=== PATIENT | female | born 1950 | race Caucasian/White ===

== ENCOUNTER 2020-06-05 10:15 | Inpatient (IN) | payer MEDICARE ==
[~2020-06-05] VITALS: Ht 165.1 cm; Wt 156.5 kg
[2020-06-05] VITALS (12 sets, daily range): BP systolic 100–154; BP diastolic 64–80
--- NOTE | 2020-06-05 10:15 | NUR ---
1000 ARRIVAL PT ARRIVED TO ED WITH C/O RIGHT KNEE PAIN. PT WAS AT A REST STOP WHEN THE WIND KNOCKED HER DOWN LANDING ON HER RIGHT KNEE. PT HAS ABRASION TO RIGHT KNEE WITH NO ACTIVE BLEEDING. OUTWARD ROTATION NOTED TO RIGHT LEG, PT DENIES ANY HIP PAIN. 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 BEDSIDE MONITORS APPLIED. VITAL SIGNS STABLE. BED IN LOW LOCKED POSITION. 20G IV TO RIGHT AC PLACED BY EMS PRIOR TO ARRIVAL.
[2020-06-05] MEDS ORDERED: ADACEL VIAL IM ONE ×2 (10:27→10:30)
--- NOTE | 2020-06-05 10:35 | ER.PDOC ---
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 Patient was caught by wind and lost her balance. She did not hit her head. Onset: just prior to arrival Where: street Context: fall Severity: moderate Allergies: Coded Allergies: No Known Allergies (Unverified , 06/05/20) Past Medical History Medical History: arrhythmia, hypertension Surgical History: appendectomy, cholecystectomy, , hysterectomy, knee Family History Significant Family History: no pertinent family hx Social History Smoking: non-smoker Alcohol Use: none Drug Use: none Review of Systems Constitutional: no symptoms reported EENTM: no symptoms reported Respiratory: no symptoms reported Cardiovascular: no symptoms reported Gastrointestinal: no symptoms reported Musculoskeletal: see HPI All Other Systems: Reviewed and Negative Physical Exam General Appearance: Alert, No Apparent Distress Foot: nml inspection, non-tender, nml color/temp, skin intact Ankle: nml inspection, non-tender, nml ROM, no joint swelling, skin intact Knee: tenderness (right knee), swelling Thigh/Hip: nml inspection 1 - tenderness with abrasion Gait: unable to bear weight Neuro/Vasc/Tendon: sensation nml, motor nml, no vascular compromise, tendon function nml Skin: warm/dry Head/ENT: nml inspection, pharynx nml Neck/Back: nml inspection, non-tender Abdomen: non-tender, pelvis stable Results/Orders Results/Orders Orders - MILES TRAVIS MD Xr Knee Rt 2v (06/05/20 10:23) Diph,Pertuss(Acell),Tet Vac/Pf (Adacel V (06/05/20 10:30) Diph,Pertuss(Acell),Tet Vac/Pf (Adacel V (06/05/20 10:27) Cbc With Auto Diff (06/05/20 10:34) Comprehensive Metabolic Panel (06/05/20 10:34) PT (06/05/20 10:34) Partial Thromboplastin Time. (06/05/20 10:34) Xr Chest 1v (06/05/20 10:34) Ekg-Routine (06/05/20 10:34) Hydromorphone Hcl (Dilaudid) (06/05/20 11:47) Phytonadione (Vit K1) (Vitamin K) (06/05/20 11:49) Phytonadione (Vit K1) (Vitamin K) (06/05/20 11:53) Hydromorphone Hcl (Dilaudid) (06/05/20 11:53) Propofol (Diprivan) (06/05/20 11:58) 0.9 % Sodium Chloride (Ns 1000ml) (06/05/20 11:58) Vital Signs Date Time Temp Pulse Resp B/P (MAP) Pulse Ox O2 Delivery O2 Flow Rate FiO2 06/05/20 11:46 20 06/05/20 11:46 98.1 66 20 114/79 (91) 92 Nasal Canula 2.00 06/05/20 11:15 98.1 66 20 113/72 (86) 92 Nasal Canula 2.00 06/05/20 11:15 20 06/05/20 10:49 20 06/05/20 10:49 98.1 64 20 115/79 (91) 92 Nasal Canula 2.00 06/05/20 10:24 20 06/05/20 10:23 98.1 70 20 154/70 (98) 92 Nasal Canula 06/05/20 10:15 98.1 70 20 92 06/05/20 10:15 98.1 70 20 154/70 (98) 92 Nasal Canula 2.00 06/05/20 10:15 98.1 70 20 Administered Medications Medications (Trade) Dose Ordered Sig/Renée Route PRN Reason Start Time Stop Time Status Last Admin Dose Admin Diphtheria/ Tetanus/Acell Pertussis (Adacel Vial) 0.5 ml ONCE ONCE IM 06/05/20 10:30 06/05/20 10:31 DC 06/05/20 10:29 0.5 ML Laboratory Tests Test 06/05/20 10:43 White Blood Count 9.9 10^3/uL (4.5-11.0) Red Blood Count 4.93 10^6/uL (4.00-5.20) Hemoglobin 14.9 g/dL (12.0-15.0) Hematocrit 45.9 % (36.0-46.0) Mean Corpuscular Volume 93.1 fL (78-100) Mean Corpuscular Hemoglobin 30.2 pg (26-34) Mean Corpuscular Hemoglobin Concent 32.5 g/dL (33-36.5) L Red Cell Distribution Width 13.2 % (11.5-14.5) Platelet Count 208 10^3/uL (150-400) Mean Platelet Volume 8.9 fL (7.8-11.0) Neutrophils (%) (Auto) 80.7 % (41.0-85.0) Lymphocytes (%) (Auto) 14.3 % (24.0-44.0) L Monocytes (%) (Auto) 4.4 % (5.0-12.0) L Neutrophils # (Auto) 8.0 10^3/uL (1.8-7.7) H Lymphocytes # (Auto) 1.41 10^3/uL1 (1.0-4.8) Monocytes # (Auto) 0.4 10^3/uL (0.3-0.8) Absolute Immature Granulocyte (auto 0.03 10^3 u/L (0-2) Absolute Eosinophils (auto) 0.0 10^3/uL (0.0-0.2) Immature Granulocytes % 0.30 % (0.00-0.50) Eosinophils % 0.2 % (0.0-5.0) Basophils % 0.1 % (0.0-0.2) Basophils # 0.0 10^3/uL (0.0-0.1) Prothrombin Time 27.0 SEC (9.3-11.3) H Prothrombin Time INR (Non-Therap) 2.7 Activated Partial Thromboplast Time 26.9 SEC (24.67-30.72) Sodium Level 141 mmol/L (132-145) Potassium Level 4.3 mmol/L (3.6-5.2) Chloride Level 105.0 mmol/L (96-109) Carbon Dioxide Level 27.2 mmol/L (20.0-32) Anion Gap 13.1 Blood Urea Nitrogen 14 mg/dL (7-18) Creatinine 1.20 mg/dL (0.59-1.40) Estimated GFR () 53.7 (>/=60) Est GFR (CKD-EPI)(Non-Afr Latvian) 44.4 (>/=60) BUN/Creatinine Ratio 11.0 Glucose Level 134 mg/dL (70-110) H Calcium Level 9.1 mg/dL (8.4-10.5) Total Bilirubin 0.5 mg/dL (0.2-1.0) Aspartate Amino Transferase (AST) 13 U/L (0-35) Alanine Aminotransferase (ALT) 19 U/L (12-78) Alkaline Phosphatase 91 U/L (50-136) Total Protein 7.1 g/dL (6.4-8.2) Albumin 3.7 g/dL (3.4-5.0) Globulin 3.4 Albumin/Globulin Ratio 1.088 Progress Progress X rays right knee: Distal transverse femoral fracture immediately proximal to the knee arthroplasty. ER DEPART Departure Time of Disposition: 12:22 Disposition: 09 ADMITTED INPATIENT Impression: Primary Impression: Fracture, femur Additional Impressions: Abrasion NEC Fall Condition: Stable Comments Admitted to Dr. Brasher Duration or Time Spent with Pa: 60 min Problem Qualifiers Primary Impression: Fracture, femur Encounter type: initial encounter Femur location: shaft Fracture type: closed Fracture morphology: transverse Fracture alignment: displaced Laterality: right Qualified Codes: S72.321A - Displaced transverse fracture of shaft of right femur, initial encounter for closed fracture Additional Impressions: Fall Encounter type: initial encounter Qualified Codes: W19.XXXA - Unspecified fall, initial encounter MILES TRAVIS MD Jun 05, 2020 10:35
[2020-06-05 10:46] LABS: BASOPHIL % 0.1 % (0.0-0.2); EOSINOPHIL % 0.2 % (0.0-5.0); LYMPHOCYTES # 1.41 10^3/uL1 (1.0-4.8); LYMPHOCYTES % 14.3 % (24.0-44.0); MEAN CORP HGB 30.2 pg (26-34); MONOCYTES # 0.4 10^3/uL (0.3-0.8); MONOCYTES % 4.4 % (5.0-12.0); NEUTROPHILS % 80.7 % (41.0-85.0); PLATELET COUNT 208 10^3/uL (150-400); RED CELL DISTRIBUTION WIDTH 13.2 % (11.5-14.5)
--- NOTE | 2020-06-05 10:53 | PCM.EKG ---
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
--- NOTE | 2020-06-05 10:56 | NUR ---
HOME MEDICATIONS PT DOES NOT HAVE HOME MEDICATION LIST WITH HER. DAUGHTER WILL PROVIDE IT AT A LATER TIME.
[2020-06-05 11:08] LABS: CALCIUM 9.1 mg/dL (8.4-10.5); CARBON DIOXIDE 27.2 mmol/L (20.0-32)
--- NOTE | 2020-06-05 11:11 | NUR ---
MARYURI ZAMORA MBA ON THE PHONE WITH DOCTOR WAHL'S OFFICE AT THIS TIME.
--- NOTE | 2020-06-05 11:14 | DIREP ---
PROCEDURE:XRAY KNEE 2 VWS-RT COMPARISON:None. INDICATIONS:pain/injury FINDINGS: BONES:Distal transverse right femoral fracture immediately proximal to the right knee prosthesis, posterior displacement JOINTS:Normal. SOFT TISSUES:Soft tissue swelling OTHER:No additional findings. CONCLUSION:Distal transverse femoral fracture immediately proximal to the knee arthroplasty. Dictated by: Pepe Wilkerson MD on 06/05/2020 at 11:12 AM
--- NOTE | 2020-06-05 11:16 | DIREP ---
PROCEDURE:CHEST 1 VIEW COMPARISON:None. INDICATIONS:Medical clearance for surgery FINDINGS: LUNGS/PLEURA:No significant pulmonary parenchymal abnormalities. No effusions. VASCULATURE:Normal. Unremarkable pulmonary vasculature. CARDIAC:Normal. No cardiac silhouette abnormality or cardiomegaly. MEDIASTINUM:Left prepectoral pacemaker, dual lead. BONES:Normal. No fracture or visible bony lesion. OTHER:Negative. CONCLUSION:Clear AP portable lordotic chest, left prepectoral pacemaker Dictated by: Pepe Wilkerson MD on 06/05/2020 at 11:13 AM
--- NOTE | 2020-06-05 11:30 | NUR ---
DR MARYURI WAHL AT BEDSIDE.
[2020-06-05] MEDS ORDERED: DILAUDID IV STA (11:47)
[2020-06-05] MEDS ORDERED: VITAMIN K IM STA (11:49)
[2020-06-05] MEDS ORDERED: DILAUDID ONE ×2 (11:53→17:49)
[2020-06-05] MEDS ORDERED: VITAMIN K ONE (11:53)
[2020-06-05] MEDS ORDERED: NS 1000ML 1,000 ML ONE (11:58)
[2020-06-05] MEDS ORDERED: DIPRIVAN IV ONE (11:58)
--- NOTE | 2020-06-05 12:00 | NUR ---
CLOSED REDUCTION DR WAHL, Rosie ENGLE CRNA CLAIM AUDITORBia GONSALVES RN AT BEDSIDE. DR WAHL PERFORMED CLOSED REDUCTION AND PLACED KNEE IMMOBLIZER. START 1200, STOP 1215.
--- NOTE | 2020-06-05 12:01 | NUR ---
PAIN MEDICATION ANESTHESIA IS AT BEDSIDE TO PERFORM SEDATION FOR REDUCTIONAND REQUESTED TO HOLD PAIN MEDICATION AT THIS TIME.
--- NOTE | 2020-06-05 12:18 | NUR ---
DR CASTILLO PT ALERT AND ORIENTED, DR CASTILLO AT BEDSIDE TO EVALUATE PT.
--- NOTE | 2020-06-05 12:40 | DIREP ---
PROCEDURE:XRAY KNEE 2 VWS-RT COMPARISON:[facility], , XRAY KNEE 1-2 VWS-RT, 06/05/2020, 10:12 AM. INDICATIONS:REDUCTION FINDINGS: BONES:1.7 cm posterior displacement of the distal fragment is noted following reduction of periprosthetic fracture of the distal femur. JOINTS:The right knee arthroplasty remains in anatomic alignment. SOFT TISSUES:Normal. OTHER:No additional findings. CONCLUSION: 1. Improved alignment of periprosthetic fracture of the distal femur following closed reduction. 2. 1.7 cm posterior displacement of the distal fragment is now noted. Dictated by: Edvin Ibrahim M.D. on 06/05/2020 at 12:36 PM
--- NOTE | 2020-06-05 12:58 | NUR ---
[facility] STATED ROOM IS BEING CLEANED AT THIS TIME.
--- NOTE | 2020-06-05 13:37 | NUR ---
ROOM STATUS ROOM BEING CLEANED AND NOT AVAILABLE AT THIS TIME.
--- NOTE | 2020-06-05 14:00 | NUR ---
REPORT RECEIVED REPORT FROM JOSSELYN SANDOVAL. ASSUMED CARE AT THIS TIME. PATIENT DENIES AT THIS TIME
[2020-06-05] MEDS: LACTATED RINGERS 1,000 ML IV SCH (15:00)
[2020-06-05] MEDS ORDERED: BUSP10TA PO (15:14)
[2020-06-05] MEDS ORDERED: ASPI-667 PO (15:14)
[2020-06-05] MEDS ORDERED: SPIR25TA PO (15:14)
[2020-06-05] MEDS ORDERED: CITA40TA5 PO (15:14)
[2020-06-05] MEDS ORDERED: FLEC50TA PO (15:14)
[2020-06-05] MEDS ORDERED: BUPR150T23 PO (15:14)
[2020-06-05] MEDS ORDERED: [UNRECOGNIZED DRUG - CODE] PO (15:14)
[2020-06-05] MEDS ORDERED: WARF-35 PO ×2 (15:14)
[2020-06-05] MEDS ORDERED: ULTRAM ONE (16:54)
[2020-06-05] MEDS ORDERED: ULTRAM PO PRN ×2 (17:00→20:30)
--- NOTE | 2020-06-05 17:00 | NUR ---
MEDICATION RECEIVED ORDER FROM RAYO WAY FOR TRAMADOL 50 MG PO Q 6HRS.
--- NOTE | 2020-06-05 17:17 | PRM.CONS ---
CONSULTATION CONSULTATION Consult date: June 05, 2020 Attending physician: Dr. Trenton Brasher Reason for consultation: Concurrent medical care Consultation note: Patient is a 70-year-old female who [place] and she tripped and fell over. She had extreme pain to her right knee when this happened and she could not get up. She remembers everything that happened to her when she fell down. She denies any loss of consciousness. Paramedics were called and she was brought to the ER where she was found to have a femur fracture and was subsequently admitted to Ortho service. I was asked to come evaluate her and I did see her in the ER. She is a very poor historian but what I could gather from her was that she underwent a right total knee replacement 2 months ago and had general anesthesia and did fine with that. She did report that it took her a while to wake up from anesthesia but she did not require oxygen and she did fine with therapy afterwards. She denies any recent chest pain or fever or chills. She does report some shortness of breath but this is been going on for a long time. She denies any fatigue or exercise intolerance lately. She denies any hemoptysis/hematochezia/melena/hematemesis. She denies any abdominal pain and no dysuria and no diarrhea or constipation. She denies any night sweats and no syncope and no lethargy. Past medical history: Chronic atrial fibrillation, hypertension, obesity, obstructive sleep apnea Past surgical history: Appendectomy, cholecystectomy, , hysterectomy, right knee replacement, pacemaker placement Allergies: No known drug allergies Social history: No tobacco, no alcohol, no drug use Family history: Noncontributory for this admission Medications: They are currently getting a medication list for her since she does not know the names of her medications at this time Physical exam: Temperature 98.1, pulse 70, respirations 20, blood pressure 154/70, O2 sat 92% HEENT: OP clear, moist mucous membranes Neck: Supple, no JVD noted CV: S1 and S2 audible, PMI is laterally displaced, no tachycardia Lungs: Adequate aeration bilaterally with some decreased breath sounds at the bases Abdomen: Positive bowel sounds, soft abdomen, obese Extremities: Mild ankle edema noted bilaterally, no petechia, no purpura Neuro: Right leg is a mobilize currently but no gross motor or sensory deficits on the other extremities noted EKG: Sinus rhythm noted Labs: CBC is normal, PT 27, INR 2.7, chemistry panel looks okay with a glucose of 134 Chest x-ray: Pacemaker noted but no acute cardiopulmonary issues noted Right knee/leg x-rays: Displaced femur fracture above the right knee replacement Assessment/recommendation: We have this elderly female who has fallen and sustained a femur fracture and is adequately anticoagulated on Coumadin therapy for her history of A. 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 I plan to reverse her Coumadin since surgery is anticipated for tomorrow. The plan is to put her back on Coumadin once she is not a high risk for any bleeding. She does have a history of obstructive sleep apnea and is currently not on CPAP since she lost her machine 3 years ago; her O2 sats are adequate at this point so I will just follow her and will use CPAP in the hospital if she has any respiratory issues after surgery. MARIE CASTILLO MD Jun 05, 2020 17:17
--- NOTE | 2020-06-05 17:31 | NUR ---
ORDERS RECEIVED ORDERS FROM DR CASTILLO FOR 5MG VITAMIN K IV ONE TIME. REDRAW PTINR @[id number] Addendum: 06/05/20 at 1740 by Risa Healy RN - Med/commercial management accountant CANCEL THIS ORDER. WAS UNAWARE PATIENT HAD VITAMIN K IN ER.
--- NOTE | 2020-06-05 17:40 | NUR ---
LAB DRAW PTINR AT [address] CASTILLO WITH RESULTS
--- NOTE | 2020-06-05 17:45 | NUR ---
MEDICATION NOTIFIED DR CASTILLO PATIENT IS PAIN OF 9 ON HER RIGHT KNEE AFTER TAKING SCHEDULED 50 MG TRAMADOL PO. RECEIVED ORDER FOR 1 MG DIAUDID IV ONE TIME.
[2020-06-05] MEDS ORDERED: DILAUDID IV PRN (18:00)
[2020-06-05] MEDS ORDERED: SUBLIMAZE ONE (18:17)
[2020-06-05 19:09] LABS: BILIRUBIN,URINE NEGATIVE (NEGATIVE); UA COLOR YELLOW (YELLOW)
[2020-06-05 19:10] LABS: UROBILINOGEN,URINE NORMAL (NEGATIVE)
[2020-06-05] MEDS ORDERED: SUBLIMAZE IV ONE (19:30)
--- NOTE | 2020-06-05 21:25 | NUR ---
NOTIFIED OF PROTHROMBIN 22.6 AND INR 2.2. ORDER RECEIVED FOR VITAMIN K 5MG IV X1 DOSE .
[2020-06-05] MEDS ORDERED: VITAMIN K IV STA (21:27)
[2020-06-05] MEDS ORDERED: NS 100ML 100 ML IV ONE (21:35)
--- NOTE | 2020-06-05 21:40 | NUR ---
VITAMIN K 5MG ADDED TO 100ML NORMAL SALINE TO INFUSE OVER 30 MINUTES.
--- NOTE | 2020-06-05 22:20 | CNH ---
DATE OF CONSULTATION: 06/05/2020 CHIEF COMPLAINT: Painful right knee. HISTORY OF PRESENT ILLNESS: The patient is a 70-year-old female who fell today at a local gas station and injured the right knee. The patient had a total knee arthroplasty in March 2019. The patient was ambulating independently without a walker or a cane. Her x-rays showed the displaced supracondylar periprosthetic fracture of the right femur and I was consulted for further evaluation and treatment. PHYSICAL EXAMINATION: Today shows that the patient had a small abrasion about the anterior portion of the right knee. She has a healed anterior incision. There is decreased range of motion secondary to pain as well as pain with palpation, but no open wounds. She has no other areas of tenderness or deformity. Her x-rays revealed a displaced distal femur fracture, periprosthetic. The patient has good sensation about the right foot as well as 2+ dorsalis pedis pulse. ASSESSMENT: Closed displaced periprosthetic distal femur fracture, right femur. PLAN: The patient was given some IV Diprivan by the Anesthesia Department. The fracture was reduced. The post-reduction x-rays show satisfactory reduction of the fracture. The patient was placed in a knee immobilizer. She still has a good 2+ dorsalis pedis pulse. The patient is currently on Coumadin for atrial fibrillation and has an elevated INR. She will be given vitamin K and we will try to improve her INR before proceeding with ORIF. We will ask Dr. Mckeon to see the patient in consultation. Trenton Brasher MD DR: MAI/guerita JOB# [id number]
--- NOTE | 2020-06-05 23:50 | NUR ---
PT GIVEN SPONGE BATH WITH SURGICAL SCRUB. COMPLETE LINEN CHANGE AND GOWN CHANGE.
[2020-06-06] VITALS (14 sets, daily range): BP systolic 97–135; BP diastolic 38–98
[2020-06-06] MEDS: VALIUM PO PRN
--- NOTE | 2020-06-06 00:01 | NUR ---
PT NPO AT THIS TIME.
[2020-06-06] MEDS ORDERED: DILAUDID IV ONE (02:30)
[2020-06-06] MEDS: LACTATED RINGERS 1,000 ML IV SCH ×3 (03:45→21:45)
[2020-06-06 05:02] LABS: MEAN CORP HGB 30.1 pg (26-34); RED CELL DISTRIBUTION WIDTH 13.2 % (11.5-14.5)
[2020-06-06 05:17] LABS: CALCIUM 8.4 mg/dL (8.4-10.5); CARBON DIOXIDE 29.6 mmol/L (20.0-32)
[2020-06-06] MEDS ORDERED: DILAUDID ONE (06:07)
--- NOTE | 2020-06-06 06:27 | NUR ---
DR. CASTILLO NOTIFIED OF PT PT 15.1 AND INR 1.5 ORDER RECEIVED FOR VIT K 5MG TO BE GIVEN IV AND HAVE 1 UNIT FFP READY INCASE NEEDED IN SURGERY.
[2020-06-06] MEDS ORDERED: VITAMIN K IV STA (06:29)
[2020-06-06] MEDS ORDERED: NS 100ML 100 ML IV ONE ×2 (06:36→09:42)
--- NOTE | 2020-06-06 06:41 | NUR ---
VIT K 5MG GIVEN IV IN 100 ML OF NS TO INFUSE OVER 30 MINUTES.
--- NOTE | 2020-06-06 09:26 | PCM.HP ---
History of Present Illness Reason for Visit: (1) Femur fracture, right ICD Code: S72.91XA - Unspecified fracture of right femur, initial encounter for closed fracture SNOMED: 14108514, [id number] Was this Problem Present on Ad: Yes-DX present @time ofIP Hx of Present Illness patient states she fell yesterday while at the bus stop. Patient cant remember how she landed. Patient doesn't use any assistive devices. Patient had a right total knee arthroplasty done in March 2020. Right TKA was done in [place], [place]. Patient has a history of HTN, depression and anxiety. Doesn't know her medications currently. Sister is sending her medication list. X-rays show displaced right distal femur fracture. Hardware of knee intact. Patient is morbidly obese. Dr Brasher reduced the femur in the ER. Patient states her pain is currently controlled. Review of Systems Constitutional: No: Fever, Chills, Sweats, Weakness, Malaise, Other Eyes: No: Pain, Vision change, Conjunctivae inflammation, Eyelid inflammation, Other, Redness ENT: No: Ear pain, Ear discharge, Nose pain, Nose discharge, Nose congestion, Mouth pain, Mouth swelling, Throat pain, Throat swelling, Other Respiratory: No: Cough, Dry, Shortness of breath, SOB with excertion, Wheezing, Hemoptysis, Pleuritic Pain, Sputum, Wheezing, Other Cardiovascular: No: Chest Pain, Palpitations, Orthopnea, Paroxysmal Noc. Dyspnea, Edema, Lt Headedness, Other Gastrointestinal: No: Nausea, Vomiting, Abdominal Pain, Diarrhea, Constipation, Melena, Hematochezia, Other Genitourinary: No Dysuria, No Frequency, No Incontinence, No Hematuria, No Retention, No Other Musculoskeletal: other (right leg pain) Skin: No: Rash, Lesions, Jaundice, Bruising, Other Neurological: No: Weakness, Numbness, Incoordination, Change in speech, Confusion, Seizures, Other Allergies: Coded Allergies: No Known Allergies (Unverified , 06/05/20) Scheduled Aspirin (Aspirin), 1 TAB PO DAILY, (Reported) Bupropion Hcl (Bupropion Xl), 3 TAB PO DAILY, (Reported) Buspirone Hcl (Buspirone Hcl), 1 TAB PO TID, (Reported) Citalopram Hydrobromide (Citalopram Hbr), 1 TAB PO DAILY, (Reported) Flecainide Acetate (Flecainide Acetate), 50 MG PO BID, (Reported) Oxybutynin Chloride (Oxybutynin Chloride Er), 1 TAB PO DAILY, (Reported) Spironolactone 25MG (Aldactone 25MG), 1 TAB PO DAILY, (Reported) Warfarin Sodium (Warfarin Sodium), 1.5 TAB PO -W-, (Reported) Warfarin Sodium (Warfarin Sodium), 1 TAB PO [id number], (Reported) VTE VTE Risk Total Score: 2 VTE Risk Score VTE Risk: Score 0-1 = Low Risk (Aggressive mobilization; early ambulation; no VTE prophylaxis required) Score 2: Moderate Risk (Intermittent/Pneumatic Compression Device OR Lovenox/Heparin/Coumadin) Score 3-4: High Risk (Intermittent/Pneumatic Compression Device AND Lovenox/Heparin/Coumadin) Score > or =5: Highest Risk (Intermittent/Pneumatic Compression Device AND Lovenox/Heparin/Coumadin) VTE VTE Present on Admission: No Currently receiving anticoagul: Yes VTE Risk Total Score: 2 Exam Vital Signs Vital Signs Date Time Temp Pulse Resp B/P (MAP) Pulse Ox O2 Delivery O2 Flow Rate FiO2 06/06/20 08:03 98.4 63 16 100/59 (73) 93 Nasal Canula 2.00 General Appearance: Alert, Oriented X3, Cooperative, No acute distress HEENT: Atraumatic, PERRLA, EOMI, Mucous membr. moist/pink, Other (glasses) Respiratory: Clear to auscultation, Normal air movement Cardiovascular: Regular rate, Normal S1, Normal S2 Abdominal: Normal bowel sounds, Soft, No tenderness Extremities: No clubbing, No edema, Normal pulses, Other (right leg was reduced by Dr Brasher in the ER. Currently in knee immobilizer. Neuros intact.) Skin: No rash, No breakdown, No lesions Neuro: Normal gait, Normal speech, Strength at 5/5 X4 ext, Normal tone Psych/Mental Status: Mental status NL, Mood NL Assessment/Plan Assessment/Plan Problems: (1) Femur fracture, right ICD Code: S72.91XA - Unspecified fracture of right femur, initial encounter for closed fracture SNOMED: [id number], [id number] Plan Right femur fracture s/p fall- ORIF of right femur planned for today 06/06/20 currently patient is NWB RLE continue medications; PRN pain meds keep knee brace intact fall and safety precautions NPO for surgery Problem Qualifiers (1) Femur fracture, right: Encounter type: initial encounter Fracture alignment: displaced TYRONE BERNAL NP Jun 06, 2020 09:26
[2020-06-06] MEDS ORDERED: ANCEF ONE (09:42)
--- NOTE | 2020-06-06 09:59 | NUR ---
STATUS Pt off of unit at this time for surgical procedure.
[2020-06-06] MEDS ORDERED: BENADRYL PO ONE (10:00)
[2020-06-06] MEDS ORDERED: DIPRIVAN IV ONE (10:55)
[2020-06-06] MEDS ORDERED: SUBLIMAZE ONE (10:56)
[2020-06-06] MEDS ORDERED: ZOFRAN ONE (10:57)
[2020-06-06] MEDS ORDERED: BRIDION IV ONE (10:57)
[2020-06-06] MEDS ORDERED: LIDOCAINE 2% VIAL ONE (10:58)
[2020-06-06] MEDS ORDERED: DECADRON ONE (10:59)
[2020-06-06] MEDS ORDERED: TORADOL ONE (10:59)
[2020-06-06] MEDS ORDERED: ROCURONIUM BROMIDE IV ONE (11:00)
[2020-06-06] MEDS ORDERED: ANCEF 3 GM in NS 100ML 100 ML IV ONE (11:00)
[2020-06-06] MEDS ORDERED: NS 250ML 250 ML IV ONE (11:24)
[2020-06-06] MEDS ORDERED: SODIUM CHLORIDE IRR BOTTLE IR ONE (11:24)
[2020-06-06] MEDS ORDERED: HESPAN 6%-NS INFUSION BAG 500 ML IV ONE (12:17)
--- NOTE | 2020-06-06 14:48 | OPH ---
DATE OF SURGERY: 06/06/2020 PREOPERATIVE DIAGNOSIS: Closed displaced right distal femur periprosthetic fracture. POSTOPERATIVE DIAGNOSIS: Closed displaced right distal femur, periprosthetic fracture of. OPERATIVE PROCEDURE: Open reduction and internal fixation, right distal femur fracture using a Synthes lateral condylar plate, 6-hole. SURGEON: Trenton Brasher MD ANESTHESIA: General endotracheal. BLOOD LOSS: 500 mL. DRAINS: None. DESCRIPTION OF INDICATIONS: The patient is a 70-year-old female. She lives in [place] and was passing through [place] yesterday. She got out of her car and fell injuring the right knee. Approximately 2 months ago, she had right total knee arthroplasty done in [place], [place]. The patient's x-rays showed a displaced supracondylar periprosthetic fracture of the right femur. The patient's prosthesis appeared stable. She had a short oblique fracture that was markedly displaced. The neurovascular exam was normal. The patient was seen by myself in the Emergency Room and the fracture was reduced and she was placed in a long leg splint. The patient's INR was corrected because she is on Coumadin for AFib and she was taken to the operating room today for the above procedure. DESCRIPTION OF PROCEDURE: The patient was placed on the operating table in the supine position. General endotracheal anesthetic was induced without difficulty. The patient was given a general endotracheal anesthetic. Right lower extremity was sterilely prepped and draped. The patient's BMI is 53. The patient had a lateral incision made about the knee. Incision was taken through the skin and the subcutaneous tissues. The bleeding was controlled with cautery. The IT band was opened in line with the skin incision. The vastus lateralis was reflected anteriorly. The fracture was identified and reduced with some bone clamps. We placed a 6-hole Synthes lateral condylar plate against the bone. Distally, the plate was held initially into position with a 7.0 conical screw through the central drill hole. Proximally, a 4.5 cortical screw was used to stabilize the plate proximally. AP and lateral x-rays showed satisfactory reduction of the fracture and satisfactory positioning of the hardware as well as the knee. The patient then had multiple locking screws placed distally as well as two unicortical screws. It could not be passed because of the pegs on the prosthesis. Proximally, she had 3 locking screws and one 4.5 cortical screw placed. The patient's reduction was felt to be satisfactory. Because of the large amount of metal in the patient's leg, it was difficult with the C-arm to fully assess the reduction on the lateral view, but clinically it appeared to be satisfactory. The AP showed satisfactory alignment. The patient had the wounds copiously irrigated. We used some Synthes allograft DBX bone graft anteriorly and medially about the fracture site to help enhance healing. The IT band was then closed with a #2 PDS in an interrupted cubsmd-qu-ocima manner. The deep subcutaneous was closed with a 2-0 Monocryl barbed in a running manner. The superficial subcutaneous was closed with a barbed 2-0 Monocryl in a running manner. The skin was closed with solomon. A large Prevena suction type dressing was applied, reinforced with 4 x 4s, ABD pads, cast padding and Priyank wrap. Knee immobilizer was placed and the patient was extubated in the operating room and sent to recovery in stable condition. Trenton Brasher MD DR: MAI/guerita JOB# [id number]
[2020-06-06] MEDS ORDERED: OFIRMEV IV ONE (15:00)
[2020-06-06] MEDS ORDERED: CEPACOL SORE THROAT LOZENGE MM PRN (15:00)
[2020-06-06] MEDS ORDERED: OFIRMEV 100 ML IV ONE (15:03)
[2020-06-06] MEDS ORDERED: LACTATED RINGERS 1,000 ML ONE (15:40)
[2020-06-06] MEDS ORDERED: ULTRAM ONE ×2 (15:42)
[2020-06-06] MEDS: ULTRAM PO PRN ×2 (15:45→22:42)
--- NOTE | 2020-06-06 15:47 | DIREP ---
PROCEDURE:XRAY FEMUR 2 VWS-RT COMPARISON:[facility], CR, XRAY KNEE 1-2 VWS-RT, 06/05/2020, 11:51 AM. INDICATIONS:POST OP FEMUR FX FINDINGS: BONES:Interval metallic plate and screw fixation of displaced distal femoral fracture. Hardware is well seated and intact. Alignment is improved and near anatomic. Right knee arthroplasty is in place. JOINTS:Anatomic alignment about the knee arthroplasty. SOFT TISSUES:Small joint effusion with air-fluid level . Soft tissue edema about the knee. Surgical solomon overlie the knee. A drain is in place. OTHER:No additional findings. CONCLUSION: Postsurgical change consistent with recent metallic plate and screw fixation of a displaced distal femoral fracture. Hardware is well seated and intact. Alignment is improved and now near anatomic. Dictated by: Jonny Hartley MD on 06/06/2020 at 03:44 PM
--- NOTE | 2020-06-06 16:10 | NUR ---
STATUS Received pt back up to unit from OR at this time. Received report from JAIME Christianson. Pt is stable and resting comfortably at this time. This nurse to continue with the plan of care.
[2020-06-06 17:56] LABS: MEAN CORP HGB 30.9 pg (26-34); RED CELL DISTRIBUTION WIDTH 13.1 % (11.5-14.5)
[2020-06-06] MEDS: TYLENOL PO SCH (18:09)
[2020-06-06] MEDS: ANCEF 2 GM/D5W 50ML 50 ML IV SCH (18:11)
--- NOTE | 2020-06-06 19:32 | PRM.PN ---
Subjective Subjective Date: Jun 06, 2020 Time: 19:15 Subjective Pt back from OR; had some low BPs but improved now; reports pain is ok at this time; no active bleeding reported so far VTE VTE Risk Total Score: 2 VTE Risk Score VTE Risk: Score 0-1 = Low Risk (Aggressive mobilization; early ambulation; no VTE prophylaxis required) Score 2: Moderate Risk (Intermittent/Pneumatic Compression Device OR Lovenox/Heparin/Coumadin) Score 3-4: High Risk (Intermittent/Pneumatic Compression Device AND Lovenox/Heparin/Coumadin) Score > or =5: Highest Risk (Intermittent/Pneumatic Compression Device AND Lovenox/Heparin/Coumadin) Antico:Hep/LMWH/Coum/Xarelto: No Mechanical device ordered: Yes Reasons not ordering prophylax: Blood coag disorder Review of Systems Constitutional: No: Fever, Chills, Sweats, Weakness, Malaise, Other Eyes: No: Pain, Vision change, Conjunctivae inflammation, Eyelid inflammation, Other, Redness ENT: No: Ear pain, Ear discharge, Nose pain, Nose discharge, Nose congestion, Mouth pain, Mouth swelling, Throat pain, Throat swelling, Other Respiratory: No: Cough, Dry, Shortness of breath, SOB with excertion, Wheezing, Hemoptysis, Pleuritic Pain, Sputum, Wheezing, Other Cardiovascular: No: Chest Pain, Palpitations, Orthopnea, Paroxysmal Noc. Dyspnea, Edema, Lt Headedness, Other Gastrointestinal: No: Nausea, Vomiting, Abdominal Pain, Diarrhea, Constipation, Melena, Hematochezia, Other Genitourinary: No Dysuria, No Frequency, No Incontinence, No Hematuria, No Retention, No Other Musculoskeletal: other (right leg pain) Skin: No: Rash, Lesions, Jaundice, Bruising, Other Neurological: No: Weakness, Numbness, Incoordination, Change in speech, Confusion, Seizures, Other Allergies: Coded Allergies: No Known Allergies (Unverified , 06/05/20) Scheduled Aspirin (Aspirin), 1 TAB PO DAILY, (Reported) Bupropion Hcl (Bupropion Xl), 3 TAB PO DAILY, (Reported) Buspirone Hcl (Buspirone Hcl), 1 TAB PO TID, (Reported) Citalopram Hydrobromide (Citalopram Hbr), 1 TAB PO DAILY, (Reported) Flecainide Acetate (Flecainide Acetate), 50 MG PO BID, (Reported) Oxybutynin Chloride (Oxybutynin Chloride Er), 1 TAB PO DAILY, (Reported) Spironolactone 25MG (Aldactone 25MG), 1 TAB PO DAILY, (Reported) Warfarin Sodium (Warfarin Sodium), 1.5 TAB PO -W-, (Reported) Warfarin Sodium (Warfarin Sodium), 1 TAB PO [id number], (Reported) Objective Vitals and I/O Vital Sign - Last 24 Hours 06/05/20 06/05/20 06/05/20 06/06/20 19:57 23:21 23:24 00:05 Temp 98.6 99.4 Pulse 64 64 65 Resp 18 18 18 B/P (MAP) 102/65 (77) 120/74 (89) Pulse Ox 95 96 95 O2 Delivery Nasal Canula Nasal Cannula Nasal Cannula Nasal Canula O2 Flow Rate 2.00 2.00 2.00 06/06/20 06/06/20 06/06/20 06/06/20 04:53 08:03 10:00 14:24 Temp 99.4 98.4 Pulse 67 63 63 Resp 18 16 16 B/P (MAP) 97/64 (75) 100/59 (73) Pulse Ox 97 93 93 O2 Delivery Nasal Canula Nasal Canula Nasal Cannula O2 Flow Rate 2.00 2.00 10 06/06/20 06/06/20 06/06/20 06/06/20 14:24 14:35 14:45 14:55 Temp 100.8 100.8 100.4 Pulse 73 73 75 69 Resp 16 16 18 16 B/P (MAP) 127/79 (95) 128/90 (103) 107/38 (61) 115/67 (83) Pulse Ox 98 98 99 O2 Delivery Non-Rebreather Non-Rebreather Non-Rebreather Non-Rebreather O2 Flow Rate 10 10 10 10 06/06/20 06/06/20 06/06/20 06/06/20 15:05 15:15 15:25 15:35 Pulse 68 71 67 66 Resp 16 14 16 16 B/P (MAP) 123/79 (94) 120/75 (90) 135/98 (110) 126/79 (95) Pulse Ox 99 100 94 95 O2 Delivery Nasal Canula Nasal Canula Nasal Canula Nasal Canula Non-Rebreather Non-Rebreather O2 Flow Rate 3 3 3 3 06/06/20 06/06/20 06/06/20 15:45 15:55 16:45 Temp 99.9 Pulse 66 66 Resp 16 16 B/P (MAP) 122/76 (91) 120/80 (93) Pulse Ox 97 95 O2 Delivery Nasal Canula Nasal Canula Nasal Cannula Non-Rebreather O2 Flow Rate 3 3 2.00 Intake and Output 06/06/20 07:00 Intake Total 1966 ml Output Total 450 ml Balance 1516 ml General: Alert, Oriented X3, Cooperative, No acute distress HEENT: Atraumatic, PERRLA, EOMI, Mucous membr. moist/pink, Other (glasses) Neck: Supple Lungs: Clear to auscultation, Normal air movement Heart: Regular rate, Normal S1, Normal S2 Abdomen: Normal bowel sounds, Soft, No tenderness Extremities: No clubbing, No edema, Normal pulses, Other (right leg was reduced by Dr Brasher in the ER. Currently in knee immobilizer. Neuros intact.) Skin: No significant lesion Neuro: Normal speech, Strength at 5/5 X4 ext, Normal tone Psych/Mental Status: Mental status NL, Mood NL All Results(Lab/Rad) Laboratory Tests Test 06/05/20 20:25 06/06/20 04:45 Prothrombin Time 22.6 SEC 15.1 SEC Prothrombin Time INR (Non-Therap) 2.2 1.5 White Blood Count 8.2 10^3/uL Red Blood Count 3.92 10^6/uL Hemoglobin 11.8 g/dL Hematocrit 37.1 % Mean Corpuscular Volume 94.6 fL Mean Corpuscular Hemoglobin 30.1 pg Mean Corpuscular Hemoglobin Concent 31.8 g/dL Red Cell Distribution Width 13.2 % Platelet Count 171 10^3/uL Mean Platelet Volume 8.9 fL Sodium Level 141 mmol/L Potassium Level 4.0 mmol/L Chloride Level 106.0 mmol/L Carbon Dioxide Level 29.6 mmol/L Anion Gap 9.4 Blood Urea Nitrogen 12 mg/dL Creatinine 1.12 mg/dL Estimated GFR () 58.2 Est GFR (CKD-EPI)(Non-Afr Irish) 48.1 BUN/Creatinine Ratio 10.0 Glucose Level 145 mg/dL Calcium Level 8.4 mg/dL Total Bilirubin 0.7 mg/dL Aspartate Amino Transf (AST/SGOT) 36 U/L Alanine Aminotransferase (ALT/SGPT) 40 U/L Alkaline Phosphatase 91 U/L Total Protein 5.9 g/dL Albumin 3.0 g/dL Globulin 2.9 Albumin/Globulin Ratio 1.034 Current Medications Medications (Trade) Dose Ordered Sig/Renée Route PRN Reason Start Time Stop Time Status Last Admin Dose Admin Diphtheria/ Tetanus/Acell Pertussis (Adacel Vial) 0.5 ml ONCE ONCE IM 06/05/20 10:30 06/05/20 10:31 DC 06/05/20 10:29 Diphtheria/ Tetanus/Acell Pertussis (Adacel Vial) 0.5 ml STK-MED ONCE IM 06/05/20 10:27 06/05/20 10:27 DC Hydromorphone HCl (Dilaudid) 1 mg STAT STAT IV 06/05/20 11:47 06/05/20 11:50 DC 06/05/20 12:26 Hydromorphone HCl (Dilaudid) 2 mg STK-MED ONCE .ROUTE 06/05/20 11:53 06/05/20 11:54 DC Propofol (Diprivan) 200 mg STK-MED ONCE IV 06/05/20 11:58 06/05/20 11:58 DC Sodium Chloride 1,000 ml @ ud STK-MED ONCE .ROUTE 06/05/20 11:58 06/05/20 11:58 DC Cefazolin Sodium 3 gm/Sodium Chloride 100 ml @ 100 mls/hr OT ONCE IV 06/06/20 11:00 06/06/20 11:59 DC Tramadol HCl (Ultram) 50 mg STK-MED ONCE .ROUTE 06/05/20 16:54 06/05/20 16:54 DC Tramadol HCl (Ultram) 50 mg Q6HR PRN PO PAIN 4 - 6 06/05/20 17:00 06/06/20 15:57 DC 06/05/20 17:10 Hydromorphone HCl (Dilaudid) 2 mg STK-MED ONCE .ROUTE 06/05/20 17:49 06/05/20 17:49 DC Hydromorphone HCl (Dilaudid) 1 mg OT PRN IV PAIN 7 - 10 06/05/20 18:00 06/06/20 02:25 DC 06/05/20 18:04 Fentanyl Citrate (Sublimaze) 50 mcg STK-MED ONCE .ROUTE 06/05/20 18:17 06/05/20 18:17 DC Fentanyl Citrate (Sublimaze) 25 mcg OT ONCE IV 06/05/20 19:30 06/06/20 02:25 DC 06/05/20 18:45 Tramadol HCl (Ultram) 100 mg Q4HR PRN PO PAIN 4 - 6 06/05/20 20:30 06/06/20 15:58 DC 06/05/20 22:21 Diazepam (Valium) 5 mg Q6HR PRN PO MUSCLE SPASM 06/05/20 20:30 07/05/20 20:29 06/06/20 00:00 Sodium Chloride 100 ml @ ud STK-MED ONCE IV 06/05/20 21:35 06/05/20 21:35 DC Hydromorphone HCl (Dilaudid) 1 mg OT ONCE IV 06/06/20 02:30 06/06/20 02:31 DC 06/06/20 06:08 Hydromorphone HCl (Dilaudid) 2 mg STK-MED ONCE .ROUTE 06/06/20 06:07 06/06/20 06:07 DC Sodium Chloride 100 ml @ ud STK-MED ONCE IV 06/06/20 06:36 06/06/20 06:36 DC Diphenhydramine HCl (Benadryl) 25 mg OT ONCE PO 06/06/20 10:00 06/06/20 10:01 DC 06/06/20 09:49 Cefazolin Sodium (Ancef) 1 gm STK-MED ONCE .ROUTE 06/06/20 09:42 06/06/20 09:43 DC Sodium Chloride 100 ml @ ud STK-MED ONCE IV 06/06/20 09:42 06/06/20 09:43 DC Propofol (Diprivan) 200 mg STK-MED ONCE IV 06/06/20 10:55 06/06/20 10:55 DC Fentanyl Citrate (Sublimaze) 50 mcg STK-MED ONCE .ROUTE 06/06/20 10:56 06/06/20 10:57 DC Ondansetron HCl (Zofran) 4 mg STK-MED ONCE .ROUTE 06/06/20 10:57 06/06/20 10:57 DC Lidocaine HCl (Lidocaine 2% Vial) 500 mg STK-MED ONCE .ROUTE 06/06/20 10:58 06/06/20 10:58 DC Ketorolac Tromethamine (Toradol) 30 mg STK-MED ONCE .ROUTE 06/06/20 10:59 06/06/20 10:59 DC Rocuronium [place] (Rocuronium [place]) 50 mg STK-MED ONCE IV 06/06/20 11:00 06/06/20 11:00 DC Sodium Chloride (Sodium Chloride Irr Bottle) 1,000 ml STK-MED ONCE IR 06/06/20 11:24 06/06/20 11:24 DC Sodium Chloride 250 ml @ ud STK-MED ONCE IV 06/06/20 11:24 06/06/20 11:24 DC Hetastarch/Sodium Chloride 500 ml @ ud STK-MED ONCE IV 06/06/20 12:17 06/06/20 12:17 DC Tramadol HCl (Ultram) 50 mg Q6H PRN PO PAIN 1 - 3 06/06/20 15:00 07/06/20 14:59 Tramadol HCl (Ultram) 100 mg Q6H PRN PO PAIN 4 - 6 06/06/20 15:00 07/06/20 14:59 06/06/20 15:45 Rivaroxaban (Xarelto) 10 mg Q24HRS PO 06/07/20 15:00 07/07/20 14:59 Docusate Sodium (Colace) 100 mg DAILY PO 06/07/20 09:00 07/07/20 08:59 Throat Lozenges (Cepacol Sore Throat Lozenge) 1 each PRN PRN MM SORE THROAT 06/06/20 15:00 07/06/20 14:59 Famotidine (Pepcid) 20 mg DAILY PO 06/07/20 09:00 07/07/20 08:59 Cefazolin Sodium/ Dextrose (Ancef 2 Gm/D5W 50ml) 2 gm Q8 IV 06/06/20 22:00 06/06/20 16:05 DC Acetaminophen (Tylenol) 1,000 mg Q6HR PO 06/06/20 18:00 07/06/20 17:59 06/06/20 18:09 Acetaminophen 100 ml @ ud STK-MED ONCE IV 06/06/20 15:03 06/06/20 15:03 DC Acetaminophen (Ofirmev) 1,000 mg OT ONCE IV 06/06/20 15:00 06/06/20 15:37 DC 06/06/20 15:08 Tramadol HCl (Ultram) 50 mg STK-MED ONCE .ROUTE 06/06/20 15:42 06/06/20 15:42 DC Tramadol HCl (Ultram) 50 mg STK-MED ONCE .ROUTE 06/06/20 15:42 06/06/20 15:43 DC Cefazolin Sodium/ Dextrose 50 ml @ 50 mls/hr Q8H IV 06/06/20 19:00 06/07/20 11:59 06/06/20 18:11 Course Sepsis Screening Results: Posi: POSITIVE Sepsis Qualifier/Stage: SEPSIS RISK Duration or Total Time Spent w: 60 min Vitals & review Data Vital Sign - Last 24 Hours 06/05/20 06/05/20 06/05/20 06/06/20 19:57 23:21 23:24 00:05 Temp 98.6 99.4 Pulse 64 64 65 Resp 18 18 18 B/P (MAP) 102/65 (77) 120/74 (89) Pulse Ox 95 96 95 O2 Delivery Nasal Canula Nasal Cannula Nasal Cannula Nasal Canula O2 Flow Rate 2.00 2.00 2.00 06/06/20 06/06/20 06/06/20 06/06/20 04:53 08:03 10:00 14:24 Temp 99.4 98.4 Pulse 67 63 63 Resp 18 16 16 B/P (MAP) 97/64 (75) 100/59 (73) Pulse Ox 97 93 93 O2 Delivery Nasal Canula Nasal Canula Nasal Cannula O2 Flow Rate 2.00 2.00 10 06/06/20 06/06/20 06/06/20 06/06/20 14:24 14:35 14:45 14:55 Temp 100.8 100.8 100.4 Pulse 73 73 75 69 Resp 16 16 18 16 B/P (MAP) 127/79 (95) 128/90 (103) 107/38 (61) 115/67 (83) Pulse Ox 98 98 99 O2 Delivery Non-Rebreather Non-Rebreather Non-Rebreather Non-Rebreather O2 Flow Rate 10 10 10 10 06/06/20 06/06/20 06/06/20 06/06/20 15:05 15:15 15:25 15:35 Pulse 68 71 67 66 Resp 16 14 16 16 B/P (MAP) 123/79 (94) 120/75 (90) 135/98 (110) 126/79 (95) Pulse Ox 99 100 94 95 O2 Delivery Nasal Canula Nasal Canula Nasal Canula Nasal Canula Non-Rebreather Non-Rebreather O2 Flow Rate 3 3 3 3 06/06/20 06/06/20 06/06/20 15:45 15:55 16:45 Temp 99.9 Pulse 66 66 Resp 16 16 B/P (MAP) 122/76 (91) 120/80 (93) Pulse Ox 97 95 O2 Delivery Nasal Canula Nasal Canula Nasal Cannula Non-Rebreather O2 Flow Rate 3 3 2.00 Intake and Output 06/06/20 07:00 Intake Total 1966 ml Output Total 450 ml Balance 1516 ml Laboratory Tests Test 06/05/20 10:43 06/05/20 18:00 06/05/20 20:25 06/06/20 04:45 White Blood Count 9.9 10^3/uL 8.2 10^3/uL Red Blood Count 4.93 10^6/uL 3.92 10^6/uL Hemoglobin 14.9 g/dL 11.8 g/dL Hematocrit 45.9 % 37.1 % Mean Corpuscular Volume 93.1 fL 94.6 fL Mean Corpuscular Hemoglobin 30.2 pg 30.1 pg Mean Corpuscular Hemoglobin Concent 32.5 g/dL 31.8 g/dL Red Cell Distribution Width 13.2 % 13.2 % Platelet Count 208 10^3/uL 171 10^3/uL Mean Platelet Volume 8.9 fL 8.9 fL Neutrophils (%) (Auto) 80.7 % Lymphocytes (%) (Auto) 14.3 % Monocytes (%) (Auto) 4.4 % Neutrophils # (Auto) 8.0 10^3/uL Lymphocytes # (Auto) 1.41 10^3/uL1 Monocytes # (Auto) 0.4 10^3/uL Absolute Immature Granulocyte (auto 0.03 10^3 u/L Absolute Eosinophils (auto) 0.0 10^3/uL Immature Granulocytes % 0.30 % Eosinophils % 0.2 % Basophils % 0.1 % Basophils # 0.0 10^3/uL Prothrombin Time 27.0 SEC 22.6 SEC 15.1 SEC Prothrombin Time INR (Non-Therap) 2.7 2.2 1.5 Activated Partial Thromboplast Time 26.9 SEC Sodium Level 141 mmol/L 141 mmol/L Potassium Level 4.3 mmol/L 4.0 mmol/L Chloride Level 105.0 mmol/L 106.0 mmol/L Carbon Dioxide Level 27.2 mmol/L 29.6 mmol/L Anion Gap 13.1 9.4 Blood Urea Nitrogen 14 mg/dL 12 mg/dL Creatinine 1.20 mg/dL 1.12 mg/dL Estimated GFR () 53.7 58.2 Est GFR (CKD-EPI)(Non-Afr Irish) 44.4 48.1 BUN/Creatinine Ratio 11.0 10.0 Glucose Level 134 mg/dL 145 mg/dL Calcium Level 9.1 mg/dL 8.4 mg/dL Total Bilirubin 0.5 mg/dL 0.7 mg/dL Aspartate Amino Transf (AST/SGOT) 13 U/L 36 U/L Alanine Aminotransferase (ALT/SGPT) 19 U/L 40 U/L Alkaline Phosphatase 91 U/L 91 U/L Total Protein 7.1 g/dL 5.9 g/dL Albumin 3.7 g/dL 3.0 g/dL Globulin 3.4 2.9 Albumin/Globulin Ratio 1.088 1.034 Urine Collection Type UNKNOWN Urine Color YELLOW Urine Appearance CLEAR Urine Bilirubin NEGATIVE Urine Ketones NEGATIVE Urine Specific Emerson >1.030 Urine pH 5.0 Urine Protein NEGATIVE Urine Urobilinogen NORMAL Urine Nitrate NEGATIVE Urine Leukocyte Esterase NEGATIVE Urine Glucose (Auto)(UA) NEGATIVE Urine Blood MODERATE Urine RBC 2-5 RBC/HPF Urine WBC 0-2 WBC/HPF Urine Squamous Epithelial Cells FEW #/HPF Urine Bacteria NONE SEEN Current Medications Medications (Trade) Dose Ordered Sig/Renée PRN Reason Start Time Stop Time Status Last Admin Acetaminophen (Tylenol) 1,000 mg Q6HR 06/06/20 18:00 07/06/20 17:59 06/06/20 18:09 Cefazolin Sodium/ Dextrose 50 ml @ 50 mls/hr Q8H 06/06/20 19:00 06/07/20 11:59 06/06/20 18:11 Diazepam (Valium) 5 mg Q6HR PRN MUSCLE SPASM 06/05/20 20:30 07/05/20 20:29 06/06/20 00:00 Docusate Sodium (Colace) 100 mg DAILY 06/07/20 09:00 07/07/20 08:59 Famotidine (Pepcid) 20 mg DAILY 06/07/20 09:00 07/07/20 08:59 Rivaroxaban (Xarelto) 10 mg Q24HRS 06/07/20 15:00 07/07/20 14:59 Throat Lozenges (Cepacol Sore Throat Lozenge) 1 each PRN PRN SORE THROAT 06/06/20 15:00 07/06/20 14:59 Tramadol HCl (Ultram) 50 mg Q6H PRN PAIN 1 - 3 06/06/20 15:00 07/06/20 14:59 Tramadol HCl (Ultram) 100 mg Q6H PRN PAIN 4 - 6 06/06/20 15:00 07/06/20 14:59 06/06/20 15:45 LEVEL 1 SEPSIS INFECTION CRITE: ABX Therapy, Recent Invasive Procedure LEVEL 2-SIRS (LIST ALL THAT AP: None/Not assessed Cardiovascular Evidence: Not Assessed or None Hematologic Evidence: None/Not assessed Hepatic Evidence: None/Not assessed Metabolic Evidence: None/Not assessed Neurological Evidence: None/Not assessed Respiratory Evidence: Need for O2 to keep>90% Renal Evidence: None/Not assessed O2 Sat by Pulse Oximetry: 95 Oxygen Flow Rate: 2.00 Assessment/Plan Assessment/Plan Assessment/Plan 70 yo female with fall and R femur fx s/p ORIF with plate, chronic afib, KEVON - follow blood counts and plan to restart coumadin when no active bleeding is noted - pain control and therapy - follow clinically MARIE CASTILLO MD Jun 06, 2020 19:31
[2020-06-06] MEDS ORDERED: ANCEF 2 GM/D5W 50ML IV SCH (22:00)
[2020-06-07] VITALS (9 sets, daily range): BP systolic 100–114; BP diastolic 52–59
[2020-06-07] MEDS: TYLENOL PO SCH ×5 (00:12→23:41)
[2020-06-07] MEDS: VALIUM PO PRN ×2 (00:34→11:04)
--- NOTE | 2020-06-07 00:34 | NUR ---
Valium 5mg given for spasms in right leg.
[2020-06-07] MEDS: ANCEF 2 GM/D5W 50ML 50 ML IV SCH ×2 (03:45→13:40)
[2020-06-07] MEDS: ULTRAM PO PRN ×3 (04:22→18:16)
[2020-06-07 05:05] LABS: MEAN CORP HGB 30.5 pg (26-34); RED CELL DISTRIBUTION WIDTH 13.1 % (11.5-14.5)
[2020-06-07] MEDS: LACTATED RINGERS 1,000 ML IV SCH ×2 (05:50→16:57)
--- NOTE | 2020-06-07 09:19 | PRM.PN ---
Subjective Subjective Date: Jun 07, 2020 Time: 09:09 Subjective patient laying in bed, pain controlled complains of burning under the brace and muscle spasms VSS right leg immobilizer intact, prevenia intact VTE VTE Risk Total Score: 2 VTE Risk Score VTE Risk: Score 0-1 = Low Risk (Aggressive mobilization; early ambulation; no VTE prophylaxis required) Score 2: Moderate Risk (Intermittent/Pneumatic Compression Device OR Lovenox/Heparin/Coumadin) Score 3-4: High Risk (Intermittent/Pneumatic Compression Device AND Lovenox/Heparin/Coumadin) Score > or =5: Highest Risk (Intermittent/Pneumatic Compression Device AND Lovenox/Heparin/Coumadin) Antico:Hep/LMWH/Coum/Xarelto: No Mechanical device ordered: Yes Reasons not ordering prophylax: Blood coag disorder Review of Systems Constitutional: No: Fever, Chills, Sweats, Weakness, Malaise, Other Eyes: No: Pain, Vision change, Conjunctivae inflammation, Eyelid inflammation, Other, Redness ENT: No: Ear pain, Ear discharge, Nose pain, Nose discharge, Nose congestion, Mouth pain, Mouth swelling, Throat pain, Throat swelling, Other Respiratory: No: Cough, Dry, Shortness of breath, SOB with excertion, Wheezing, Hemoptysis, Pleuritic Pain, Sputum, Wheezing, Other Cardiovascular: No: Chest Pain, Palpitations, Orthopnea, Paroxysmal Noc. Dyspnea, Edema, Lt Headedness, Other Gastrointestinal: No: Nausea, Vomiting, Abdominal Pain, Diarrhea, Constipation, Melena, Hematochezia, Other Genitourinary: No Dysuria, No Frequency, No Incontinence, No Hematuria, No Retention, No Other Musculoskeletal: other (right leg pain) Skin: No: Rash, Lesions, Jaundice, Bruising, Other Neurological: No: Weakness, Numbness, Incoordination, Change in speech, Confusion, Seizures, Other Allergies: Coded Allergies: No Known Allergies (Unverified , 06/05/20) Scheduled Aspirin (Aspirin), 1 TAB PO DAILY, (Reported) Bupropion Hcl (Bupropion Xl), 3 TAB PO DAILY, (Reported) Buspirone Hcl (Buspirone Hcl), 1 TAB PO TID, (Reported) Citalopram Hydrobromide (Citalopram Hbr), 1 TAB PO DAILY, (Reported) Flecainide Acetate (Flecainide Acetate), 50 MG PO BID, (Reported) Oxybutynin Chloride (Oxybutynin Chloride Er), 1 TAB PO DAILY, (Reported) Spironolactone 25MG (Aldactone 25MG), 1 TAB PO DAILY, (Reported) Warfarin Sodium (Warfarin Sodium), 1.5 TAB PO -W-, (Reported) Warfarin Sodium (Warfarin Sodium), 1 TAB PO [id number], (Reported) Objective Vitals and I/O Vital Sign - Last 24 Hours 06/06/20 06/06/20 06/06/20 06/06/20 10:00 14:24 14:24 14:35 Temp 100.8 100.8 Pulse 63 73 73 Resp 16 16 16 B/P (MAP) 127/79 (95) 128/90 (103) Pulse Ox 93 98 O2 Delivery Nasal Cannula Non-Rebreather Non-Rebreather O2 Flow Rate 10 10 10 06/06/20 06/06/20 06/06/20 06/06/20 14:45 14:55 15:05 15:15 Temp 100.4 Pulse 75 69 68 71 Resp 18 16 16 14 B/P (MAP) 107/38 (61) 115/67 (83) 123/79 (94) 120/75 (90) Pulse Ox 98 99 99 100 O2 Delivery Non-Rebreather Non-Rebreather Nasal Canula Nasal Canula Non-Rebreather O2 Flow Rate 10 10 3 3 06/06/20 06/06/20 06/06/20 06/06/20 15:25 15:35 15:45 15:55 Temp 99.9 Pulse 67 66 66 66 Resp 16 16 16 16 B/P (MAP) 135/98 (110) 126/79 (95) 122/76 (91) 120/80 (93) Pulse Ox 94 95 97 95 O2 Delivery Nasal Canula Nasal Canula Nasal Canula Nasal Canula Non-Rebreather Non-Rebreather O2 Flow Rate 3 3 3 3 06/06/20 06/06/20 06/06/20 06/06/20 16:45 21:00 21:15 23:44 Temp 99.2 Pulse 66 64 Resp 14 16 B/P (MAP) 104/60 (75) Pulse Ox 96 96 O2 Delivery Nasal Cannula Nasal Cannula Nasal Canula Nasal Cannula Non-Rebreather O2 Flow Rate 2.00 2.00 3 2.00 FiO2 28 06/07/20 06/07/20 06/07/20 06/07/20 00:15 04:23 07:27 08:49 Temp 99.2 98.8 98.7 Pulse 66 61 61 97 Resp 16 16 20 18 B/P (MAP) 105/56 (72) 102/52 (69) 100/55 (70) Pulse Ox 96 96 95 95 O2 Delivery Nasal Canula Nasal Canula Nasal Canula Nasal Cannula Non-Rebreather Non-Rebreather O2 Flow Rate 3 3 2.00 2.00 Intake and Output 06/07/20 07:00 Intake Total 6564 ml Output Total 2160 ml Balance 4404 ml General: Alert, Oriented X3, Cooperative, No acute distress HEENT: Atraumatic, PERRLA, EOMI, Mucous membr. moist/pink, Other (glasses) Neck: Supple Lungs: Clear to auscultation, Normal air movement Heart: Regular rate, Normal S1, Normal S2 Abdomen: Normal bowel sounds, Soft, No tenderness Extremities: No clubbing, No edema, Normal pulses, Other (right leg immobilizer intact, prevenia intact. Neuros intact) Skin: No significant lesion Neuro: Normal speech, Strength at 5/5 X4 ext, Normal tone Psych/Mental Status: Mental status NL, Mood NL All Results(Lab/Rad) Laboratory Tests Test 06/05/20 20:25 06/06/20 04:45 Prothrombin Time 22.6 SEC 15.1 SEC Prothrombin Time INR (Non-Therap) 2.2 1.5 White Blood Count 8.2 10^3/uL Red Blood Count 3.92 10^6/uL Hemoglobin 11.8 g/dL Hematocrit 37.1 % Mean Corpuscular Volume 94.6 fL Mean Corpuscular Hemoglobin 30.1 pg Mean Corpuscular Hemoglobin Concent 31.8 g/dL Red Cell Distribution Width 13.2 % Platelet Count 171 10^3/uL Mean Platelet Volume 8.9 fL Sodium Level 141 mmol/L Potassium Level 4.0 mmol/L Chloride Level 106.0 mmol/L Carbon Dioxide Level 29.6 mmol/L Anion Gap 9.4 Blood Urea Nitrogen 12 mg/dL Creatinine 1.12 mg/dL Estimated GFR () 58.2 Est GFR (CKD-EPI)(Non-Afr Mosotho) 48.1 BUN/Creatinine Ratio 10.0 Glucose Level 145 mg/dL Calcium Level 8.4 mg/dL Total Bilirubin 0.7 mg/dL Aspartate Amino Transf (AST/SGOT) 36 U/L Alanine Aminotransferase (ALT/SGPT) 40 U/L Alkaline Phosphatase 91 U/L Total Protein 5.9 g/dL Albumin 3.0 g/dL Globulin 2.9 Albumin/Globulin Ratio 1.034 Current Medications Medications (Trade) Dose Ordered Sig/Renée Route PRN Reason Start Time Stop Time Status Last Admin Dose Admin Diphtheria/ Tetanus/Acell Pertussis (Adacel Vial) 0.5 ml ONCE ONCE IM 06/05/20 10:30 06/05/20 10:31 DC 06/05/20 10:29 Diphtheria/ Tetanus/Acell Pertussis (Adacel Vial) 0.5 ml STK-MED ONCE IM 06/05/20 10:27 06/05/20 10:27 DC Hydromorphone HCl (Dilaudid) 1 mg STAT STAT IV 06/05/20 11:47 06/05/20 11:50 DC 06/05/20 12:26 Hydromorphone HCl (Dilaudid) 2 mg STK-MED ONCE .ROUTE 06/05/20 11:53 06/05/20 11:54 DC Propofol (Diprivan) 200 mg STK-MED ONCE IV 06/05/20 11:58 06/05/20 11:58 DC Sodium Chloride 1,000 ml @ ud STK-MED ONCE .ROUTE 06/05/20 11:58 06/05/20 11:58 DC Cefazolin Sodium 3 gm/Sodium Chloride 100 ml @ 100 mls/hr OT ONCE IV 06/06/20 11:00 06/06/20 11:59 DC Tramadol HCl (Ultram) 50 mg STK-MED ONCE .ROUTE 06/05/20 16:54 06/05/20 16:54 DC Tramadol HCl (Ultram) 50 mg Q6HR PRN PO PAIN 4 - 6 06/05/20 17:00 06/06/20 15:57 DC 06/05/20 17:10 Hydromorphone HCl (Dilaudid) 2 mg STK-MED ONCE .ROUTE 06/05/20 17:49 06/05/20 17:49 DC Hydromorphone HCl (Dilaudid) 1 mg OT PRN IV PAIN 7 - 10 06/05/20 18:00 06/06/20 02:25 DC 06/05/20 18:04 Fentanyl Citrate (Sublimaze) 50 mcg STK-MED ONCE .ROUTE 06/05/20 18:17 06/05/20 18:17 DC Fentanyl Citrate (Sublimaze) 25 mcg OT ONCE IV 06/05/20 19:30 06/06/20 02:25 DC 06/05/20 18:45 Tramadol HCl (Ultram) 100 mg Q4HR PRN PO PAIN 4 - 6 06/05/20 20:30 06/06/20 15:58 DC 06/05/20 22:21 Diazepam (Valium) 5 mg Q6HR PRN PO MUSCLE SPASM 06/05/20 20:30 07/05/20 20:29 06/06/20 00:00 Sodium Chloride 100 ml @ ud STK-MED ONCE IV 06/05/20 21:35 06/05/20 21:35 DC Hydromorphone HCl (Dilaudid) 1 mg OT ONCE IV 06/06/20 02:30 06/06/20 02:31 DC 06/06/20 06:08 Hydromorphone HCl (Dilaudid) 2 mg STK-MED ONCE .ROUTE 06/06/20 06:07 06/06/20 06:07 DC Sodium Chloride 100 ml @ ud STK-MED ONCE IV 06/06/20 06:36 06/06/20 06:36 DC Diphenhydramine HCl (Benadryl) 25 mg OT ONCE PO 06/06/20 10:00 06/06/20 10:01 DC 06/06/20 09:49 Cefazolin Sodium (Ancef) 1 gm STK-MED ONCE .ROUTE 06/06/20 09:42 06/06/20 09:43 DC Sodium Chloride 100 ml @ ud STK-MED ONCE IV 06/06/20 09:42 06/06/20 09:43 DC Propofol (Diprivan) 200 mg STK-MED ONCE IV 06/06/20 10:55 06/06/20 10:55 DC Fentanyl Citrate (Sublimaze) 50 mcg STK-MED ONCE .ROUTE 06/06/20 10:56 06/06/20 10:57 DC Ondansetron HCl (Zofran) 4 mg STK-MED ONCE .ROUTE 06/06/20 10:57 06/06/20 10:57 DC Lidocaine HCl (Lidocaine 2% Vial) 500 mg STK-MED ONCE .ROUTE 06/06/20 10:58 06/06/20 10:58 DC Ketorolac Tromethamine (Toradol) 30 mg STK-MED ONCE .ROUTE 06/06/20 10:59 06/06/20 10:59 DC Rocuronium [place] (Rocuronium Cordova) 50 mg STK-MED ONCE IV 06/06/20 11:00 06/06/20 11:00 DC Sodium Chloride (Sodium Chloride Irr Bottle) 1,000 ml STK-MED ONCE IR 06/06/20 11:24 06/06/20 11:24 DC Sodium Chloride 250 ml @ ud STK-MED ONCE IV 06/06/20 11:24 06/06/20 11:24 DC Hetastarch/Sodium Chloride 500 ml @ ud STK-MED ONCE IV 06/06/20 12:17 06/06/20 12:17 DC Tramadol HCl (Ultram) 50 mg Q6H PRN PO PAIN 1 - 3 06/06/20 15:00 07/06/20 14:59 Tramadol HCl (Ultram) 100 mg Q6H PRN PO PAIN 4 - 6 06/06/20 15:00 07/06/20 14:59 06/06/20 15:45 Rivaroxaban (Xarelto) 10 mg Q24HRS PO 06/07/20 15:00 07/07/20 14:59 Docusate Sodium (Colace) 100 mg DAILY PO 06/07/20 09:00 07/07/20 08:59 Throat Lozenges (Cepacol Sore Throat Lozenge) 1 each PRN PRN MM SORE THROAT 06/06/20 15:00 07/06/20 14:59 Famotidine (Pepcid) 20 mg DAILY PO 06/07/20 09:00 07/07/20 08:59 Cefazolin Sodium/ Dextrose (Ancef 2 Gm/D5W 50ml) 2 gm Q8 IV 06/06/20 22:00 06/06/20 16:05 DC Acetaminophen (Tylenol) 1,000 mg Q6HR PO 06/06/20 18:00 07/06/20 17:59 06/06/20 18:09 Acetaminophen 100 ml @ ud STK-MED ONCE IV 06/06/20 15:03 06/06/20 15:03 DC Acetaminophen (Ofirmev) 1,000 mg OT ONCE IV 06/06/20 15:00 06/06/20 15:37 DC 06/06/20 15:08 Tramadol HCl (Ultram) 50 mg STK-MED ONCE .ROUTE 06/06/20 15:42 06/06/20 15:42 DC Tramadol HCl (Ultram) 50 mg STK-MED ONCE .ROUTE 06/06/20 15:42 06/06/20 15:43 DC Cefazolin Sodium/ Dextrose 50 ml @ 50 mls/hr Q8H IV 06/06/20 19:00 06/07/20 11:59 06/06/20 18:11 Course Sepsis Screening Results: Posi: POSITIVE Sepsis Qualifier/Stage: SEPSIS RISK Duration or Total Time Spent w: 60 min Vitals & review Data Vital Sign - Last 24 Hours 06/05/20 06/05/20 06/05/20 06/06/20 19:57 23:21 23:24 00:05 Temp 98.6 99.4 Pulse 64 64 65 Resp 18 18 18 B/P (MAP) 102/65 (77) 120/74 (89) Pulse Ox 95 96 95 O2 Delivery Nasal Canula Nasal Cannula Nasal Cannula Nasal Canula O2 Flow Rate 2.00 2.00 2.00 06/06/20 06/06/20 06/06/20 06/06/20 04:53 08:03 10:00 14:24 Temp 99.4 98.4 Pulse 67 63 63 Resp 18 16 16 B/P (MAP) 97/64 (75) 100/59 (73) Pulse Ox 97 93 93 O2 Delivery Nasal Canula Nasal Canula Nasal Cannula O2 Flow Rate 2.00 2.00 10 06/06/20 06/06/20 06/06/20 06/06/20 14:24 14:35 14:45 14:55 Temp 100.8 100.8 100.4 Pulse 73 73 75 69 Resp 16 16 18 16 B/P (MAP) 127/79 (95) 128/90 (103) 107/38 (61) 115/67 (83) Pulse Ox 98 98 99 O2 Delivery Non-Rebreather Non-Rebreather Non-Rebreather Non-Rebreather O2 Flow Rate 10 10 10 10 06/06/20 06/06/20 06/06/20 06/06/20 15:05 15:15 15:25 15:35 Pulse 68 71 67 66 Resp 16 14 16 16 B/P (MAP) 123/79 (94) 120/75 (90) 135/98 (110) 126/79 (95) Pulse Ox 99 100 94 95 O2 Delivery Nasal Canula Nasal Canula Nasal Canula Nasal Canula Non-Rebreather Non-Rebreather O2 Flow Rate 3 3 3 3 06/06/20 06/06/20 06/06/20 15:45 15:55 16:45 Temp 99.9 Pulse 66 66 Resp 16 16 B/P (MAP) 122/76 (91) 120/80 (93) Pulse Ox 97 95 O2 Delivery Nasal Canula Nasal Canula Nasal Cannula Non-Rebreather O2 Flow Rate 3 3 2.00 Intake and Output 06/06/20 07:00 Intake Total 1966 ml Output Total 450 ml Balance 1516 ml Laboratory Tests Test 06/05/20 10:43 06/05/20 18:00 06/05/20 20:25 06/06/20 04:45 White Blood Count 9.9 10^3/uL 8.2 10^3/uL Red Blood Count 4.93 10^6/uL 3.92 10^6/uL Hemoglobin 14.9 g/dL 11.8 g/dL Hematocrit 45.9 % 37.1 % Mean Corpuscular Volume 93.1 fL 94.6 fL Mean Corpuscular Hemoglobin 30.2 pg 30.1 pg Mean Corpuscular Hemoglobin Concent 32.5 g/dL 31.8 g/dL Red Cell Distribution Width 13.2 % 13.2 % Platelet Count 208 10^3/uL 171 10^3/uL Mean Platelet Volume 8.9 fL 8.9 fL Neutrophils (%) (Auto) 80.7 % Lymphocytes (%) (Auto) 14.3 % Monocytes (%) (Auto) 4.4 % Neutrophils # (Auto) 8.0 10^3/uL Lymphocytes # (Auto) 1.41 10^3/uL1 Monocytes # (Auto) 0.4 10^3/uL Absolute Immature Granulocyte (auto 0.03 10^3 u/L Absolute Eosinophils (auto) 0.0 10^3/uL Immature Granulocytes % 0.30 % Eosinophils % 0.2 % Basophils % 0.1 % Basophils # 0.0 10^3/uL Prothrombin Time 27.0 SEC 22.6 SEC 15.1 SEC Prothrombin Time INR (Non-Therap) 2.7 2.2 1.5 Activated Partial Thromboplast Time 26.9 SEC Sodium Level 141 mmol/L 141 mmol/L Potassium Level 4.3 mmol/L 4.0 mmol/L Chloride Level 105.0 mmol/L 106.0 mmol/L Carbon Dioxide Level 27.2 mmol/L 29.6 mmol/L Anion Gap 13.1 9.4 Blood Urea Nitrogen 14 mg/dL 12 mg/dL Creatinine 1.20 mg/dL 1.12 mg/dL Estimated GFR () 53.7 58.2 Est GFR (CKD-EPI)(Non-Afr [place]oth[place]) 44.4 48.1 BUN/Creatinine Ratio 11.0 10.0 Glucose Level 134 mg/dL 145 mg/dL Calcium Level 9.1 mg/dL 8.4 mg/dL Total Bilirubin 0.5 mg/dL 0.7 mg/dL Aspartate Amino Transf (AST/SGOT) 13 U/L 36 U/L Alanine Aminotransferase (ALT/SGPT) 19 U/L 40 U/L Alkaline Phosphatase 91 U/L 91 U/L Total Protein 7.1 g/dL 5.9 g/dL Albumin 3.7 g/dL 3.0 g/dL Globulin 3.4 2.9 Albumin/Globulin Ratio 1.088 1.034 Urine Collection Type UNKNOWN Urine Color YELLOW Urine Appearance CLEAR Urine Bilirubin NEGATIVE Urine Ketones NEGATIVE Urine Specific [place] >1.030 Urine pH 5.0 Urine Protein NEGATIVE Urine Urobilinogen NORMAL Urine Nitrate NEGATIVE Urine Leukocyte Esterase NEGATIVE Urine Glucose (Auto)(UA) NEGATIVE Urine Blood MODERATE Urine RBC 2-5 RBC/HPF Urine WBC 0-2 WBC/HPF Urine Squamous Epithelial Cells FEW #/HPF Urine Bacteria NONE SEEN Current Medications Medications (Trade) Dose Ordered Sig/Renée PRN Reason Start Time Stop Time Status Last Admin Acetaminophen (Tylenol) 1,000 mg Q6HR 06/06/20 18:00 07/06/20 17:59 06/06/20 18:09 Cefazolin Sodium/ Dextrose 50 ml @ 50 mls/hr Q8H 06/06/20 19:00 06/07/20 11:59 06/06/20 18:11 Diazepam (Valium) 5 mg Q6HR PRN MUSCLE SPASM 06/05/20 20:30 07/05/20 20:29 06/06/20 00:00 Docusate Sodium (Colace) 100 mg DAILY 06/07/20 09:00 07/07/20 08:59 Famotidine (Pepcid) 20 mg DAILY 06/07/20 09:00 07/07/20 08:59 Rivaroxaban (Xarelto) 10 mg Q24HRS 06/07/20 15:00 07/07/20 14:59 Throat Lozenges (Cepacol Sore Throat Lozenge) 1 each PRN PRN SORE THROAT 06/06/20 15:00 07/06/20 14:59 Tramadol HCl (Ultram) 50 mg Q6H PRN PAIN 1 - 3 06/06/20 15:00 07/06/20 14:59 Tramadol HCl (Ultram) 100 mg Q6H PRN PAIN 4 - 6 06/06/20 15:00 07/06/20 14:59 06/06/20 15:45 LEVEL 1 SEPSIS INFECTION CRITE: ABX Therapy, Recent Invasive Procedure LEVEL 2-SIRS (LIST ALL THAT AP: None/Not assessed Cardiovascular Evidence: Not Assessed or None Hematologic Evidence: None/Not assessed Hepatic Evidence: None/Not assessed Metabolic Evidence: None/Not assessed Neurological Evidence: None/Not assessed Respiratory Evidence: Need for O2 to keep>90% Renal Evidence: None/Not assessed O2 Sat by Pulse Oximetry: 95 Oxygen Flow Rate: 2.00 Assessment/Plan Assessment/Plan Assessment/Plan 70 yo female with fall and R femur fx s/p ORIF with plate, chronic afib, KEVON - follow blood counts and plan to restart coumadin when no active bleeding is noted - pain control and therapy - follow clinically Plan 70 yo female with fall and R femur fx s/p ORIF with plate, chronic afib, KEVON - follow blood counts and plan to restart coumadin when no active bleeding is noted - pain control and therapy - follow clinically TYRONE BERNAL NP Jun 07, 2020 09:19
[2020-06-07] MEDS: PEPCID PO SCH (09:28)
[2020-06-07] MEDS: COLACE PO SCH (09:28)
--- NOTE | 2020-06-07 09:33 | PRM.PN ---
Subjective Subjective Date: Jun 07, 2020 Time: 09:00 Subjective Patient is postoperatively day 1. No complaints. Denies shortness of breath chest pain nausea or vomiting. Hemoglobin dropped to 8.4. As per operative record blood loss was 500 mL. Patient is off warfarin. Patient was started on Xarelto postoperatively by Ortho. VTE VTE Risk Total Score: 2 VTE Risk Score VTE Risk: Score 0-1 = Low Risk (Aggressive mobilization; early ambulation; no VTE prophylaxis required) Score 2: Moderate Risk (Intermittent/Pneumatic Compression Device OR Lovenox/Heparin/Coumadin) Score 3-4: High Risk (Intermittent/Pneumatic Compression Device AND Lovenox/Heparin/Coumadin) Score > or =5: Highest Risk (Intermittent/Pneumatic Compression Device AND Lovenox/Heparin/Coumadin) Antico:Hep/LMWH/Coum/Xarelto: Yes Mechanical device ordered: Yes Reasons not ordering prophylax: Blood coag disorder Review of Systems Constitutional: No: Fever, Chills, Sweats, Weakness, Malaise, Other Eyes: Pain (Right lower extremity pain); No: Vision change, Conjunctivae inflammation, Eyelid inflammation, Other, Redness ENT: No: Ear pain, Ear discharge, Nose pain, Nose discharge, Nose congestion, Mouth pain, Mouth swelling, Throat pain, Throat swelling, Other Respiratory: No: Cough, Dry, Shortness of breath, SOB with excertion, Wheezing, Hemoptysis, Pleuritic Pain, Sputum, Wheezing, Other Cardiovascular: No: Chest Pain, Palpitations, Orthopnea, Paroxysmal Noc. Dyspnea, Edema, Lt Headedness, Other Gastrointestinal: No: Nausea, Vomiting, Abdominal Pain, Diarrhea, Constipation, Melena, Hematochezia, Other Genitourinary: No Dysuria, No Frequency, No Incontinence, No Hematuria, No Retention, No Other Musculoskeletal: other (right leg pain) Skin: No: Rash, Lesions, Jaundice, Bruising, Other Neurological: No: Weakness, Numbness, Incoordination, Change in speech, Confusion, Seizures, Other Allergies: Coded Allergies: No Known Allergies (Unverified , 06/05/20) Scheduled Aspirin (Aspirin), 1 TAB PO DAILY, (Reported) Bupropion Hcl (Bupropion Xl), 3 TAB PO DAILY, (Reported) Buspirone Hcl (Buspirone Hcl), 1 TAB PO TID, (Reported) Citalopram Hydrobromide (Citalopram Hbr), 1 TAB PO DAILY, (Reported) Flecainide Acetate (Flecainide Acetate), 50 MG PO BID, (Reported) Oxybutynin Chloride (Oxybutynin Chloride Er), 1 TAB PO DAILY, (Reported) Spironolactone 25MG (Aldactone 25MG), 1 TAB PO DAILY, (Reported) Warfarin Sodium (Warfarin Sodium), 1.5 TAB PO -W-, (Reported) Warfarin Sodium (Warfarin Sodium), 1 TAB PO [id number], (Reported) Objective Vitals and I/O Vital Sign - Last 24 Hours 06/06/20 06/06/20 06/06/20 06/06/20 10:00 14:24 14:24 14:35 Temp 100.8 100.8 Pulse 63 73 73 Resp 16 16 16 B/P (MAP) 127/79 (95) 128/90 (103) Pulse Ox 93 98 O2 Delivery Nasal Cannula Non-Rebreather Non-Rebreather O2 Flow Rate 10 10 10 06/06/20 06/06/20 06/06/20 06/06/20 14:45 14:55 15:05 15:15 Temp 100.4 Pulse 75 69 68 71 Resp 18 16 16 14 B/P (MAP) 107/38 (61) 115/67 (83) 123/79 (94) 120/75 (90) Pulse Ox 98 99 99 100 O2 Delivery Non-Rebreather Non-Rebreather Nasal Canula Nasal Canula Non-Rebreather O2 Flow Rate 10 10 3 3 06/06/20 06/06/20 06/06/20 06/06/20 15:25 15:35 15:45 15:55 Temp 99.9 Pulse 67 66 66 66 Resp 16 16 16 16 B/P (MAP) 135/98 (110) 126/79 (95) 122/76 (91) 120/80 (93) Pulse Ox 94 95 97 95 O2 Delivery Nasal Canula Nasal Canula Nasal Canula Nasal Canula Non-Rebreather Non-Rebreather O2 Flow Rate 3 3 3 3 06/06/20 06/06/20 06/06/20 06/06/20 16:45 21:00 21:15 23:44 Temp 99.2 Pulse 66 64 Resp 14 16 B/P (MAP) 104/60 (75) Pulse Ox 96 96 O2 Delivery Nasal Cannula Nasal Cannula Nasal Canula Nasal Cannula Non-Rebreather O2 Flow Rate 2.00 2.00 3 2.00 FiO2 28 06/07/20 06/07/20 06/07/20 06/07/20 00:15 04:23 07:27 08:49 Temp 99.2 98.8 98.7 Pulse 66 61 61 97 Resp 16 16 20 18 B/P (MAP) 105/56 (72) 102/52 (69) 100/55 (70) Pulse Ox 96 96 95 95 O2 Delivery Nasal Canula Nasal Canula Nasal Canula Nasal Cannula Non-Rebreather Non-Rebreather O2 Flow Rate 3 3 2.00 2.00 Intake and Output 06/07/20 07:00 Intake Total 6564 ml Output Total 2160 ml Balance 4404 ml General: Alert, Oriented X3, Cooperative, No acute distress HEENT: Atraumatic, PERRLA, EOMI, Mucous membr. moist/pink, Other (glasses) Neck: Supple Lungs: Clear to auscultation, Normal air movement Heart: Regular rate, Normal S1, Normal S2, Other (Irregular) Abdomen: Normal bowel sounds, Soft, No tenderness Extremities: No clubbing, No edema, Normal pulses, Other (right leg immobilizer intact, prevenia intact. Neuros intact) Skin: No significant lesion Neuro: Normal speech, Strength at 5/5 X4 ext, Normal tone Psych/Mental Status: Mental status NL, Mood NL All Results(Lab/Rad) Laboratory Tests Test 06/05/20 20:25 06/06/20 04:45 Prothrombin Time 22.6 SEC 15.1 SEC Prothrombin Time INR (Non-Therap) 2.2 1.5 White Blood Count 8.2 10^3/uL Red Blood Count 3.92 10^6/uL Hemoglobin 11.8 g/dL Hematocrit 37.1 % Mean Corpuscular Volume 94.6 fL Mean Corpuscular Hemoglobin 30.1 pg Mean Corpuscular Hemoglobin Concent 31.8 g/dL Red Cell Distribution Width 13.2 % Platelet Count 171 10^3/uL Mean Platelet Volume 8.9 fL Sodium Level 141 mmol/L Potassium Level 4.0 mmol/L Chloride Level 106.0 mmol/L Carbon Dioxide Level 29.6 mmol/L Anion Gap 9.4 Blood Urea Nitrogen 12 mg/dL Creatinine 1.12 mg/dL Estimated GFR () 58.2 Est GFR (CKD-EPI)(Non-Afr [place]) 48.1 BUN/Creatinine Ratio 10.0 Glucose Level 145 mg/dL Calcium Level 8.4 mg/dL Total Bilirubin 0.7 mg/dL Aspartate Amino Transf (AST/SGOT) 36 U/L Alanine Aminotransferase (ALT/SGPT) 40 U/L Alkaline Phosphatase 91 U/L Total Protein 5.9 g/dL Albumin 3.0 g/dL Globulin 2.9 Albumin/Globulin Ratio 1.034 Current Medications Medications (Trade) Dose Ordered Sig/Renée Route PRN Reason Start Time Stop Time Status Last Admin Dose Admin Diphtheria/ Tetanus/Acell Pertussis (Adacel Vial) 0.5 ml ONCE ONCE IM 06/05/20 10:30 06/05/20 10:31 DC 06/05/20 10:29 Diphtheria/ Tetanus/Acell Pertussis (Adacel Vial) 0.5 ml STK-MED ONCE IM 06/05/20 10:27 06/05/20 10:27 DC Hydromorphone HCl (Dilaudid) 1 mg STAT STAT IV 06/05/20 11:47 06/05/20 11:50 DC 06/05/20 12:26 Hydromorphone HCl (Dilaudid) 2 mg STK-MED ONCE .ROUTE 06/05/20 11:53 06/05/20 11:54 DC Propofol (Diprivan) 200 mg STK-MED ONCE IV 06/05/20 11:58 06/05/20 11:58 DC Sodium Chloride 1,000 ml @ ud STK-MED ONCE .ROUTE 06/05/20 11:58 06/05/20 11:58 DC Cefazolin Sodium 3 gm/Sodium Chloride 100 ml @ 100 mls/hr OT ONCE IV 06/06/20 11:00 06/06/20 11:59 DC Tramadol HCl (Ultram) 50 mg STK-MED ONCE .ROUTE 06/05/20 16:54 06/05/20 16:54 DC Tramadol HCl (Ultram) 50 mg Q6HR PRN PO PAIN 4 - 6 06/05/20 17:00 06/06/20 15:57 DC 06/05/20 17:10 Hydromorphone HCl (Dilaudid) 2 mg STK-MED ONCE .ROUTE 06/05/20 17:49 06/05/20 17:49 DC Hydromorphone HCl (Dilaudid) 1 mg OT PRN IV PAIN 7 - 10 06/05/20 18:00 06/06/20 02:25 DC 06/05/20 18:04 Fentanyl Citrate (Sublimaze) 50 mcg STK-MED ONCE .ROUTE 06/05/20 18:17 06/05/20 18:17 DC Fentanyl Citrate (Sublimaze) 25 mcg OT ONCE IV 06/05/20 19:30 06/06/20 02:25 DC 06/05/20 18:45 Tramadol HCl (Ultram) 100 mg Q4HR PRN PO PAIN 4 - 6 06/05/20 20:30 06/06/20 15:58 DC 06/05/20 22:21 Diazepam (Valium) 5 mg Q6HR PRN PO MUSCLE SPASM 06/05/20 20:30 07/05/20 20:29 06/06/20 00:00 Sodium Chloride 100 ml @ ud STK-MED ONCE IV 06/05/20 21:35 06/05/20 21:35 DC Hydromorphone HCl (Dilaudid) 1 mg OT ONCE IV 06/06/20 02:30 06/06/20 02:31 DC 06/06/20 06:08 Hydromorphone HCl (Dilaudid) 2 mg STK-MED ONCE .ROUTE 06/06/20 06:07 06/06/20 06:07 DC Sodium Chloride 100 ml @ ud STK-MED ONCE IV 06/06/20 06:36 06/06/20 06:36 DC Diphenhydramine HCl (Benadryl) 25 mg OT ONCE PO 06/06/20 10:00 06/06/20 10:01 DC 06/06/20 09:49 Cefazolin Sodium (Ancef) 1 gm STK-MED ONCE .ROUTE 06/06/20 09:42 06/06/20 09:43 DC Sodium Chloride 100 ml @ ud STK-MED ONCE IV 06/06/20 09:42 06/06/20 09:43 DC Propofol (Diprivan) 200 mg STK-MED ONCE IV 06/06/20 10:55 06/06/20 10:55 DC Fentanyl Citrate (Sublimaze) 50 mcg STK-MED ONCE .ROUTE 06/06/20 10:56 06/06/20 10:57 DC Ondansetron HCl (Zofran) 4 mg STK-MED ONCE .ROUTE 06/06/20 10:57 06/06/20 10:57 DC Lidocaine HCl (Lidocaine 2% Vial) 500 mg STK-MED ONCE .ROUTE 06/06/20 10:58 06/06/20 10:58 DC Ketorolac Tromethamine (Toradol) 30 mg STK-MED ONCE .ROUTE 06/06/20 10:59 06/06/20 10:59 DC Rocuronium Deloit (Rocuronium Deloit) 50 mg STK-MED ONCE IV 06/06/20 11:00 06/06/20 11:00 DC Sodium Chloride (Sodium Chloride Irr Bottle) 1,000 ml STK-MED ONCE IR 06/06/20 11:24 06/06/20 11:24 DC Sodium Chloride 250 ml @ ud STK-MED ONCE IV 06/06/20 11:24 06/06/20 11:24 DC Hetastarch/Sodium Chloride 500 ml @ ud STK-MED ONCE IV 06/06/20 12:17 06/06/20 12:17 DC Tramadol HCl (Ultram) 50 mg Q6H PRN PO PAIN 1 - 3 06/06/20 15:00 07/06/20 14:59 Tramadol HCl (Ultram) 100 mg Q6H PRN PO PAIN 4 - 6 06/06/20 15:00 07/06/20 14:59 06/06/20 15:45 Rivaroxaban (Xarelto) 10 mg Q24HRS PO 06/07/20 15:00 07/07/20 14:59 Docusate Sodium (Colace) 100 mg DAILY PO 06/07/20 09:00 07/07/20 08:59 Throat Lozenges (Cepacol Sore Throat Lozenge) 1 each PRN PRN MM SORE THROAT 06/06/20 15:00 07/06/20 14:59 Famotidine (Pepcid) 20 mg DAILY PO 06/07/20 09:00 07/07/20 08:59 Cefazolin Sodium/ Dextrose (Ancef 2 Gm/D5W 50ml) 2 gm Q8 IV 06/06/20 22:00 06/06/20 16:05 DC Acetaminophen (Tylenol) 1,000 mg Q6HR PO 06/06/20 18:00 07/06/20 17:59 06/06/20 18:09 Acetaminophen 100 ml @ ud STK-MED ONCE IV 06/06/20 15:03 06/06/20 15:03 DC Acetaminophen (Ofirmev) 1,000 mg OT ONCE IV 06/06/20 15:00 06/06/20 15:37 DC 06/06/20 15:08 Tramadol HCl (Ultram) 50 mg STK-MED ONCE .ROUTE 06/06/20 15:42 06/06/20 15:42 DC Tramadol HCl (Ultram) 50 mg STK-MED ONCE .ROUTE 06/06/20 15:42 06/06/20 15:43 DC Cefazolin Sodium/ Dextrose 50 ml @ 50 mls/hr Q8H IV 06/06/20 19:00 06/07/20 11:59 06/06/20 18:11 Assessment/Plan Assessment/Plan Assessment/Plan 70 yo female with fall and R femur fx s/p ORIF with plate, chronic afib, KEVON - follow blood counts and plan to restart coumadin when no active bleeding is noted - pain control and therapy - follow clinically Problems: (1) Femur fracture, right Status: Acute Assessment & Plan: Postoperatively. PT/OT eval and treat Pain management DVT prophylaxis patient was started on Xarelto Plan to restart the patient on warfarin When okay by Ortho. ICD Code: S72.91XA - Unspecified fracture of right femur, initial encounter for closed fracture SNOMED: 67719793, [id number] (2) Morbid obesity with BMI of 50.0-59.9, adult Status: Chronic Assessment & Plan: Patient will benefit from diet, exercise for long-term health benefits ICD Code: E66.01 - Morbid (severe) obesity due to excess calories; Z68.43 - Body mass index [BMI] 50.0-59.9, adult SNOMED: 598934256, [id number], [id number] (3) Atrial fibrillation Status: Chronic Assessment & Plan: Plan is to restart the patient on warfarin once patient stable, and okay by Ortho. ICD Code: I48.91 - Unspecified atrial fibrillation SNOMED: 12429296 (4) Apnea, sleep Status: Chronic Assessment & Plan: CPAP at night while sleeping ICD Code: G47.30 - Sleep apnea, unspecified SNOMED: 44589649 Problem Qualifiers (1) Femur fracture, right: Encounter type: initial encounter Fracture alignment: displaced NADEGE BUTLER MD Jun 07, 2020 09:33
[2020-06-07] MEDS ORDERED: NS 250ML 250 ML IV ONE (10:21)
[2020-06-07] MEDS ORDERED: ANCEF 2 GM/D5W 50ML 50 ML IV ONE (13:32)
[2020-06-07] MEDS: DILAUDID IV PRN ×2 (13:59→20:30)
[2020-06-07] MEDS: NEURONTIN PO SCH ×2 (15:57→20:30)
[2020-06-07] MEDS: XARELTO PO SCH (15:57)
[2020-06-08] VITALS (7 sets, daily range): BP systolic 94–116; BP diastolic 17–65
[2020-06-08] MEDS: ULTRAM PO PRN ×4 (02:27→23:43)
[2020-06-08] MEDS: LACTATED RINGERS 1,000 ML IV SCH ×3 (03:00→23:00)
[2020-06-08] MEDS: DILAUDID IV PRN ×2 (05:11→14:39)
[2020-06-08 05:36] LABS: MEAN CORP HGB 30.9 pg (26-34); RED CELL DISTRIBUTION WIDTH 13.9 % (11.5-14.5)
[2020-06-08 06:02] LABS: CALCIUM 8.1 mg/dL (8.4-10.5); CARBON DIOXIDE 31.1 mmol/L (20.0-32)
[2020-06-08] MEDS: TYLENOL PO SCH ×4 (06:16→23:42)
[2020-06-08] MEDS: COLACE PO SCH (09:02)
[2020-06-08] MEDS: PEPCID PO SCH (09:02)
[2020-06-08] MEDS: NEURONTIN PO SCH ×3 (09:02→21:22)
--- NOTE | 2020-06-08 09:45 | PRM.PN ---
Subjective Subjective Date: Jun 08, 2020 Time: 09:43 Subjective Pain better with Gabapentin VSS HGB 8.4 Not able to remove morfin because of immobility Cont with PT VTE VTE Risk Total Score: 2 VTE Risk Score VTE Risk: Score 0-1 = Low Risk (Aggressive mobilization; early ambulation; no VTE prophylaxis required) Score 2: Moderate Risk (Intermittent/Pneumatic Compression Device OR Lovenox/Heparin/Coumadin) Score 3-4: High Risk (Intermittent/Pneumatic Compression Device AND Lovenox/Heparin/Coumadin) Score > or =5: Highest Risk (Intermittent/Pneumatic Compression Device AND Lovenox/Heparin/Coumadin) Antico:Hep/LMWH/Coum/Xarelto: Yes Mechanical device ordered: Yes Reasons not ordering prophylax: Blood coag disorder Review of Systems Constitutional: No: Fever, Chills, Sweats, Weakness, Malaise, Other Eyes: Pain (Right lower extremity pain); No: Vision change, Conjunctivae inflammation, Eyelid inflammation, Other, Redness ENT: No: Ear pain, Ear discharge, Nose pain, Nose discharge, Nose congestion, Mouth pain, Mouth swelling, Throat pain, Throat swelling, Other Respiratory: No: Cough, Dry, Shortness of breath, SOB with excertion, Wheezing, Hemoptysis, Pleuritic Pain, Sputum, Wheezing, Other Cardiovascular: No: Chest Pain, Palpitations, Orthopnea, Paroxysmal Noc. Dyspnea, Edema, Lt Headedness, Other Gastrointestinal: No: Nausea, Vomiting, Abdominal Pain, Diarrhea, Constipation, Melena, Hematochezia, Other Genitourinary: No Dysuria, No Frequency, No Incontinence, No Hematuria, No Retention, No Other Musculoskeletal: other (right leg pain) Skin: No: Rash, Lesions, Jaundice, Bruising, Other Neurological: No: Weakness, Numbness, Incoordination, Change in speech, Confusion, Seizures, Other Allergies: Coded Allergies: No Known Allergies (Unverified , 06/05/20) Scheduled Aspirin (Aspirin), 1 TAB PO DAILY, (Reported) Bupropion Hcl (Bupropion Xl), 3 TAB PO DAILY, (Reported) Buspirone Hcl (Buspirone Hcl), 1 TAB PO TID, (Reported) Citalopram Hydrobromide (Citalopram Hbr), 1 TAB PO DAILY, (Reported) Flecainide Acetate (Flecainide Acetate), 50 MG PO BID, (Reported) Oxybutynin Chloride (Oxybutynin Chloride Er), 1 TAB PO DAILY, (Reported) Spironolactone 25MG (Aldactone 25MG), 1 TAB PO DAILY, (Reported) Warfarin Sodium (Warfarin Sodium), 1.5 TAB PO -W-, (Reported) Warfarin Sodium (Warfarin Sodium), 1 TAB PO [id number], (Reported) Objective Vitals and I/O Vital Sign - Last 24 Hours 06/07/20 06/07/20 06/07/20 06/07/20 10:35 10:39 10:45 10:50 Temp 99.8 99.9 99.6 99.9 Pulse 65 63 71 61 Resp 18 18 18 18 B/P (MAP) 104/55 106/59 114/58 113/57 06/07/20 06/07/20 06/07/20 06/07/20 14:22 14:34 20:20 20:47 Temp 99.9 98.6 Pulse 61 68 68 Resp 18 18 16 B/P (MAP) 113/57 (75) 114/59 (77) Pulse Ox 61 94 95 O2 Delivery Room Air Nasal Canula Nasal Cannula O2 Flow Rate 2.00 2.00 06/07/20 06/08/20 06/08/20 06/08/20 21:25 00:02 01:35 04:09 Temp 98.7 98.9 Pulse 65 66 Resp 18 16 B/P (MAP) 113/58 (76) 109/61 (77) Pulse Ox 94 93 O2 Delivery Nasal Cannula Nasal Canula Nasal Cannula Nasal Canula O2 Flow Rate 1.00 2.00 1.00 2.00 06/08/20 06/08/20 07:37 08:57 Temp 99.0 Pulse 63 68 Resp 18 20 B/P (MAP) 101/55 (70) Pulse Ox 96 95 O2 Delivery Nasal Canula Nasal Cannula O2 Flow Rate 2.00 2.00 FiO2 28 Intake and Output 06/08/20 07:00 Intake Total 1324 ml Output Total 1250 ml Balance 74 ml General: Alert, Oriented X3, Cooperative, No acute distress HEENT: Atraumatic, PERRLA, EOMI, Mucous membr. moist/pink, Other (glasses) Neck: Supple Lungs: Clear to auscultation, Normal air movement Heart: Regular rate, Normal S1, Normal S2, Other (Irregular) Abdomen: Normal bowel sounds, Soft, No tenderness Extremities: No clubbing, No edema, Normal pulses, Other (right leg immobilizer intact, prevenia intact. Neuros intact) Skin: No significant lesion Neuro: Normal speech, Strength at 5/5 X4 ext, Normal tone Psych/Mental Status: Mental status NL, Mood NL All Results(Lab/Rad) Laboratory Tests Test 06/05/20 20:25 06/06/20 04:45 Prothrombin Time 22.6 SEC 15.1 SEC Prothrombin Time INR (Non-Therap) 2.2 1.5 White Blood Count 8.2 10^3/uL Red Blood Count 3.92 10^6/uL Hemoglobin 11.8 g/dL Hematocrit 37.1 % Mean Corpuscular Volume 94.6 fL Mean Corpuscular Hemoglobin 30.1 pg Mean Corpuscular Hemoglobin Concent 31.8 g/dL Red Cell Distribution Width 13.2 % Platelet Count 171 10^3/uL Mean Platelet Volume 8.9 fL Sodium Level 141 mmol/L Potassium Level 4.0 mmol/L Chloride Level 106.0 mmol/L Carbon Dioxide Level 29.6 mmol/L Anion Gap 9.4 Blood Urea Nitrogen 12 mg/dL Creatinine 1.12 mg/dL Estimated GFR () 58.2 Est GFR (CKD-EPI)(Non-Afr [place]) 48.1 BUN/Creatinine Ratio 10.0 Glucose Level 145 mg/dL Calcium Level 8.4 mg/dL Total Bilirubin 0.7 mg/dL Aspartate Amino Transf (AST/SGOT) 36 U/L Alanine Aminotransferase (ALT/SGPT) 40 U/L Alkaline Phosphatase 91 U/L Total Protein 5.9 g/dL Albumin 3.0 g/dL Globulin 2.9 Albumin/Globulin Ratio 1.034 Current Medications Medications (Trade) Dose Ordered Sig/Renée Route PRN Reason Start Time Stop Time Status Last Admin Dose Admin Diphtheria/ Tetanus/Acell Pertussis (Adacel Vial) 0.5 ml ONCE ONCE IM 06/05/20 10:30 06/05/20 10:31 DC 06/05/20 10:29 Diphtheria/ Tetanus/Acell Pertussis (Adacel Vial) 0.5 ml STK-MED ONCE IM 06/05/20 10:27 06/05/20 10:27 DC Hydromorphone HCl (Dilaudid) 1 mg STAT STAT IV 06/05/20 11:47 06/05/20 11:50 DC 06/05/20 12:26 Hydromorphone HCl (Dilaudid) 2 mg STK-MED ONCE .ROUTE 06/05/20 11:53 06/05/20 11:54 DC Propofol (Diprivan) 200 mg STK-MED ONCE IV 06/05/20 11:58 06/05/20 11:58 DC Sodium Chloride 1,000 ml @ ud STK-MED ONCE .ROUTE 06/05/20 11:58 06/05/20 11:58 DC Cefazolin Sodium 3 gm/Sodium Chloride 100 ml @ 100 mls/hr OT ONCE IV 06/06/20 11:00 06/06/20 11:59 DC Tramadol HCl (Ultram) 50 mg STK-MED ONCE .ROUTE 06/05/20 16:54 06/05/20 16:54 DC Tramadol HCl (Ultram) 50 mg Q6HR PRN PO PAIN 4 - 6 06/05/20 17:00 06/06/20 15:57 DC 06/05/20 17:10 Hydromorphone HCl (Dilaudid) 2 mg STK-MED ONCE .ROUTE 06/05/20 17:49 06/05/20 17:49 DC Hydromorphone HCl (Dilaudid) 1 mg OT PRN IV PAIN 7 - 10 06/05/20 18:00 06/06/20 02:25 DC 06/05/20 18:04 Fentanyl Citrate (Sublimaze) 50 mcg STK-MED ONCE .ROUTE 06/05/20 18:17 06/05/20 18:17 DC Fentanyl Citrate (Sublimaze) 25 mcg OT ONCE IV 06/05/20 19:30 06/06/20 02:25 DC 06/05/20 18:45 Tramadol HCl (Ultram) 100 mg Q4HR PRN PO PAIN 4 - 6 06/05/20 20:30 06/06/20 15:58 DC 06/05/20 22:21 Diazepam (Valium) 5 mg Q6HR PRN PO MUSCLE SPASM 06/05/20 20:30 07/05/20 20:29 06/06/20 00:00 Sodium Chloride 100 ml @ ud STK-MED ONCE IV 06/05/20 21:35 06/05/20 21:35 DC Hydromorphone HCl (Dilaudid) 1 mg OT ONCE IV 06/06/20 02:30 06/06/20 02:31 DC 06/06/20 06:08 Hydromorphone HCl (Dilaudid) 2 mg STK-MED ONCE .ROUTE 06/06/20 06:07 06/06/20 06:07 DC Sodium Chloride 100 ml @ ud STK-MED ONCE IV 06/06/20 06:36 06/06/20 06:36 DC Diphenhydramine HCl (Benadryl) 25 mg OT ONCE PO 06/06/20 10:00 06/06/20 10:01 DC 06/06/20 09:49 Cefazolin Sodium (Ancef) 1 gm STK-MED ONCE .ROUTE 06/06/20 09:42 06/06/20 09:43 DC Sodium Chloride 100 ml @ ud STK-MED ONCE IV 06/06/20 09:42 06/06/20 09:43 DC Propofol (Diprivan) 200 mg STK-MED ONCE IV 06/06/20 10:55 06/06/20 10:55 DC Fentanyl Citrate (Sublimaze) 50 mcg STK-MED ONCE .ROUTE 06/06/20 10:56 06/06/20 10:57 DC Ondansetron HCl (Zofran) 4 mg STK-MED ONCE .ROUTE 06/06/20 10:57 06/06/20 10:57 DC Lidocaine HCl (Lidocaine 2% Vial) 500 mg STK-MED ONCE .ROUTE 06/06/20 10:58 06/06/20 10:58 DC Ketorolac Tromethamine (Toradol) 30 mg STK-MED ONCE .ROUTE 06/06/20 10:59 06/06/20 10:59 DC Rocuronium Gris[place]old (Rocuronium Griswold) 50 mg STK-MED ONCE IV 06/06/20 11:00 06/06/20 11:00 DC Sodium Chloride (Sodium Chloride Irr Bottle) 1,000 ml STK-MED ONCE IR 06/06/20 11:24 06/06/20 11:24 DC Sodium Chloride 250 ml @ ud STK-MED ONCE IV 06/06/20 11:24 06/06/20 11:24 DC Hetastarch/Sodium Chloride 500 ml @ ud STK-MED ONCE IV 06/06/20 12:17 06/06/20 12:17 DC Tramadol HCl (Ultram) 50 mg Q6H PRN PO PAIN 1 - 3 06/06/20 15:00 07/06/20 14:59 Tramadol HCl (Ultram) 100 mg Q6H PRN PO PAIN 4 - 6 06/06/20 15:00 07/06/20 14:59 06/06/20 15:45 Rivaroxaban (Xarelto) 10 mg Q24HRS PO 06/07/20 15:00 07/07/20 14:59 Docusate Sodium (Colace) 100 mg DAILY PO 06/07/20 09:00 07/07/20 08:59 Throat Lozenges (Cepacol Sore Throat Lozenge) 1 each PRN PRN MM SORE THROAT 06/06/20 15:00 07/06/20 14:59 Famotidine (Pepcid) 20 mg DAILY PO 06/07/20 09:00 07/07/20 08:59 Cefazolin Sodium/ Dextrose (Ancef 2 Gm/D5W 50ml) 2 gm Q8 IV 06/06/20 22:00 06/06/20 16:05 DC Acetaminophen (Tylenol) 1,000 mg Q6HR PO 06/06/20 18:00 07/06/20 17:59 06/06/20 18:09 Acetaminophen 100 ml @ ud STK-MED ONCE IV 06/06/20 15:03 06/06/20 15:03 DC Acetaminophen (Ofirmev) 1,000 mg OT ONCE IV 06/06/20 15:00 06/06/20 15:37 DC 06/06/20 15:08 Tramadol HCl (Ultram) 50 mg STK-MED ONCE .ROUTE 06/06/20 15:42 06/06/20 15:42 DC Tramadol HCl (Ultram) 50 mg STK-MED ONCE .ROUTE 06/06/20 15:42 06/06/20 15:43 DC Cefazolin Sodium/ Dextrose 50 ml @ 50 mls/hr Q8H IV 06/06/20 19:00 06/07/20 11:59 06/06/20 18:11 Course Sepsis Screening Results: Posi: POSITIVE Sepsis Qualifier/Stage: SEPSIS RISK Duration or Total Time Spent w: 60 min Vitals & review Data Vital Sign - Last 24 Hours 06/05/20 06/05/20 06/05/20 06/06/20 19:57 23:21 23:24 00:05 Temp 98.6 99.4 Pulse 64 64 65 Resp 18 18 18 B/P (MAP) 102/65 (77) 120/74 (89) Pulse Ox 95 96 95 O2 Delivery Nasal Canula Nasal Cannula Nasal Cannula Nasal Canula O2 Flow Rate 2.00 2.00 2.00 06/06/20 06/06/20 06/06/20 06/06/20 04:53 08:03 10:00 14:24 Temp 99.4 98.4 Pulse 67 63 63 Resp 18 16 16 B/P (MAP) 97/64 (75) 100/59 (73) Pulse Ox 97 93 93 O2 Delivery Nasal Canula Nasal Canula Nasal Cannula O2 Flow Rate 2.00 2.00 10 06/06/20 06/06/20 06/06/20 06/06/20 14:24 14:35 14:45 14:55 Temp 100.8 100.8 100.4 Pulse 73 73 75 69 Resp 16 16 18 16 B/P (MAP) 127/79 (95) 128/90 (103) 107/38 (61) 115/67 (83) Pulse Ox 98 98 99 O2 Delivery Non-Rebreather Non-Rebreather Non-Rebreather Non-Rebreather O2 Flow Rate 10 10 10 10 06/06/20 06/06/20 06/06/20 06/06/20 15:05 15:15 15:25 15:35 Pulse 68 71 67 66 Resp 16 14 16 16 B/P (MAP) 123/79 (94) 120/75 (90) 135/98 (110) 126/79 (95) Pulse Ox 99 100 94 95 O2 Delivery Nasal Canula Nasal Canula Nasal Canula Nasal Canula Non-Rebreather Non-Rebreather O2 Flow Rate 3 3 3 3 06/06/20 06/06/20 06/06/20 15:45 15:55 16:45 Temp 99.9 Pulse 66 66 Resp 16 16 B/P (MAP) 122/76 (91) 120/80 (93) Pulse Ox 97 95 O2 Delivery Nasal Canula Nasal Canula Nasal Cannula Non-Rebreather O2 Flow Rate 3 3 2.00 Intake and Output 06/06/20 07:00 Intake Total 1966 ml Output Total 450 ml Balance 1516 ml Laboratory Tests Test 06/05/20 10:43 06/05/20 18:00 06/05/20 20:25 06/06/20 04:45 White Blood Count 9.9 10^3/uL 8.2 10^3/uL Red Blood Count 4.93 10^6/uL 3.92 10^6/uL Hemoglobin 14.9 g/dL 11.8 g/dL Hematocrit 45.9 % 37.1 % Mean Corpuscular Volume 93.1 fL 94.6 fL Mean Corpuscular Hemoglobin 30.2 pg 30.1 pg Mean Corpuscular Hemoglobin Concent 32.5 g/dL 31.8 g/dL Red Cell Distribution Width 13.2 % 13.2 % Platelet Count 208 10^3/uL 171 10^3/uL Mean Platelet Volume 8.9 fL 8.9 fL Neutrophils (%) (Auto) 80.7 % Lymphocytes (%) (Auto) 14.3 % Monocytes (%) (Auto) 4.4 % Neutrophils # (Auto) 8.0 10^3/uL Lymphocytes # (Auto) 1.41 10^3/uL1 Monocytes # (Auto) 0.4 10^3/uL Absolute Immature Granulocyte (auto 0.03 10^3 u/L Absolute Eosinophils (auto) 0.0 10^3/uL Immature Granulocytes % 0.30 % Eosinophils % 0.2 % Basophils % 0.1 % Basophils # 0.0 10^3/uL Prothrombin Time 27.0 SEC 22.6 SEC 15.1 SEC Prothrombin Time INR (Non-Therap) 2.7 2.2 1.5 Activated Partial Thromboplast Time 26.9 SEC Sodium Level 141 mmol/L 141 mmol/L Potassium Level 4.3 mmol/L 4.0 mmol/L Chloride Level 105.0 mmol/L 106.0 mmol/L Carbon Dioxide Level 27.2 mmol/L 29.6 mmol/L Anion Gap 13.1 9.4 Blood Urea Nitrogen 14 mg/dL 12 mg/dL Creatinine 1.20 mg/dL 1.12 mg/dL Estimated GFR () 53.7 58.2 Est GFR (CKD-EPI)(Non-Afr [place]) 44.4 48.1 BUN/Creatinine Ratio 11.0 10.0 Glucose Level 134 mg/dL 145 mg/dL Calcium Level 9.1 mg/dL 8.4 mg/dL Total Bilirubin 0.5 mg/dL 0.7 mg/dL Aspartate Amino Transf (AST/SGOT) 13 U/L 36 U/L Alanine Aminotransferase (ALT/SGPT) 19 U/L 40 U/L Alkaline Phosphatase 91 U/L 91 U/L Total Protein 7.1 g/dL 5.9 g/dL Albumin 3.7 g/dL 3.0 g/dL Globulin 3.4 2.9 Albumin/Globulin Ratio 1.088 1.034 Urine Collection Type UNKNOWN Urine Color YELLOW Urine Appearance CLEAR Urine Bilirubin NEGATIVE Urine Ketones NEGATIVE Urine Specific [place] >1.030 Urine pH 5.0 Urine Protein NEGATIVE Urine Urobilinogen NORMAL Urine Nitrate NEGATIVE Urine Leukocyte Esterase NEGATIVE Urine Glucose (Auto)(UA) NEGATIVE Urine Blood MODERATE Urine RBC 2-5 RBC/HPF Urine WBC 0-2 WBC/HPF Urine Squamous Epithelial Cells FEW #/HPF Urine Bacteria NONE SEEN Current Medications Medications (Trade) Dose Ordered Sig/Renée PRN Reason Start Time Stop Time Status Last Admin Acetaminophen (Tylenol) 1,000 mg Q6HR 06/06/20 18:00 07/06/20 17:59 06/06/20 18:09 Cefazolin Sodium/ Dextrose 50 ml @ 50 mls/hr Q8H 06/06/20 19:00 06/07/20 11:59 06/06/20 18:11 Diazepam (Valium) 5 mg Q6HR PRN MUSCLE SPASM 06/05/20 20:30 07/05/20 20:29 06/06/20 00:00 Docusate Sodium (Colace) 100 mg DAILY 06/07/20 09:00 07/07/20 08:59 Famotidine (Pepcid) 20 mg DAILY 06/07/20 09:00 07/07/20 08:59 Rivaroxaban (Xarelto) 10 mg Q24HRS 06/07/20 15:00 07/07/20 14:59 Throat Lozenges (Cepacol Sore Throat Lozenge) 1 each PRN PRN SORE THROAT 06/06/20 15:00 07/06/20 14:59 Tramadol HCl (Ultram) 50 mg Q6H PRN PAIN 1 - 3 06/06/20 15:00 07/06/20 14:59 Tramadol HCl (Ultram) 100 mg Q6H PRN PAIN 4 - 6 06/06/20 15:00 07/06/20 14:59 06/06/20 15:45 LEVEL 1 SEPSIS INFECTION CRITE: ABX Therapy, Recent Invasive Procedure LEVEL 2-SIRS (LIST ALL THAT AP: None/Not assessed Cardiovascular Evidence: Not Assessed or None Hematologic Evidence: None/Not assessed Hepatic Evidence: None/Not assessed Metabolic Evidence: None/Not assessed Neurological Evidence: None/Not assessed Respiratory Evidence: Need for O2 to keep>90% Renal Evidence: None/Not assessed O2 Sat by Pulse Oximetry: 95 Oxygen Flow Rate: 2.00 DOMINICK WAHL MD Jun 08, 2020 09:45
--- NOTE | 2020-06-08 10:50 | PRM.PN ---
Subjective Subjective Date: Jun 08, 2020 Time: 08:00 Subjective 70-year-old female with history of fibrillation, sleep apnea will be admitted with distal femur fracture, currently patient is postoperative .warfarin has been on hold .hemoglobin dropped postoperatively and Is being monitored. Cur rently warfarin is still on hold. Post Operatively patient is on Xarelto. Patient doing okay. She said that she is somewhat disoriented from being in the hospital. She uses CPAP at home. Hemoglobin today is 8.8. VTE VTE Risk Total Score: 2 VTE Risk Score VTE Risk: Score 0-1 = Low Risk (Aggressive mobilization; early ambulation; no VTE prophylaxis required) Score 2: Moderate Risk (Intermittent/Pneumatic Compression Device OR Lovenox/Heparin/Coumadin) Score 3-4: High Risk (Intermittent/Pneumatic Compression Device AND Lovenox/Heparin/Coumadin) Score > or =5: Highest Risk (Intermittent/Pneumatic Compression Device AND Lovenox/Heparin/Coumadin) Antico:Hep/LMWH/Coum/Xarelto: Yes Mechanical device ordered: Yes Reasons not ordering prophylax: Blood coag disorder Review of Systems Constitutional: Weakness, Malaise, Other (Feels somewhat disoriented.); No: Fever, Chills, Sweats Eyes: Pain (Right lower extremity pain); No: Vision change, Conjunctivae inflammation, Eyelid inflammation, Other, Redness ENT: No: Ear pain, Ear discharge, Nose pain, Nose discharge, Nose congestion, Mouth pain, Mouth swelling, Throat pain, Throat swelling, Other Respiratory: No: Cough, Dry, Shortness of breath, SOB with excertion, Wheezing, Hemoptysis, Pleuritic Pain, Sputum, Wheezing, Other Cardiovascular: No: Chest Pain, Palpitations, Orthopnea, Paroxysmal Noc. Dyspnea, Edema, Lt Headedness, Other Gastrointestinal: No: Nausea, Vomiting, Abdominal Pain, Diarrhea, Constipation, Melena, Hematochezia, Other Genitourinary: No Dysuria, No Frequency, No Incontinence, No Hematuria, No Retention, No Other Musculoskeletal: other (right leg pain) Skin: No: Rash, Lesions, Jaundice, Bruising, Other Neurological: Confusion, Seizures, Other (Feels somewhat disoriented); No: Weakness, Numbness, Incoordination, Change in speech Allergies: Coded Allergies: No Known Allergies (Unverified , 06/05/20) Scheduled Aspirin (Aspirin), 1 TAB PO DAILY, (Reported) Bupropion Hcl (Bupropion Xl), 3 TAB PO DAILY, (Reported) Buspirone Hcl (Buspirone Hcl), 1 TAB PO TID, (Reported) Citalopram Hydrobromide (Citalopram Hbr), 1 TAB PO DAILY, (Reported) Flecainide Acetate (Flecainide Acetate), 50 MG PO BID, (Reported) Oxybutynin Chloride (Oxybutynin Chloride Er), 1 TAB PO DAILY, (Reported) Spironolactone 25MG (Aldactone 25MG), 1 TAB PO DAILY, (Reported) Warfarin Sodium (Warfarin Sodium), 1.5 TAB PO --, (Reported) Warfarin Sodium (Warfarin Sodium), 1 TAB PO [id number], (Reported) Objective Vitals and I/O Vital Sign - Last 24 Hours 06/07/20 06/07/20 06/07/20 06/07/20 10:45 10:50 14:22 14:34 Temp 99.6 99.9 99.9 Pulse 71 61 61 Resp 18 18 18 B/P (MAP) 114/58 113/57 113/57 (75) Pulse Ox 61 O2 Delivery Room Air 06/07/20 06/07/20 06/07/20 06/08/20 20:20 20:47 21:25 00:02 Temp 98.6 98.7 Pulse 68 68 65 Resp 18 16 18 B/P (MAP) 114/59 (77) 113/58 (76) Pulse Ox 94 95 94 O2 Delivery Nasal Canula Nasal Cannula Nasal Cannula Nasal Canula O2 Flow Rate 2.00 2.00 1.00 2.00 06/08/20 06/08/20 06/08/20 06/08/20 01:35 04:09 07:37 08:57 Temp 98.9 99.0 Pulse 66 63 68 Resp 16 18 20 B/P (MAP) 109/61 (77) 101/55 (70) Pulse Ox 93 96 95 O2 Delivery Nasal Cannula Nasal Canula Nasal Canula Nasal Cannula O2 Flow Rate 1.00 2.00 2.00 2.00 FiO2 28 Intake and Output 06/08/20 06:59 Intake Total 1324 ml Output Total 1250 ml Balance 74 ml General: Alert, Oriented X3, Cooperative, No acute distress HEENT: Atraumatic, PERRLA, EOMI, Mucous membr. moist/pink, Other (glasses) Neck: Supple Lungs: Clear to auscultation, Normal air movement Heart: Regular rate, Normal S1, Normal S2, Other (Irregular) Abdomen: Normal bowel sounds, Soft, No tenderness Extremities: No clubbing, No edema, Normal pulses, Other (right leg immobilizer intact, prevenia intact. Neuros intact) Skin: No significant lesion Neuro: Normal speech, Strength at 5/5 X4 ext, Normal tone Psych/Mental Status: Mental status NL, Mood NL All Results(Lab/Rad) Laboratory Tests Test 06/05/20 20:25 06/06/20 04:45 Prothrombin Time 22.6 SEC 15.1 SEC Prothrombin Time INR (Non-Therap) 2.2 1.5 White Blood Count 8.2 10^3/uL Red Blood Count 3.92 10^6/uL Hemoglobin 11.8 g/dL Hematocrit 37.1 % Mean Corpuscular Volume 94.6 fL Mean Corpuscular Hemoglobin 30.1 pg Mean Corpuscular Hemoglobin Concent 31.8 g/dL Red Cell Distribution Width 13.2 % Platelet Count 171 10^3/uL Mean Platelet Volume 8.9 fL Sodium Level 141 mmol/L Potassium Level 4.0 mmol/L Chloride Level 106.0 mmol/L Carbon Dioxide Level 29.6 mmol/L Anion Gap 9.4 Blood Urea Nitrogen 12 mg/dL Creatinine 1.12 mg/dL Estimated GFR () 58.2 Est GFR (CKD-EPI)(Non-Afr Liberian) 48.1 BUN/Creatinine Ratio 10.0 Glucose Level 145 mg/dL Calcium Level 8.4 mg/dL Total Bilirubin 0.7 mg/dL Aspartate Amino Transf (AST/SGOT) 36 U/L Alanine Aminotransferase (ALT/SGPT) 40 U/L Alkaline Phosphatase 91 U/L Total Protein 5.9 g/dL Albumin 3.0 g/dL Globulin 2.9 Albumin/Globulin Ratio 1.034 Current Medications Medications (Trade) Dose Ordered Sig/Renée Route PRN Reason Start Time Stop Time Status Last Admin Dose Admin Diphtheria/ Tetanus/Acell Pertussis (Adacel Vial) 0.5 ml ONCE ONCE IM 06/05/20 10:30 06/05/20 10:31 DC 06/05/20 10:29 Diphtheria/ Tetanus/Acell Pertussis (Adacel Vial) 0.5 ml STK-MED ONCE IM 06/05/20 10:27 06/05/20 10:27 DC Hydromorphone HCl (Dilaudid) 1 mg STAT STAT IV 06/05/20 11:47 06/05/20 11:50 DC 06/05/20 12:26 Hydromorphone HCl (Dilaudid) 2 mg STK-MED ONCE .ROUTE 06/05/20 11:53 06/05/20 11:54 DC Propofol (Diprivan) 200 mg STK-MED ONCE IV 06/05/20 11:58 06/05/20 11:58 DC Sodium Chloride 1,000 ml @ ud STK-MED ONCE .ROUTE 06/05/20 11:58 06/05/20 11:58 DC Cefazolin Sodium 3 gm/Sodium Chloride 100 ml @ 100 mls/hr OT ONCE IV 06/06/20 11:00 06/06/20 11:59 DC Tramadol HCl (Ultram) 50 mg STK-MED ONCE .ROUTE 06/05/20 16:54 06/05/20 16:54 DC Tramadol HCl (Ultram) 50 mg Q6HR PRN PO PAIN 4 - 6 06/05/20 17:00 06/06/20 15:57 DC 06/05/20 17:10 Hydromorphone HCl (Dilaudid) 2 mg STK-MED ONCE .ROUTE 06/05/20 17:49 06/05/20 17:49 DC Hydromorphone HCl (Dilaudid) 1 mg OT PRN IV PAIN 7 - 10 06/05/20 18:00 06/06/20 02:25 DC 06/05/20 18:04 Fentanyl Citrate (Sublimaze) 50 mcg STK-MED ONCE .ROUTE 06/05/20 18:17 06/05/20 18:17 DC Fentanyl Citrate (Sublimaze) 25 mcg OT ONCE IV 06/05/20 19:30 06/06/20 02:25 DC 06/05/20 18:45 Tramadol HCl (Ultram) 100 mg Q4HR PRN PO PAIN 4 - 6 06/05/20 20:30 06/06/20 15:58 DC 06/05/20 22:21 Diazepam (Valium) 5 mg Q6HR PRN PO MUSCLE SPASM 06/05/20 20:30 07/05/20 20:29 06/06/20 00:00 Sodium Chloride 100 ml @ ud STK-MED ONCE IV 06/05/20 21:35 06/05/20 21:35 DC Hydromorphone HCl (Dilaudid) 1 mg OT ONCE IV 06/06/20 02:30 06/06/20 02:31 DC 06/06/20 06:08 Hydromorphone HCl (Dilaudid) 2 mg STK-MED ONCE .ROUTE 06/06/20 06:07 06/06/20 06:07 DC Sodium Chloride 100 ml @ ud STK-MED ONCE IV 06/06/20 06:36 06/06/20 06:36 DC Diphenhydramine HCl (Benadryl) 25 mg OT ONCE PO 06/06/20 10:00 06/06/20 10:01 DC 06/06/20 09:49 Cefazolin Sodium (Ancef) 1 gm STK-MED ONCE .ROUTE 06/06/20 09:42 06/06/20 09:43 DC Sodium Chloride 100 ml @ ud STK-MED ONCE IV 06/06/20 09:42 06/06/20 09:43 DC Propofol (Diprivan) 200 mg STK-MED ONCE IV 06/06/20 10:55 06/06/20 10:55 DC Fentanyl Citrate (Sublimaze) 50 mcg STK-MED ONCE .ROUTE 06/06/20 10:56 06/06/20 10:57 DC Ondansetron HCl (Zofran) 4 mg STK-MED ONCE .ROUTE 06/06/20 10:57 06/06/20 10:57 DC Lidocaine HCl (Lidocaine 2% Vial) 500 mg STK-MED ONCE .ROUTE 06/06/20 10:58 06/06/20 10:58 DC Ketorolac Tromethamine (Toradol) 30 mg STK-MED ONCE .ROUTE 06/06/20 10:59 06/06/20 10:59 DC Rocuronium [place] (Rocuronium [place]) 50 mg STK-MED ONCE IV 06/06/20 11:00 06/06/20 11:00 DC Sodium Chloride (Sodium Chloride Irr Bottle) 1,000 ml STK-MED ONCE IR 06/06/20 11:24 06/06/20 11:24 DC Sodium Chloride 250 ml @ ud STK-MED ONCE IV 06/06/20 11:24 06/06/20 11:24 DC Hetastarch/Sodium Chloride 500 ml @ ud STK-MED ONCE IV 06/06/20 12:17 06/06/20 12:17 DC Tramadol HCl (Ultram) 50 mg Q6H PRN PO PAIN 1 - 3 06/06/20 15:00 07/06/20 14:59 Tramadol HCl (Ultram) 100 mg Q6H PRN PO PAIN 4 - 6 06/06/20 15:00 07/06/20 14:59 06/06/20 15:45 Rivaroxaban (Xarelto) 10 mg Q24HRS PO 06/07/20 15:00 07/07/20 14:59 Docusate Sodium (Colace) 100 mg DAILY PO 06/07/20 09:00 07/07/20 08:59 Throat Lozenges (Cepacol Sore Throat Lozenge) 1 each PRN PRN MM SORE THROAT 06/06/20 15:00 07/06/20 14:59 Famotidine (Pepcid) 20 mg DAILY PO 06/07/20 09:00 07/07/20 08:59 Cefazolin Sodium/ Dextrose (Ancef 2 Gm/D5W 50ml) 2 gm Q8 IV 06/06/20 22:00 06/06/20 16:05 DC Acetaminophen (Tylenol) 1,000 mg Q6HR PO 06/06/20 18:00 07/06/20 17:59 06/06/20 18:09 Acetaminophen 100 ml @ ud STK-MED ONCE IV 06/06/20 15:03 06/06/20 15:03 DC Acetaminophen (Ofirmev) 1,000 mg OT ONCE IV 06/06/20 15:00 06/06/20 15:37 DC 06/06/20 15:08 Tramadol HCl (Ultram) 50 mg STK-MED ONCE .ROUTE 06/06/20 15:42 06/06/20 15:42 DC Tramadol HCl (Ultram) 50 mg STK-MED ONCE .ROUTE 06/06/20 15:42 06/06/20 15:43 DC Cefazolin Sodium/ Dextrose 50 ml @ 50 mls/hr Q8H IV 06/06/20 19:00 06/07/20 11:59 06/06/20 18:11 Course Sepsis Screening Results: Posi: POSITIVE Sepsis Qualifier/Stage: SEPSIS RISK Duration or Total Time Spent w: 60 min Vitals & review Data Vital Sign - Last 24 Hours 06/05/20 06/05/20 06/05/20 06/06/20 19:57 23:21 23:24 00:05 Temp 98.6 99.4 Pulse 64 64 65 Resp 18 18 18 B/P (MAP) 102/65 (77) 120/74 (89) Pulse Ox 95 96 95 O2 Delivery Nasal Canula Nasal Cannula Nasal Cannula Nasal Canula O2 Flow Rate 2.00 2.00 2.00 06/06/20 06/06/20 06/06/20 06/06/20 04:53 08:03 10:00 14:24 Temp 99.4 98.4 Pulse 67 63 63 Resp 18 16 16 B/P (MAP) 97/64 (75) 100/59 (73) Pulse Ox 97 93 93 O2 Delivery Nasal Canula Nasal Canula Nasal Cannula O2 Flow Rate 2.00 2.00 10 06/06/20 06/06/20 06/06/20 06/06/20 14:24 14:35 14:45 14:55 Temp 100.8 100.8 100.4 Pulse 73 73 75 69 Resp 16 16 18 16 B/P (MAP) 127/79 (95) 128/90 (103) 107/38 (61) 115/67 (83) Pulse Ox 98 98 99 O2 Delivery Non-Rebreather Non-Rebreather Non-Rebreather Non-Rebreather O2 Flow Rate 10 10 10 10 06/06/20 06/06/20 06/06/20 06/06/20 15:05 15:15 15:25 15:35 Pulse 68 71 67 66 Resp 16 14 16 16 B/P (MAP) 123/79 (94) 120/75 (90) 135/98 (110) 126/79 (95) Pulse Ox 99 100 94 95 O2 Delivery Nasal Canula Nasal Canula Nasal Canula Nasal Canula Non-Rebreather Non-Rebreather O2 Flow Rate 3 3 3 3 306/06/20 06/06/20 15:45 15:55 16:45 Temp 99.9 Pulse 66 66 Resp 16 16 B/P (MAP) 122/76 (91) 120/80 (93) Pulse Ox 97 95 O2 Delivery Nasal Canula Nasal Canula Nasal Cannula Non-Rebreather O2 Flow Rate 3 3 2.00 Intake and Output 06/06/20 07:00 Intake Total 1966 ml Output Total 450 ml Balance 1516 ml Laboratory Tests Test 06/05/20 10:43 06/05/20 18:00 06/05/20 20:25 06/06/20 04:45 White Blood Count 9.9 10^3/uL 8.2 10^3/uL Red Blood Count 4.93 10^6/uL 3.92 10^6/uL Hemoglobin 14.9 g/dL 11.8 g/dL Hematocrit 45.9 % 37.1 % Mean Corpuscular Volume 93.1 fL 94.6 fL Mean Corpuscular Hemoglobin 30.2 pg 30.1 pg Mean Corpuscular Hemoglobin Concent 32.5 g/dL 31.8 g/dL Red Cell Distribution Width 13.2 % 13.2 % Platelet Count 208 10^3/uL 171 10^3/uL Mean Platelet Volume 8.9 fL 8.9 fL Neutrophils (%) (Auto) 80.7 % Lymphocytes (%) (Auto) 14.3 % Monocytes (%) (Auto) 4.4 % Neutrophils # (Auto) 8.0 10^3/uL Lymphocytes # (Auto) 1.41 10^3/uL1 Monocytes # (Auto) 0.4 10^3/uL Absolute Immature Granulocyte (auto 0.03 10^3 u/L Absolute Eosinophils (auto) 0.0 10^3/uL Immature Granulocytes % 0.30 % Eosinophils % 0.2 % Basophils % 0.1 % Basophils # 0.0 10^3/uL Prothrombin Time 27.0 SEC 22.6 SEC 15.1 SEC Prothrombin Time INR (Non-Therap) 2.7 2.2 1.5 Activated Partial Thromboplast Time 26.9 SEC Sodium Level 141 mmol/L 141 mmol/L Potassium Level 4.3 mmol/L 4.0 mmol/L Chloride Level 105.0 mmol/L 106.0 mmol/L Carbon Dioxide Level 27.2 mmol/L 29.6 mmol/L Anion Gap 13.1 9.4 Blood Urea Nitrogen 14 mg/dL 12 mg/dL Creatinine 1.20 mg/dL 1.12 mg/dL Estimated GFR () 53.7 58.2 Est GFR (CKD-EPI)(Non-Afr [place]ian) 44.4 48.1 BUN/Creatinine Ratio 11.0 10.0 Glucose Level 134 mg/dL 145 mg/dL Calcium Level 9.1 mg/dL 8.4 mg/dL Total Bilirubin 0.5 mg/dL 0.7 mg/dL Aspartate Amino Transf (AST/SGOT) 13 U/L 36 U/L Alanine Aminotransferase (ALT/SGPT) 19 U/L 40 U/L Alkaline Phosphatase 91 U/L 91 U/L Total Protein 7.1 g/dL 5.9 g/dL Albumin 3.7 g/dL 3.0 g/dL Globulin 3.4 2.9 Albumin/Globulin Ratio 1.088 1.034 Urine Collection Type UNKNOWN Urine Color YELLOW Urine Appearance CLEAR Urine Bilirubin NEGATIVE Urine Ketones NEGATIVE Urine Specific [place] >1.030 Urine pH 5.0 Urine Protein NEGATIVE Urine Urobilinogen NORMAL Urine Nitrate NEGATIVE Urine Leukocyte Esterase NEGATIVE Urine Glucose (Auto)(UA) NEGATIVE Urine Blood MODERATE Urine RBC 2-5 RBC/HPF Urine WBC 0-2 WBC/HPF Urine Squamous Epithelial Cells FEW #/HPF Urine Bacteria NONE SEEN Current Medications Medications (Trade) Dose Ordered Sig/Renée PRN Reason Start Time Stop Time Status Last Admin Acetaminophen (Tylenol) 1,000 mg Q6HR 06/06/20 18:00 07/06/20 17:59 06/06/20 18:09 Cefazolin Sodium/ Dextrose 50 ml @ 50 mls/hr Q8H 06/06/20 19:00 06/07/20 11:59 06/06/20 18:11 Diazepam (Valium) 5 mg Q6HR PRN MUSCLE SPASM 06/05/20 20:30 07/05/20 20:29 06/06/20 00:00 Docusate Sodium (Colace) 100 mg DAILY 06/07/20 09:00 07/07/20 08:59 Famotidine (Pepcid) 20 mg DAILY 06/07/20 09:00 07/07/20 08:59 Rivaroxaban (Xarelto) 10 mg Q24HRS 06/07/20 15:00 07/07/20 14:59 Throat Lozenges (Cepacol Sore Throat Lozenge) 1 each PRN PRN SORE THROAT 06/06/20 15:00 07/06/20 14:59 Tramadol HCl (Ultram) 50 mg Q6H PRN PAIN 1 - 3 06/06/20 15:00 07/06/20 14:59 Tramadol HCl (Ultram) 100 mg Q6H PRN PAIN 4 - 6 06/06/20 15:00 07/06/20 14:59 06/06/20 15:45 LEVEL 1 SEPSIS INFECTION CRITE: ABX Therapy, Recent Invasive Procedure LEVEL 2-SIRS (LIST ALL THAT AP: None/Not assessed Cardiovascular Evidence: Not Assessed or None Hematologic Evidence: None/Not assessed Hepatic Evidence: None/Not assessed Metabolic Evidence: None/Not assessed Neurological Evidence: None/Not assessed Respiratory Evidence: Need for O2 to keep>90% Renal Evidence: None/Not assessed O2 Sat by Pulse Oximetry: 95 Oxygen Flow Rate: 2.00 Assessment/Plan Assessment/Plan Assessment/Plan 70-year-old female with history of fibrillation, sleep apnea will be admitted with distal femur fracture, currently patient is postoperative .warfarin has been on hold .hemoglobin dropped postoperatively and Is being monitored. Currently warfarin is still on hold. Post Operatively patient is on Xarelto. Patient doing okay. She said that she is somewhat disoriented from being in the hospital. She uses CPAP at home. Hemoglobin today is 8.8. Problems: (1) Fracture, femur Status: Acute Assessment & Plan: Currently patient is postoperatively. Pain management as per Ortho. PT/OT eval and treat. Management as per orthopedics. ICD Code: S72.90XA - Unspecified fracture of unspecified femur, initial encounter for closed fracture SNOMED: 17720741 (2) Atrial fibrillation Status: Chronic Assessment & Plan: Rate is controlled. Plan is to restart warfarin once no signs of active bleed. ICD Code: I48.91 - Unspecified atrial fibrillation SNOMED: 97799650 (3) Apnea, sleep Status: Chronic Assessment & Plan: Place the patient on CPAP 12 centimeters of water. ICD Code: G47.30 - Sleep apnea, unspecified SNOMED: 50202362 (4) Morbid obesity with BMI of 50.0-59.9, adult Status: Chronic Assessment & Plan: Patient would benefit from weight loss , Low-calorie diet and exercise long-term health enefits ICD Code: E66.01 - Morbid (severe) obesity due to excess calories; Z68.43 - Body mass index [BMI] 50.0-59.9, adult SNOMED: 457632596, [id number], [id number] Plan Continue to monitor hemoglobin hematocrit. Start the patient on CPAP 12 cm of water at night during sleep. To restart warfarin once no signs of active bleed. PT/OT eval and treat GI and DVT prophylaxis Problem Qualifiers (1) Fracture, femur: Encounter type: initial encounter Femur location: shaft Fracture type: closed Fracture morphology: transverse Fracture alignment: displaced Laterality: right Qualified Codes: S72.321A - Displaced transverse fracture of shaft of right femur, initial encounter for closed fracture NADEGE BUTLER MD Jun 08, 2020 10:50
[2020-06-08] MEDS: XARELTO PO SCH (14:59)
--- NOTE | 2020-06-08 20:05 | NUR ---
INSTRUCTED PT ON INCENTIVE SPIROMETER. ABLE TO PULL TO 1000 X 10 WITH GOOD TECHNIQUE. VOICED UNDERSTANDING OF NEED TO CONTINUE TO PERFORM THIS EVERY HOUR WHILE AWAKE X 10. VOICED UNDERSTANDING OF SAME.
[2020-06-09] VITALS (8 sets, daily range): BP systolic 88–142; BP diastolic 56–89
[2020-06-09] MEDS: VALIUM PO PRN (01:38)
--- NOTE | 2020-06-09 01:45 | NUR ---
PT REPORTED PAIN PT REPORTED PAIN OF 6 IN KNEE COULD NOT HAVE TRAMADOL FOR ANOTHER HOUR, PT BP 97/61 DID NOT WANT TO GIVE DILAUDID FOR FEAR OF DROPPING BP. HAVE PT 2.5 VALIUM AND AN ICE PACK
[2020-06-09] MEDS ORDERED: NS 250ML 250 ML IV ONE (03:00)
[2020-06-09] MEDS ORDERED: NS 500ML 500 ML IV ONE (03:02)
[2020-06-09 05:52] LABS: MEAN CORP HGB 30.5 pg (26-34); RED CELL DISTRIBUTION WIDTH 13.5 % (11.5-14.5)
[2020-06-09 05:59] LABS: CALCIUM 7.9 mg/dL (8.4-10.5); CARBON DIOXIDE 31.8 mmol/L (20.0-32)
[2020-06-09] MEDS: TYLENOL PO SCH ×3 (06:07→17:01)
[2020-06-09] MEDS: ULTRAM PO PRN ×3 (06:08→20:58)
[2020-06-09] MEDS: LACTATED RINGERS 1,000 ML IV SCH ×3 (06:23→17:49)
[2020-06-09] MEDS: PEPCID PO SCH (08:47)
[2020-06-09] MEDS: COLACE PO SCH (08:47)
[2020-06-09] MEDS: NEURONTIN PO SCH ×3 (08:47→20:58)
--- NOTE | 2020-06-09 09:11 | PRM.PN ---
Subjective Subjective Date: Jun 09, 2020 Time: 08:00 Subjective Ms. Wilson is resting comfortably this morning, Reports mild pain focal to her operative leg VTE VTE Risk Total Score: 2 VTE Risk Score VTE Risk: Score 0-1 = Low Risk (Aggressive mobilization; early ambulation; no VTE prophylaxis required) Score 2: Moderate Risk (Intermittent/Pneumatic Compression Device OR Lovenox/Heparin/Coumadin) Score 3-4: High Risk (Intermittent/Pneumatic Compression Device AND Lovenox/Heparin/Coumadin) Score > or =5: Highest Risk (Intermittent/Pneumatic Compression Device AND Lovenox/Heparin/Coumadin) Antico:Hep/LMWH/Coum/Xarelto: Yes Mechanical device ordered: Yes Reasons not ordering prophylax: Blood coag disorder Review of Systems Constitutional: No: Fever, Chills, Sweats Eyes: No: Vision change, Conjunctivae inflammation, Eyelid inflammation, Other, Redness ENT: No: Ear pain, Ear discharge, Nose pain, Nose discharge, Nose congestion, Mouth pain, Mouth swelling, Throat pain, Throat swelling Respiratory: No: Cough, Dry, Shortness of breath, SOB with excertion, Wheezing, Hemoptysis, Pleuritic Pain, Sputum, Wheezing Cardiovascular: No: Chest Pain, Palpitations, Orthopnea, Paroxysmal Noc. Dyspne a, Edema, Lt Headedness Gastrointestinal: No: Nausea, Vomiting, Abdominal Pain, Diarrhea, Constipation, Melena, Hematochezia Genitourinary: No Dysuria, No Frequency, No Incontinence, No Hematuria, No Retention Musculoskeletal: leg pain Skin: No: Rash, Lesions, Jaundice, Bruising, Other Neurological: No: Weakness, Numbness, Incoordination, Change in speech Allergies: Coded Allergies: No Known Allergies (Unverified , 06/05/20) Scheduled Aspirin (Aspirin), 1 TAB PO DAILY, (Reported) Bupropion Hcl (Bupropion Xl), 3 TAB PO DAILY, (Reported) Buspirone Hcl (Buspirone Hcl), 1 TAB PO TID, (Reported) Citalopram Hydrobromide (Citalopram Hbr), 1 TAB PO DAILY, (Reported) Flecainide Acetate (Flecainide Acetate), 50 MG PO BID, (Reported) Oxybutynin Chloride (Oxybutynin Chloride Er), 1 TAB PO DAILY, (Reported) Spironolactone 25MG (Aldactone 25MG), 1 TAB PO DAILY, (Reported) Warfarin Sodium (Warfarin Sodium), 1.5 TAB PO M-W-, (Reported) Warfarin Sodium (Warfarin Sodium), 1 TAB PO [id number], (Reported) Objective Vitals and I/O Vital Sign - Last 24 Hours 06/09/20 06/09/20 08:12 08:14 Pulse 90 Resp 18 B/P (MAP) 118/89 (99) Pulse Ox 95 O2 Delivery Nasal Canula Nasal Cannula O2 Flow Rate 2.00 2.00 General: Alert, Oriented X3, Cooperative, No acute distress HEENT: Atraumatic, PERRLA, EOMI, Mucous membr. moist/pink, Other (glasses) Neck: Supple Lungs: Clear to auscultation, Normal air movement Heart: Regular rate, Normal S1, Normal S2, Other (Irregular) Abdomen: Normal bowel sounds, Soft, No tenderness Extremities: No clubbing, No edema, Normal pulses, Other (right leg immobilizer intact, prevenia intact. Neuros intact) Skin: No significant lesion Neuro: Normal speech, Strength at 5/5 X4 ext, Normal tone Psych/Mental Status: Mental status NL, Mood NL All Results(Lab/Rad) Laboratory Tests Test 06/05/20 20:25 06/06/20 04:45 Prothrombin Time 22.6 SEC 15.1 SEC Prothrombin Time INR (Non-Therap) 2.2 1.5 White Blood Count 8.2 10^3/uL Red Blood Count 3.92 10^6/uL Hemoglobin 11.8 g/dL Hematocrit 37.1 % Mean Corpuscular Volume 94.6 fL Mean Corpuscular Hemoglobin 30.1 pg Mean Corpuscular Hemoglobin Concent 31.8 g/dL Red Cell Distribution Width 13.2 % Platelet Count 171 10^3/uL Mean Platelet Volume 8.9 fL Sodium Level 141 mmol/L Potassium Level 4.0 mmol/L Chloride Level 106.0 mmol/L Carbon Dioxide Level 29.6 mmol/L Anion Gap 9.4 Blood Urea Nitrogen 12 mg/dL Creatinine 1.12 mg/dL Estimated GFR () 58.2 Est GFR (CKD-EPI)(Non-Afr [place]) 48.1 BUN/Creatinine Ratio 10.0 Glucose Level 145 mg/dL Calcium Level 8.4 mg/dL Total Bilirubin 0.7 mg/dL Aspartate Amino Transf (AST/SGOT) 36 U/L Alanine Aminotransferase (ALT/SGPT) 40 U/L Alkaline Phosphatase 91 U/L Total Protein 5.9 g/dL Albumin 3.0 g/dL Globulin 2.9 Albumin/Globulin Ratio 1.034 Current Medications Medications (Trade) Dose Ordered Sig/Renée Route PRN Reason Start Time Stop Time Status Last Admin Dose Admin Diphtheria/ Tetanus/Acell Pertussis (Adacel Vial) 0.5 ml ONCE ONCE IM 06/05/20 10:30 06/05/20 10:31 DC 06/05/20 10:29 Diphtheria/ Tetanus/Acell Pertussis (Adacel Vial) 0.5 ml STK-MED ONCE IM 06/05/20 10:27 06/05/20 10:27 DC Hydromorphone HCl (Dilaudid) 1 mg STAT STAT IV 06/05/20 11:47 06/05/20 11:50 DC 06/05/20 12:26 Hydromorphone HCl (Dilaudid) 2 mg STK-MED ONCE .ROUTE 06/05/20 11:53 06/05/20 11:54 DC Propofol (Diprivan) 200 mg STK-MED ONCE IV 06/05/20 11:58 06/05/20 11:58 DC Sodium Chloride 1,000 ml @ ud STK-MED ONCE .ROUTE 06/05/20 11:58 06/05/20 11:58 DC Cefazolin Sodium 3 gm/Sodium Chloride 100 ml @ 100 mls/hr OT ONCE IV 06/06/20 11:00 06/06/20 11:59 DC Tramadol HCl (Ultram) 50 mg STK-MED ONCE .ROUTE 06/05/20 16:54 06/05/20 16:54 DC Tramadol HCl (Ultram) 50 mg Q6HR PRN PO PAIN 4 - 6 06/05/20 17:00 06/06/20 15:57 DC 06/05/20 17:10 Hydromorphone HCl (Dilaudid) 2 mg STK-MED ONCE .ROUTE 06/05/20 17:49 06/05/20 17:49 DC Hydromorphone HCl (Dilaudid) 1 mg OT PRN IV PAIN 7 - 10 06/05/20 18:00 06/06/20 02:25 DC 06/05/20 18:04 Fentanyl Citrate (Sublimaze) 50 mcg STK-MED ONCE .ROUTE 06/05/20 18:17 06/05/20 18:17 DC Fentanyl Citrate (Sublimaze) 25 mcg OT ONCE IV 06/05/20 19:30 06/06/20 02:25 DC 06/05/20 18:45 Tramadol HCl (Ultram) 100 mg Q4HR PRN PO PAIN 4 - 6 06/05/20 20:30 06/06/20 15:58 DC 06/05/20 22:21 Diazepam (Valium) 5 mg Q6HR PRN PO MUSCLE SPASM 06/05/20 20:30 07/05/20 20:29 06/06/20 00:00 Sodium Chloride 100 ml @ ud STK-MED ONCE IV 06/05/20 21:35 06/05/20 21:35 DC Hydromorphone HCl (Dilaudid) 1 mg OT ONCE IV 06/06/20 02:30 06/06/20 02:31 DC 06/06/20 06:08 Hydromorphone HCl (Dilaudid) 2 mg STK-MED ONCE .ROUTE 06/06/20 06:07 06/06/20 06:07 DC Sodium Chloride 100 ml @ ud STK-MED ONCE IV 06/06/20 06:36 06/06/20 06:36 DC Diphenhydramine HCl (Benadryl) 25 mg OT ONCE PO 06/06/20 10:00 06/06/20 10:01 DC 06/06/20 09:49 Cefazolin Sodium (Ancef) 1 gm STK-MED ONCE .ROUTE 06/06/20 09:42 06/06/20 09:43 DC Sodium Chloride 100 ml @ ud STK-MED ONCE IV 06/06/20 09:42 06/06/20 09:43 DC Propofol (Diprivan) 200 mg STK-MED ONCE IV 06/06/20 10:55 06/06/20 10:55 DC Fentanyl Citrate (Sublimaze) 50 mcg STK-MED ONCE .ROUTE 06/06/20 10:56 06/06/20 10:57 DC Ondansetron HCl (Zofran) 4 mg STK-MED ONCE .ROUTE 06/06/20 10:57 06/06/20 10:57 DC Lidocaine HCl (Lidocaine 2% Vial) 500 mg STK-MED ONCE .ROUTE 06/06/20 10:58 06/06/20 10:58 DC Ketorolac Tromethamine (Toradol) 30 mg STK-MED ONCE .ROUTE 06/06/20 10:59 06/06/20 10:59 DC Rocuronium [place] (Rocuronium [place]) 50 mg STK-MED ONCE IV 06/06/20 11:00 06/06/20 11:00 DC Sodium Chloride (Sodium Chloride Irr Bottle) 1,000 ml STK-MED ONCE IR 06/06/20 11:24 06/06/20 11:24 DC Sodium Chloride 250 ml @ ud STK-MED ONCE IV 06/06/20 11:24 06/06/20 11:24 DC Hetastarch/Sodium Chloride 500 ml @ ud STK-MED ONCE IV 06/06/20 12:17 06/06/20 12:17 DC Tramadol HCl (Ultram) 50 mg Q6H PRN PO PAIN 1 - 3 06/06/20 15:00 07/06/20 14:59 Tramadol HCl (Ultram) 100 mg Q6H PRN PO PAIN 4 - 6 06/06/20 15:00 07/06/20 14:59 06/06/20 15:45 Rivaroxaban (Xarelto) 10 mg Q24HRS PO 06/07/20 15:00 07/07/20 14:59 Docusate Sodium (Colace) 100 mg DAILY PO 06/07/20 09:00 07/07/20 08:59 Throat Lozenges (Cepacol Sore Throat Lozenge) 1 each PRN PRN MM SORE THROAT 06/06/20 15:00 07/06/20 14:59 Famotidine (Pepcid) 20 mg DAILY PO 06/07/20 09:00 07/07/20 08:59 Cefazolin Sodium/ Dextrose (Ancef 2 Gm/D5W 50ml) 2 gm Q8 IV 06/06/20 22:00 06/06/20 16:05 DC Acetaminophen (Tylenol) 1,000 mg Q6HR PO 06/06/20 18:00 07/06/20 17:59 06/06/20 18:09 Acetaminophen 100 ml @ ud STK-MED ONCE IV 06/06/20 15:03 06/06/20 15:03 DC Acetaminophen (Ofirmev) 1,000 mg OT ONCE IV 06/06/20 15:00 06/06/20 15:37 DC 06/06/20 15:08 Tramadol HCl (Ultram) 50 mg STK-MED ONCE .ROUTE 06/06/20 15:42 06/06/20 15:42 DC Tramadol HCl (Ultram) 50 mg STK-MED ONCE .ROUTE 06/06/20 15:42 06/06/20 15:43 DC Cefazolin Sodium/ Dextrose 50 ml @ 50 mls/hr Q8H IV 06/06/20 19:00 06/07/20 11:59 06/06/20 18:11 Course Sepsis Screening Results: Posi: POSITIVE Sepsis Qualifier/Stage: SEPSIS RISK Duration or Total Time Spent w: 60 min Vitals & review Data Vital Sign - Last 24 Hours 06/05/20 06/05/20 06/05/20 06/06/20 19:57 23:21 23:24 00:05 Temp 98.6 99.4 Pulse 64 64 65 Resp 18 18 18 B/P (MAP) 102/65 (77) 120/74 (89) Pulse Ox 95 96 95 O2 Delivery Nasal Canula Nasal Cannula Nasal Cannula Nasal Canula O2 Flow Rate 2.00 2.00 2.00 06/06/20 06/06/20 06/06/20 06/06/20 04:53 08:03 10:00 14:24 Temp 99.4 98.4 Pulse 67 63 63 Resp 18 16 16 B/P (MAP) 97/64 (75) 100/59 (73) Pulse Ox 97 93 93 O2 Delivery Nasal Canula Nasal Canula Nasal Cannula O2 Flow Rate 2.00 2.00 10 06/06/20 06/06/20 06/06/20 06/06/20 14:24 14:35 14:45 14:55 Temp 100.8 100.8 100.4 Pulse 73 73 75 69 Resp 16 16 18 16 B/P (MAP) 127/79 (95) 128/90 (103) 107/38 (61) 115/67 (83) Pulse Ox 98 98 99 O2 Delivery Non-Rebreather Non-Rebreather Non-Rebreather Non-Rebreather O2 Flow Rate 10 10 10 10 06/06/20 06/06/20 06/06/20 06/06/20 15:05 15:15 15:25 15:35 Pulse 68 71 67 66 Resp 16 14 16 16 B/P (MAP) 123/79 (94) 120/75 (90) 135/98 (110) 126/79 (95) Pulse Ox 99 100 94 95 O2 Delivery Nasal Canula Nasal Canula Nasal Canula Nasal Canula Non-Rebreather Non-Rebreather O2 Flow Rate 3 3 3 3 06/06/20 06/06/20 06/06/20 15:45 15:55 16:45 Temp 99.9 Pulse 66 66 Resp 16 16 B/P (MAP) 122/76 (91) 120/80 (93) Pulse Ox 97 95 O2 Delivery Nasal Canula Nasal Canula Nasal Cannula Non-Rebreather O2 Flow Rate 3 3 2.00 Intake and Output 06/06/20 07:00 Intake Total 1966 ml Output Total 450 ml Balance 1516 ml Laboratory Tests Test 06/05/20 10:43 06/05/20 18:00 06/05/20 20:25 06/06/20 04:45 White Blood Count 9.9 10^3/uL 8.2 10^3/uL Red Blood Count 4.93 10^6/uL 3.92 10^6/uL Hemoglobin 14.9 g/dL 11.8 g/dL Hematocrit 45.9 % 37.1 % Mean Corpuscular Volume 93.1 fL 94.6 fL Mean Corpuscular Hemoglobin 30.2 pg 30.1 pg Mean Corpuscular Hemoglobin Concent 32.5 g/dL 31.8 g/dL Red Cell Distribution Width 13.2 % 13.2 % Platelet Count 208 10^3/uL 171 10^3/uL Mean Platelet Volume 8.9 fL 8.9 fL Neutrophils (%) (Auto) 80.7 % Lymphocytes (%) (Auto) 14.3 % Monocytes (%) (Auto) 4.4 % Neutrophils # (Auto) 8.0 10^3/uL Lymphocytes # (Auto) 1.41 10^3/uL1 Monocytes # (Auto) 0.4 10^3/uL Absolute Immature Granulocyte (auto 0.03 10^3 u/L Absolute Eosinophils (auto) 0.0 10^3/uL Immature Granulocytes % 0.30 % Eosinophils % 0.2 % Basophils % 0.1 % Basophils # 0.0 10^3/uL Prothrombin Time 27.0 SEC 22.6 SEC 15.1 SEC Prothrombin Time INR (Non-Therap) 2.7 2.2 1.5 Activated Partial Thromboplast Time 26.9 SEC Sodium Level 141 mmol/L 141 mmol/L Potassium Level 4.3 mmol/L 4.0 mmol/L Chloride Level 105.0 mmol/L 106.0 mmol/L Carbon Dioxide Level 27.2 mmol/L 29.6 mmol/L Anion Gap 13.1 9.4 Blood Urea Nitrogen 14 mg/dL 12 mg/dL Creatinine 1.20 mg/dL 1.12 mg/dL Estimated GFR () 53.7 58.2 Est GFR (CKD-EPI)(Non-Afr [place]) 44.4 48.1 BUN/Creatinine Ratio 11.0 10.0 Glucose Level 134 mg/dL 145 mg/dL Calcium Level 9.1 mg/dL 8.4 mg/dL Total Bilirubin 0.5 mg/dL 0.7 mg/dL Aspartate Amino Transf (AST/SGOT) 13 U/L 36 U/L Alanine Aminotransferase (ALT/SGPT) 19 U/L 40 U/L Alkaline Phosphatase 91 U/L 91 U/L Total Protein 7.1 g/dL 5.9 g/dL Albumin 3.7 g/dL 3.0 g/dL Globulin 3.4 2.9 Albumin/Globulin Ratio 1.088 1.034 Urine Collection Type UNKNOWN Urine Color YELLOW Urine Appearance CLEAR Urine Bilirubin NEGATIVE Urine Ketones NEGATIVE Urine Specific [place] >1.030 Urine pH 5.0 Urine Protein NEGATIVE Urine Urobilinogen NORMAL Urine Nitrate NEGATIVE Urine Leukocyte Esterase NEGATIVE Urine Glucose (Auto)(UA) NEGATIVE Urine Blood MODERATE Urine RBC 2-5 RBC/HPF Urine WBC 0-2 WBC/HPF Urine Squamous Epithelial Cells FEW #/HPF Urine Bacteria NONE SEEN Current Medications Medications (Trade) Dose Ordered Sig/Renée PRN Reason Start Time Stop Time Status Last Admin Acetaminophen (Tylenol) 1,000 mg Q6HR 06/06/20 18:00 07/06/20 17:59 06/06/20 18:09 Cefazolin Sodium/ Dextrose 50 ml @ 50 mls/hr Q8H 06/06/20 19:00 06/07/20 11:59 3/25/21 18:11 Diazepam (Valium) 5 mg Q6HR PRN MUSCLE SPASM 06/05/20 20:30 07/05/20 20:29 06/06/20 00:00 Docusate Sodium (Colace) 100 mg DAILY 06/07/20 09:00 07/07/20 08:59 Famotidine (Pepcid) 20 mg DAILY 06/07/20 09:00 07/07/20 08:59 Rivaroxaban (Xarelto) 10 mg Q24HRS 06/07/20 15:00 07/07/20 14:59 Throat Lozenges (Cepacol Sore Throat Lozenge) 1 each PRN PRN SORE THROAT 06/06/20 15:00 07/06/20 14:59 Tramadol HCl (Ultram) 50 mg Q6H PRN PAIN 1 - 3 06/06/20 15:00 07/06/20 14:59 Tramadol HCl (Ultram) 100 mg Q6H PRN PAIN 4 - 6 06/06/20 15:00 07/06/20 14:59 06/06/20 15:45 LEVEL 1 SEPSIS INFECTION CRITE: ABX Therapy, Recent Invasive Procedure LEVEL 2-SIRS (LIST ALL THAT AP: None/Not assessed Cardiovascular Evidence: Not Assessed or None Hematologic Evidence: None/Not assessed Hepatic Evidence: None/Not assessed Metabolic Evidence: None/Not assessed Neurological Evidence: None/Not assessed Respiratory Evidence: Need for O2 to keep>90% Renal Evidence: None/Not assessed O2 Sat by Pulse Oximetry: 95 Oxygen Flow Rate: 2.00 Assessment/Plan Assessment/Plan Assessment/Plan Continue to monitor hemoglobin hematocrit. Start the patient on CPAP 12 cm of water at night during sleep. To restart warfarin once no signs of active bleed. PT/OT eval and treat GI and DVT prophylaxis Problems: (1) Femur fracture, right Status: Acute Assessment & Plan: s/p Operative repair, tolerated procedure well, will likely need rehab postoperatively ICD Code: S72.91XA - Unspecified fracture of right femur, initial encounter for closed fracture SNOMED: 06914693, [id number] (2) Morbid obesity with BMI of 50.0-59.9, adult Status: Chronic Assessment & Plan: Also low weight loss, though this is likely impractical until her leg heals given limited mobility ICD Code: E66.01 - Morbid (severe) obesity due to excess calories; Z68.43 - Body mass index [BMI] 50.0-59.9, adult SNOMED: 277306987, [id number], [id number] (3) Atrial fibrillation Status: Chronic Assessment & Plan: On Xarelto acutely postoperatively, needs to be transitioned back to warfarin As even with her co-pay for Xarelto is very expensive ICD Code: I48.91 - Unspecified atrial fibrillation SNOMED: 19981633 (4) Apnea, sleep Status: Chronic Assessment & Plan: CPAP at night ICD Code: G47.30 - Sleep apnea, unspecified SNOMED: [id number] Plan Continue to monitor hemoglobin hematocrit. Start the patient on CPAP 12 cm of water at night during sleep. To restart warfarin once no signs of active bleed. PT/OT eval and treat GI and DVT prophylaxis Problem Qualifiers (1) Femur fracture, right: Encounter type: initial encounter Fracture alignment: displaced GAEL SCHUMACHER MD Jun 09, 2020 09:11
--- NOTE | 2020-06-09 09:32 | PRM.PN ---
Subjective Subjective Date: Jun 09, 2020 Time: 09:31 Subjective Did not get out of bed yesterday VSS HGB 8.9 NVM+ Need to arramge transfer to Rehab tomorrow VTE VTE Risk Total Score: 2 VTE Risk Score VTE Risk: Score 0-1 = Low Risk (Aggressive mobilization; early ambulation; no VTE prophylaxis required) Score 2: Moderate Risk (Intermittent/Pneumatic Compression Device OR Lovenox/Heparin/Coumadin) Score 3-4: High Risk (Intermittent/Pneumatic Compression Device AND Lovenox/Heparin/Coumadin) Score > or =5: Highest Risk (Intermittent/Pneumatic Compression Device AND Lovenox/Heparin/Coumadin) Antico:Hep/LMWH/Coum/Xarelto: Yes Mechanical device ordered: Yes Reasons not ordering prophylax: Blood coag disorder Review of Systems Constitutional: No: Fever, Chills, Sweats Eyes: No: Vision change, Conjunctivae inflammation, Eyelid inflammation, Other, Redness ENT: No: Ear pain, Ear discharge, Nose pain, Nose discharge, Nose congestion, Mouth pain, Mouth swelling, Throat pain, Throat swelling Respiratory: No: Cough, Dry, Shortness of breath, SOB with excertion, Wheezing, Hemoptysis, Pleuritic Pain, Sputum, Wheezing Cardiovascular: No: Chest Pain, Palpitations, Orthopnea, Paroxysmal Noc. Dyspnea, Edema, Lt Headedness Gastrointestinal: No: Nausea, Vomiting, Abdominal Pain, Diarrhea, Constipation, Melena, Hematochezia Genitourinary: No Dysuria, No Frequency, No Incontinence, No Hematuria, No Retention Musculoskeletal: leg pain Skin: No: Rash, Lesions, Jaundice, Bruising, Other Neurological: No: Weakness, Numbness, Incoordination, Change in speech Allergies: Coded Allergies: No Known Allergies (Unverified , 06/05/20) Scheduled Aspirin (Aspirin), 1 TAB PO DAILY, (Reported) Bupropion Hcl (Bupropion Xl), 3 TAB PO DAILY, (Reported) Buspirone Hcl (Buspirone Hcl), 1 TAB PO TID, (Reported) Citalopram Hydrobromide (Citalopram Hbr), 1 TAB PO DAILY, (Reported) Flecainide Acetate (Flecainide Acetate), 50 MG PO BID, (Reported) Oxybutynin Chloride (Oxybutynin Chloride Er), 1 TAB PO DAILY, (Reported) Spironolactone 25MG (Aldactone 25MG), 1 TAB PO DAILY, (Reported) Warfarin Sodium (Warfarin Sodium), 1.5 TAB PO -W-, (Reported) Warfarin Sodium (Warfarin Sodium), 1 TAB PO [id number], (Reported) Objective Vitals and I/O Vital Sign - Last 24 Hours 06/08/20 06/08/20 06/08/20 06/08/20 12:09 12:10 15:05 20:15 Temp 98.6 98.9 100.2 Pulse 66 67 67 Resp 16 18 18 B/P (MAP) 108/58 (75) 111/65 (80) 116/17 (50) Pulse Ox 91 92 94 O2 Delivery Nasal Canula Nasal Cannula Nasal Canula O2 Flow Rate 1.00 1.00 1.00 06/08/20 06/08/20 06/08/20 06/09/20 20:36 20:36 23:30 01:29 Temp 99.0 Pulse 66 106 Resp 16 18 B/P (MAP) 94/65 (75) 96/61 (73) Pulse Ox 95 94 O2 Delivery CPAP Nasal Cannula Nasal Canula O2 Flow Rate 1.00 2.00 06/09/20 06/09/20 06/09/20 06/09/20 01:51 02:46 03:59 06:56 Temp 100.6 99.5 Pulse 112 102 Resp 18 18 B/P (MAP) 88/59 (69) 106/62 (77) 102/56 (71) Pulse Ox 95 97 O2 Delivery Nasal Cannula Nasal Canula Nasal Canula O2 Flow Rate 2.00 2.00 2.00 06/09/20 06/09/20 08:12 08:14 Pulse 90 Resp 18 B/P (MAP) 118/89 (99) Pulse Ox 95 O2 Delivery Nasal Canula Nasal Cannula O2 Flow Rate 2.00 2.00 Intake and Output 06/09/20 06:59 Intake Total 864 ml Output Total 1200 ml Balance -336 ml General: Alert, Oriented X3, Cooperative, No acute distress HEENT: Atraumatic, PERRLA, EOMI, Mucous membr. moist/pink, Other (glasses) Neck: Supple Lungs: Clear to auscultation, Normal air movement Heart: Regular rate, Normal S1, Normal S2, Other (Irregular) Abdomen: Normal bowel sounds, Soft, No tenderness Extremities: No clubbing, No edema, Normal pulses, Other (right leg immobilizer intact, prevenia intact. Neuros intact) Skin: No significant lesion Neuro: Normal speech, Strength at 5/5 X4 ext, Normal tone Psych/Mental Status: Mental status NL, Mood NL All Results(Lab/Rad) Laboratory Tests Test 06/05/20 20:25 06/06/20 04:45 Prothrombin Time 22.6 SEC 15.1 SEC Prothrombin Time INR (Non-Therap) 2.2 1.5 White Blood Count 8.2 10^3/uL Red Blood Count 3.92 10^6/uL Hemoglobin 11.8 g/dL Hematocrit 37.1 % Mean Corpuscular Volume 94.6 fL Mean Corpuscular Hemoglobin 30.1 pg Mean Corpuscular Hemoglobin Concent 31.8 g/dL Red Cell Distribution Width 13.2 % Platelet Count 171 10^3/uL Mean Platelet Volume 8.9 fL Sodium Level 141 mmol/L Potassium Level 4.0 mmol/L Chloride Level 106.0 mmol/L Carbon Dioxide Level 29.6 mmol/L Anion Gap 9.4 Blood Urea Nitrogen 12 mg/dL Creatinine 1.12 mg/dL Estimated GFR () 58.2 Est GFR (CKD-EPI)(Non-Afr Grenadian) 48.1 BUN/Creatinine Ratio 10.0 Glucose Level 145 mg/dL Calcium Level 8.4 mg/dL Total Bilirubin 0.7 mg/dL Aspartate Amino Transf (AST/SGOT) 36 U/L Alanine Aminotransferase (ALT/SGPT) 40 U/L Alkaline Phosphatase 91 U/L Total Protein 5.9 g/dL Albumin 3.0 g/dL Globulin 2.9 Albumin/Globulin Ratio 1.034 Current Medications Medications (Trade) Dose Ordered Sig/Renée Route PRN Reason Start Time Stop Time Status Last Admin Dose Admin Diphtheria/ Tetanus/Acell Pertussis (Adacel Vial) 0.5 ml ONCE ONCE IM 06/05/20 10:30 06/05/20 10:31 DC 06/05/20 10:29 Diphtheria/ Tetanus/Acell Pertussis (Adacel Vial) 0.5 ml STK-MED ONCE IM 06/05/20 10:27 06/05/20 10:27 DC Hydromorphone HCl (Dilaudid) 1 mg STAT STAT IV 06/05/20 11:47 06/05/20 11:50 DC 06/05/20 12:26 Hydromorphone HCl (Dilaudid) 2 mg STK-MED ONCE .ROUTE 06/05/20 11:53 06/05/20 11:54 DC Propofol (Diprivan) 200 mg STK-MED ONCE IV 06/05/20 11:58 06/05/20 11:58 DC Sodium Chloride 1,000 ml @ ud STK-MED ONCE .ROUTE 06/05/20 11:58 06/05/20 11:58 DC Cefazolin Sodium 3 gm/Sodium Chloride 100 ml @ 100 mls/hr OT ONCE IV 06/06/20 11:00 06/06/20 11:59 DC Tramadol HCl (Ultram) 50 mg STK-MED ONCE .ROUTE 06/05/20 16:54 06/05/20 16:54 DC Tramadol HCl (Ultram) 50 mg Q6HR PRN PO PAIN 4 - 6 06/05/20 17:00 06/06/20 15:57 DC 06/05/20 17:10 Hydromorphone HCl (Dilaudid) 2 mg STK-MED ONCE .ROUTE 06/05/20 17:49 06/05/20 17:49 DC Hydromorphone HCl (Dilaudid) 1 mg OT PRN IV PAIN 7 - 10 06/05/20 18:00 06/06/20 02:25 DC 06/05/20 18:04 Fentanyl Citrate (Sublimaze) 50 mcg STK-MED ONCE .ROUTE 06/05/20 18:17 06/05/20 18:17 DC Fentanyl Citrate (Sublimaze) 25 mcg OT ONCE IV 06/05/20 19:30 06/06/20 02:25 DC 06/05/20 18:45 Tramadol HCl (Ultram) 100 mg Q4HR PRN PO PAIN 4 - 6 06/05/20 20:30 06/06/20 15:58 DC 06/05/20 22:21 Diazepam (Valium) 5 mg Q6HR PRN PO MUSCLE SPASM 06/05/20 20:30 07/05/20 20:29 06/06/20 00:00 Sodium Chloride 100 ml @ ud STK-MED ONCE IV 06/05/20 21:35 06/05/20 21:35 DC Hydromorphone HCl (Dilaudid) 1 mg OT ONCE IV 06/06/20 02:30 06/06/20 02:31 DC 06/06/20 06:08 Hydromorphone HCl (Dilaudid) 2 mg STK-MED ONCE .ROUTE 06/06/20 06:07 06/06/20 06:07 DC Sodium Chloride 100 ml @ ud STK-MED ONCE IV 06/06/20 06:36 06/06/20 06:36 DC Diphenhydramine HCl (Benadryl) 25 mg OT ONCE PO 06/06/20 10:00 06/06/20 10:01 DC 06/06/20 09:49 Cefazolin Sodium (Ancef) 1 gm STK-MED ONCE .ROUTE 06/06/20 09:42 06/06/20 09:43 DC Sodium Chloride 100 ml @ ud STK-MED ONCE IV 06/06/20 09:42 06/06/20 09:43 DC Propofol (Diprivan) 200 mg STK-MED ONCE IV 06/06/20 10:55 06/06/20 10:55 DC Fentanyl Citrate (Sublimaze) 50 mcg STK-MED ONCE .ROUTE 06/06/20 10:56 06/06/20 10:57 DC Ondansetron HCl (Zofran) 4 mg STK-MED ONCE .ROUTE 06/06/20 10:57 06/06/20 10:57 DC Lidocaine HCl (Lidocaine 2% Vial) 500 mg STK-MED ONCE .ROUTE 06/06/20 10:58 06/06/20 10:58 DC Ketorolac Tromethamine (Toradol) 30 mg STK-MED ONCE .ROUTE 06/06/20 10:59 06/06/20 10:59 DC Rocuronium Savery (Rocuronium Savery) 50 mg STK-MED ONCE IV 06/06/20 11:00 06/06/20 11:00 DC Sodium Chloride (Sodium Chloride Irr Bottle) 1,000 ml STK-MED ONCE IR 06/06/20 11:24 06/06/20 11:24 DC Sodium Chloride 250 ml @ ud STK-MED ONCE IV 06/06/20 11:24 06/06/20 11:24 DC Hetastarch/Sodium Chloride 500 ml @ ud STK-MED ONCE IV 06/06/20 12:17 06/06/20 12:17 DC Tramadol HCl (Ultram) 50 mg Q6H PRN PO PAIN 1 - 3 06/06/20 15:00 07/06/20 14:59 Tramadol HCl (Ultram) 100 mg Q6H PRN PO PAIN 4 - 6 06/06/20 15:00 07/06/20 14:59 06/06/20 15:45 Rivaroxaban (Xarelto) 10 mg Q24HRS PO 06/07/20 15:00 07/07/20 14:59 Docusate Sodium (Colace) 100 mg DAILY PO 06/07/20 09:00 07/07/20 08:59 Throat Lozenges (Cepacol Sore Throat Lozenge) 1 each PRN PRN MM SORE THROAT 06/06/20 15:00 07/06/20 14:59 Famotidine (Pepcid) 20 mg DAILY PO 06/07/20 09:00 07/07/20 08:59 Cefazolin Sodium/ Dextrose (Ancef 2 Gm/D5W 50ml) 2 gm Q8 IV 06/06/20 22:00 06/06/20 16:05 DC Acetaminophen (Tylenol) 1,000 mg Q6HR PO 06/06/20 18:00 07/06/20 17:59 06/06/20 18:09 Acetaminophen 100 ml @ ud STK-MED ONCE IV 06/06/20 15:03 06/06/20 15:03 DC Acetaminophen (Ofirmev) 1,000 mg OT ONCE IV 06/06/20 15:00 06/06/20 15:37 DC 06/06/20 15:08 Tramadol HCl (Ultram) 50 mg STK-MED ONCE .ROUTE 06/06/20 15:42 06/06/20 15:42 DC Tramadol HCl (Ultram) 50 mg STK-MED ONCE .ROUTE 06/06/20 15:42 06/06/20 15:43 DC Cefazolin Sodium/ Dextrose 50 ml @ 50 mls/hr Q8H IV 06/06/20 19:00 06/07/20 11:59 06/06/20 18:11 Course Sepsis Screening Results: Posi: POSITIVE Sepsis Qualifier/Stage: SEPSIS RISK Duration or Total Time Spent w: 60 min Vitals & review Data Vital Sign - Last 24 Hours 06/05/20 06/05/20 06/05/20 06/06/20 19:57 23:21 23:24 00:05 Temp 98.6 99.4 Pulse 64 64 65 Resp 18 18 18 B/P (MAP) 102/65 (77) 120/74 (89) Pulse Ox 95 96 95 O2 Delivery Nasal Canula Nasal Cannula Nasal Cannula Nasal Canula O2 Flow Rate 2.00 2.00 2.00 06/06/20 06/06/20 06/06/20 06/06/20 04:53 08:03 10:00 14:24 Temp 99.4 98.4 Pulse 67 63 63 Resp 18 16 16 B/P (MAP) 97/64 (75) 100/59 (73) Pulse Ox 97 93 93 O2 Delivery Nasal Canula Nasal Canula Nasal Cannula O2 Flow Rate 2.00 2.00 10 06/06/20 06/06/20 06/06/20 06/06/20 14:24 14:35 14:45 14:55 Temp 100.8 100.8 100.4 Pulse 73 73 75 69 Resp 16 16 18 16 B/P (MAP) 127/79 (95) 128/90 (103) 107/38 (61) 115/67 (83) Pulse Ox 98 98 99 O2 Delivery Non-Rebreather Non-Rebreather Non-Rebreather Non-Rebreather O2 Flow Rate 10 10 10 10 06/06/20 06/06/20 06/06/20 06/06/20 15:05 15:15 15:25 15:35 Pulse 68 71 67 66 Resp 16 14 16 16 B/P (MAP) 123/79 (94) 120/75 (90) 135/98 (110) 126/79 (95) Pulse Ox 99 100 94 95 O2 Delivery Nasal Canula Nasal Canula Nasal Canula Nasal Canula Non-Rebreather Non-Rebreather O2 Flow Rate 3 3 3 3 06/06/20 06/06/20 06/06/20 15:45 15:55 16:45 Temp 99.9 Pulse 66 66 Resp 16 16 B/P (MAP) 122/76 (91) 120/80 (93) Pulse Ox 97 95 O2 Delivery Nasal Canula Nasal Canula Nasal Cannula Non-Rebreather O2 Flow Rate 3 3 2.00 Intake and Output 06/06/20 07:00 Intake Total 1966 ml Output Total 450 ml Balance 1516 ml Laboratory Tests Test 06/05/20 10:43 06/05/20 18:00 06/05/20 20:25 06/06/20 04:45 White Blood Count 9.9 10^3/uL 8.2 10^3/uL Red Blood Count 4.93 10^6/uL 3.92 10^6/uL Hemoglobin 14.9 g/dL 11.8 g/dL Hematocrit 45.9 % 37.1 % Mean Corpuscular Volume 93.1 fL 94.6 fL Mean Corpuscular Hemoglobin 30.2 pg 30.1 pg Mean Corpuscular Hemoglobin Concent 32.5 g/dL 31.8 g/dL Red Cell Distribution Width 13.2 % 13.2 % Platelet Count 208 10^3/uL 171 10^3/uL Mean Platelet Volume 8.9 fL 8.9 fL Neutrophils (%) (Auto) 80.7 % Lymphocytes (%) (Auto) 14.3 % Monocytes (%) (Auto) 4.4 % Neutrophils # (Auto) 8.0 10^3/uL Lymphocytes # (Auto) 1.41 10^3/uL1 Monocytes # (Auto) 0.4 10^3/uL Absolute Immature Granulocyte (auto 0.03 10^3 u/L Absolute Eosinophils (auto) 0.0 10^3/uL Immature Granulocytes % 0.30 % Eosinophils % 0.2 % Basophils % 0.1 % Basophils # 0.0 10^3/uL Prothrombin Time 27.0 SEC 22.6 SEC 15.1 SEC Prothrombin Time INR (Non-Therap) 2.7 2.2 1.5 Activated Partial Thromboplast Time 26.9 SEC Sodium Level 141 mmol/L 141 mmol/L Potassium Level 4.3 mmol/L 4.0 mmol/L Chloride Level 105.0 mmol/L 106.0 mmol/L Carbon Dioxide Level 27.2 mmol/L 29.6 mmol/L Anion Gap 13.1 9.4 Blood Urea Nitrogen 14 mg/dL 12 mg/dL Creatinine 1.20 mg/dL 1.12 mg/dL Estimated GFR () 53.7 58.2 Est GFR (CKD-EPI)(Non-Afr Grenadian) 44.4 48.1 BUN/Creatinine Ratio 11.0 10.0 Glucose Level 134 mg/dL 145 mg/dL Calcium Level 9.1 mg/dL 8.4 mg/dL Total Bilirubin 0.5 mg/dL 0.7 mg/dL Aspartate Amino Transf (AST/SGOT) 13 U/L 36 U/L Alanine Aminotransferase (ALT/SGPT) 19 U/L 40 U/L Alkaline Phosphatase 91 U/L 91 U/L Total Protein 7.1 g/dL 5.9 g/dL Albumin 3.7 g/dL 3.0 g/dL Globulin 3.4 2.9 Albumin/Globulin Ratio 1.088 1.034 Urine Collection Type UNKNOWN Urine Color YELLOW Urine Appearance CLEAR Urine Bilirubin NEGATIVE Urine Ketones NEGATIVE Urine Specific Ponce >1.030 Urine pH 5.0 Urine Protein NEGATIVE Urine Urobilinogen NORMAL Urine Nitrate NEGATIVE Urine Leukocyte Esterase NEGATIVE Urine Glucose (Auto)(UA) NEGATIVE Urine Blood MODERATE Urine RBC 2-5 RBC/HPF Urine WBC 0-2 WBC/HPF Urine Squamous Epithelial Cells FEW #/HPF Urine Bacteria NONE SEEN Current Medications Medications (Trade) Dose Ordered Sig/Renée PRN Reason Start Time Stop Time Status Last Admin Acetaminophen (Tylenol) 1,000 mg Q6HR 06/06/20 18:00 07/06/20 17:59 06/06/20 18:09 Cefazolin Sodium/ Dextrose 50 ml @ 50 mls/hr Q8H 06/06/20 19:00 06/07/20 11:59 06/06/20 18:11 Diazepam (Valium) 5 mg Q6HR PRN MUSCLE SPASM 06/05/20 20:30 07/05/20 20:29 06/06/20 00:00 Docusate Sodium (Colace) 100 mg DAILY 06/07/20 09:00 07/07/20 08:59 Famotidine (Pepcid) 20 mg DAILY 06/07/20 09:00 07/07/20 08:59 Rivaroxaban (Xarelto) 10 mg Q24HRS 06/07/20 15:00 07/07/20 14:59 Throat Lozenges (Cepacol Sore Throat Lozenge) 1 each PRN PRN SORE THROAT 06/06/20 15:00 07/06/20 14:59 Tramadol HCl (Ultram) 50 mg Q6H PRN PAIN 1 - 3 06/06/20 15:00 07/06/20 14:59 Tramadol HCl (Ultram) 100 mg Q6H PRN PAIN 4 - 6 06/06/20 15:00 07/06/20 14:59 06/06/20 15:45 LEVEL 1 SEPSIS INFECTION CRITE: ABX Therapy, Recent Invasive Procedure LEVEL 2-SIRS (LIST ALL THAT AP: None/Not assessed Cardiovascular Evidence: Not Assessed or None Hematologic Evidence: None/Not assessed Hepatic Evidence: None/Not assessed Metabolic Evidence: None/Not assessed Neurological Evidence: None/Not assessed Respiratory Evidence: Need for O2 to keep>90% Renal Evidence: None/Not assessed O2 Sat by Pulse Oximetry: 95 Oxygen Flow Rate: 2.00 Assessment/Plan Assessment/Plan Assessment/Plan Continue to monitor hemoglobin hematocrit. Start the patient on CPAP 12 cm of water at night during sleep. To restart warfarin once no signs of active bleed. PT/OT eval and treat GI and DVT prophylaxis Plan Continue to monitor hemoglobin hematocrit. Start the patient on CPAP 12 cm of water at night during sleep. To restart warfarin once no signs of active bleed. PT/OT eval and treat GI and DVT prophylaxis DOMINICK WAHL MD Jun 09, 2020 09:32
[2020-06-09] MEDS: XARELTO PO SCH (15:14)
[2020-06-10 00:30] VITALS: BP 114/76
[2020-06-10] MEDS: TYLENOL PO SCH ×3 (00:51→12:09)
[2020-06-10] MEDS: LACTATED RINGERS 1,000 ML IV SCH ×3 (05:00→15:00)
[2020-06-10] MEDS: ULTRAM PO PRN ×2 (05:54→09:27)
[2020-06-10 06:15] VITALS: BP 119/69
--- NOTE | 2020-06-10 07:00 | NUR ---
REPORT RECEIVED REPORT AND ASSUMED CARE OF PT.
--- NOTE | 2020-06-10 08:25 | PRM.PN ---
Subjective Subjective Date: Jun 10, 2020 Time: 07:45 Subjective Ms. Wilson is resting comfortably this morning, Reports no pain today, still has not ambulated VTE VTE Risk Total Score: 2 VTE Risk Score VTE Risk: Score 0-1 = Low Risk (Aggressive mobilization; early ambulation; no VTE prophylaxis required) Score 2: Moderate Risk (Intermittent/Pneumatic Compression Device OR Lovenox/Heparin/Coumadin) Score 3-4: High Risk (Intermittent/Pneumatic Compression Device AND Lovenox/Heparin/Coumadin) Score > or =5: Highest Risk (Intermittent/Pneumatic Compression Device AND Lovenox/Heparin/Coumadin) Antico:Hep/LMWH/Coum/Xarelto: Yes Mechanical device ordered: Yes Reasons not ordering prophylax: Blood coag disorder Review of Systems Constitutional: No: Fever, Chills, Sweats Eyes: No: Vision change, Conjunctivae inflammation, Eyelid inflammation, Other, Redness ENT: No: Ear pain, Ear discharge, Nose pain, Nose discharge, Nose congestion, Mouth pain, Mouth swelling, Throat pain, Throat swelling Respiratory: No: Cough, Dry, Shortness of breath, SOB with excertion, Wheezing, Hemoptysis, Pleuritic Pain, Sputum, Wheezing Cardiovascular: No: Chest Pain, Palpitations, Orthopnea, Paroxysmal Noc. Dysp belinda, Edema, Lt Headedness Gastrointestinal: No: Nausea, Vomiting, Abdominal Pain, Diarrhea, Constipation, Melena, Hematochezia Genitourinary: No Dysuria, No Frequency, No Incontinence, No Hematuria, No Retention Musculoskeletal: leg pain Skin: No: Rash, Lesions, Jaundice, Bruising, Other Neurological: No: Weakness, Numbness, Incoordination, Change in speech Allergies: Coded Allergies: No Known Allergies (Unverified , 06/05/20) Scheduled Aspirin (Aspirin), 1 TAB PO DAILY, (Reported) Bupropion Hcl (Bupropion Xl), 3 TAB PO DAILY, (Reported) Buspirone Hcl (Buspirone Hcl), 1 TAB PO TID, (Reported) Citalopram Hydrobromide (Citalopram Hbr), 1 TAB PO DAILY, (Reported) Flecainide Acetate (Flecainide Acetate), 50 MG PO BID, (Reported) Oxybutynin Chloride (Oxybutynin Chloride Er), 1 TAB PO DAILY, (Reported) Spironolactone 25MG (Aldactone 25MG), 1 TAB PO DAILY, (Reported) Warfarin Sodium (Warfarin Sodium), 1.5 TAB PO --, (Reported) Warfarin Sodium (Warfarin Sodium), 1 TAB PO [id number], (Reported) Objective General: Alert, Oriented X3, Cooperative, No acute distress HEENT: Atraumatic, PERRLA, EOMI, Mucous membr. moist/pink, Other (glasses) Neck: Supple Lungs: Clear to auscultation, Normal air movement Heart: Regular rate, Normal S1, Normal S2, Other (Irregular) Abdomen: Normal bowel sounds, Soft, No tenderness Extremities: No clubbing, No edema, Normal pulses, Other (right leg immobilizer intact, prevenia intact. Neuros intact) Skin: No significant lesion Neuro: Normal speech, Strength at 5/5 X4 ext, Normal tone Psych/Mental Status: Mental status NL, Mood NL All Results(Lab/Rad) Laboratory Tests Test 06/05/20 20:25 06/06/20 04:45 Prothrombin Time 22.6 SEC 15.1 SEC Prothrombin Time INR (Non-Therap) 2.2 1.5 White Blood Count 8.2 10^3/uL Red Blood Count 3.92 10^6/uL Hemoglobin 11.8 g/dL Hematocrit 37.1 % Mean Corpuscular Volume 94.6 fL Mean Corpuscular Hemoglobin 30.1 pg Mean Corpuscular Hemoglobin Concent 31.8 g/dL Red Cell Distribution Width 13.2 % Platelet Count 171 10^3/uL Mean Platelet Volume 8.9 fL Sodium Level 141 mmol/L Potassium Level 4.0 mmol/L Chloride Level 106.0 mmol/L Carbon Dioxide Level 29.6 mmol/L Anion Gap 9.4 Blood Urea Nitrogen 12 mg/dL Creatinine 1.12 mg/dL Estimated GFR () 58.2 Est GFR (CKD-EPI)(Non-Afr Togolese) 48.1 BUN/Creatinine Ratio 10.0 Glucose Level 145 mg/dL Calcium Level 8.4 mg/dL Total Bilirubin 0.7 mg/dL Aspartate Amino Transf (AST/SGOT) 36 U/L Alanine Aminotransferase (ALT/SGPT) 40 U/L Alkaline Phosphatase 91 U/L Total Protein 5.9 g/dL Albumin 3.0 g/dL Globulin 2.9 Albumin/Globulin Ratio 1.034 Current Medications Medications (Trade) Dose Ordered Sig/Renée Route PRN Reason Start Time Stop Time Status Last Admin Dose Admin Diphtheria/ Tetanus/Acell Pertussis (Adacel Vial) 0.5 ml ONCE ONCE IM 06/05/20 10:30 06/05/20 10:31 DC 06/05/20 10:29 Diphtheria/ Tetanus/Acell Pertussis (Adacel Vial) 0.5 ml STK-MED ONCE IM 06/05/20 10:27 06/05/20 10:27 DC Hydromorphone HCl (Dilaudid) 1 mg STAT STAT IV 06/05/20 11:47 06/05/20 11:50 DC 06/05/20 12:26 Hydromorphone HCl (Dilaudid) 2 mg STK-MED ONCE .ROUTE 06/05/20 11:53 06/05/20 11:54 DC Propofol (Diprivan) 200 mg STK-MED ONCE IV 06/05/20 11:58 06/05/20 11:58 DC Sodium Chloride 1,000 ml @ ud STK-MED ONCE .ROUTE 06/05/20 11:58 06/05/20 11:58 DC Cefazolin Sodium 3 gm/Sodium Chloride 100 ml @ 100 mls/hr OT ONCE IV 06/06/20 11:00 06/06/20 11:59 DC Tramadol HCl (Ultram) 50 mg STK-MED ONCE .ROUTE 06/05/20 16:54 06/05/20 16:54 DC Tramadol HCl (Ultram) 50 mg Q6HR PRN PO PAIN 4 - 6 06/05/20 17:00 06/06/20 15:57 DC 06/05/20 17:10 Hydromorphone HCl (Dilaudid) 2 mg STK-MED ONCE .ROUTE 06/05/20 17:49 06/05/20 17:49 DC Hydromorphone HCl (Dilaudid) 1 mg OT PRN IV PAIN 7 - 10 06/05/20 18:00 06/06/20 02:25 DC 06/05/20 18:04 Fentanyl Citrate (Sublimaze) 50 mcg STK-MED ONCE .ROUTE 06/05/20 18:17 06/05/20 18:17 DC Fentanyl Citrate (Sublimaze) 25 mcg OT ONCE IV 06/05/20 19:30 06/06/20 02:25 DC 06/05/20 18:45 Tramadol HCl (Ultram) 100 mg Q4HR PRN PO PAIN 4 - 6 06/05/20 20:30 06/06/20 15:58 DC 06/05/20 22:21 Diazepam (Valium) 5 mg Q6HR PRN PO MUSCLE SPASM 06/05/20 20:30 07/05/20 20:29 06/06/20 00:00 Sodium Chloride 100 ml @ ud STK-MED ONCE IV 06/05/20 21:35 06/05/20 21:35 DC Hydromorphone HCl (Dilaudid) 1 mg OT ONCE IV 06/06/20 02:30 06/06/20 02:31 DC 06/06/20 06:08 Hydromorphone HCl (Dilaudid) 2 mg STK-MED ONCE .ROUTE 06/06/20 06:07 06/06/20 06:07 DC Sodium Chloride 100 ml @ ud STK-MED ONCE IV 06/06/20 06:36 06/06/20 06:36 DC Diphenhydramine HCl (Benadryl) 25 mg OT ONCE PO 06/06/20 10:00 06/06/20 10:01 DC 06/06/20 09:49 Cefazolin Sodium (Ancef) 1 gm STK-MED ONCE .ROUTE 06/06/20 09:42 06/06/20 09:43 DC Sodium Chloride 100 ml @ ud STK-MED ONCE IV 06/06/20 09:42 06/06/20 09:43 DC Propofol (Diprivan) 200 mg STK-MED ONCE IV 06/06/20 10:55 06/06/20 10:55 DC Fentanyl Citrate (Sublimaze) 50 mcg STK-MED ONCE .ROUTE 06/06/20 10:56 06/06/20 10:57 DC Ondansetron HCl (Zofran) 4 mg STK-MED ONCE .ROUTE 06/06/20 10:57 06/06/20 10:57 DC Lidocaine HCl (Lidocaine 2% Vial) 500 mg STK-MED ONCE .ROUTE 06/06/20 10:58 06/06/20 10:58 DC Ketorolac Tromethamine (Toradol) 30 mg STK-MED ONCE .ROUTE 06/06/20 10:59 06/06/20 10:59 DC Rocuronium [place] (Rocuronium [place]) 50 mg STK-MED ONCE IV 06/06/20 11:00 06/06/20 11:00 DC Sodium Chloride (Sodium Chloride Irr Bottle) 1,000 ml STK-MED ONCE IR 06/06/20 11:24 06/06/20 11:24 DC Sodium Chloride 250 ml @ ud STK-MED ONCE IV 06/06/20 11:24 06/06/20 11:24 DC Hetastarch/Sodium Chloride 500 ml @ ud STK-MED ONCE IV 06/06/20 12:17 06/06/20 12:17 DC Tramadol HCl (Ultram) 50 mg Q6H PRN PO PAIN 1 - 3 06/06/20 15:00 07/06/20 14:59 Tramadol HCl (Ultram) 100 mg Q6H PRN PO PAIN 4 - 6 06/06/20 15:00 07/06/20 14:59 06/06/20 15:45 Rivaroxaban (Xarelto) 10 mg Q24HRS PO 06/07/20 15:00 07/07/20 14:59 Docusate Sodium (Colace) 100 mg DAILY PO 06/07/20 09:00 07/07/20 08:59 Throat Lozenges (Cepacol Sore Throat Lozenge) 1 each PRN PRN MM SORE THROAT 06/06/20 15:00 07/06/20 14:59 Famotidine (Pepcid) 20 mg DAILY PO 06/07/20 09:00 07/07/20 08:59 Cefazolin Sodium/ Dextrose (Ancef 2 Gm/D5W 50ml) 2 gm Q8 IV 06/06/20 22:00 06/06/20 16:05 DC Acetaminophen (Tylenol) 1,000 mg Q6HR PO 06/06/20 18:00 07/06/20 17:59 06/06/20 18:09 Acetaminophen 100 ml @ ud STK-MED ONCE IV 06/06/20 15:03 06/06/20 15:03 DC Acetaminophen (Ofirmev) 1,000 mg OT ONCE IV 06/06/20 15:00 06/06/20 15:37 DC 06/06/20 15:08 Tramadol HCl (Ultram) 50 mg STK-MED ONCE .ROUTE 06/06/20 15:42 06/06/20 15:42 DC Tramadol HCl (Ultram) 50 mg STK-MED ONCE .ROUTE 06/06/20 15:42 06/06/20 15:43 DC Cefazolin Sodium/ Dextrose 50 ml @ 50 mls/hr Q8H IV 06/06/20 19:00 06/07/20 11:59 06/06/20 18:11 Course Sepsis Screening Results: Posi: POSITIVE Sepsis Qualifier/Stage: SEPSIS RISK Duration or Total Time Spent w: 60 min Vitals & review Data Vital Sign - Last 24 Hours 06/05/20 06/05/20 06/05/20 06/06/20 19:57 23:21 23:24 00:05 Temp 98.6 99.4 Pulse 64 64 65 Resp 18 18 18 B/P (MAP) 102/65 (77) 120/74 (89) Pulse Ox 95 96 95 O2 Delivery Nasal Canula Nasal Cannula Nasal Cannula Nasal Canula O2 Flow Rate 2.00 2.00 2.00 06/06/20 06/06/20 06/06/20 06/06/20 04:53 08:03 10:00 14:24 Temp 99.4 98.4 Pulse 67 63 63 Resp 18 16 16 B/P (MAP) 97/64 (75) 100/59 (73) Pulse Ox 97 93 93 O2 Delivery Nasal Canula Nasal Canula Nasal Cannula O2 Flow Rate 2.00 2.00 10 06/06/20 06/06/20 06/06/20 06/06/20 14:24 14:35 14:45 14:55 Temp 100.8 100.8 100.4 Pulse 73 73 75 69 Resp 16 16 18 16 B/P (MAP) 127/79 (95) 128/90 (103) 107/38 (61) 115/67 (83) Pulse Ox 98 98 99 O2 Delivery Non-Rebreather Non-Rebreather Non-Rebreather Non-Rebreather O2 Flow Rate 10 10 10 10 06/06/20 06/06/20 06/06/20 06/06/20 15:05 15:15 15:25 15:35 Pulse 68 71 67 66 Resp 16 14 16 16 B/P (MAP) 123/79 (94) 120/75 (90) 135/98 (110) 126/79 (95) Pulse Ox 99 100 94 95 O2 Delivery Nasal Canula Nasal Canula Nasal Canula Nasal Canula Non-Rebreather Non-Rebreather O2 Flow Rate 3 3 3 3 06/06/20 06/06/20 06/06/20 15:45 15:55 16:45 Temp 99.9 Pulse 66 66 Resp 16 16 B/P (MAP) 122/76 (91) 120/80 (93) Pulse Ox 97 95 O2 Delivery Nasal Canula Nasal Canula Nasal Cannula Non-Rebreather O2 Flow Rate 3 3 2.00 Intake and Output 06/06/20 07:00 Intake Total 1966 ml Output Total 450 ml Balance 1516 ml Laboratory Tests Test 06/05/20 10:43 06/05/20 18:00 06/05/20 20:25 06/06/20 04:45 White Blood Count 9.9 10^3/uL 8.2 10^3/uL Red Blood Count 4.93 10^6/uL 3.92 10^6/uL Hemoglobin 14.9 g/dL 11.8 g/dL Hematocrit 45.9 % 37.1 % Mean Corpuscular Volume 93.1 fL 94.6 fL Mean Corpuscular Hemoglobin 30.2 pg 30.1 pg Mean Corpuscular Hemoglobin Concent 32.5 g/dL 31.8 g/dL Red Cell Distribution Width 13.2 % 13.2 % Platelet Count 208 10^3/uL 171 10^3/uL Mean Platelet Volume 8.9 fL 8.9 fL Neutrophils (%) (Auto) 80.7 % Lymphocytes (%) (Auto) 14.3 % Monocytes (%) (Auto) 4.4 % Neutrophils # (Auto) 8.0 10^3/uL Lymphocytes # (Auto) 1.41 10^3/uL1 Monocytes # (Auto) 0.4 10^3/uL Absolute Immature Granulocyte (auto 0.03 10^3 u/L Absolute Eosinophils (auto) 0.0 10^3/uL Immature Granulocytes % 0.30 % Eosinophils % 0.2 % Basophils % 0.1 % Basophils # 0.0 10^3/uL Prothrombin Time 27.0 SEC 22.6 SEC 15.1 SEC Prothrombin Time INR (Non-Therap) 2.7 2.2 1.5 Activated Partial Thromboplast Time 26.9 SEC Sodium Level 141 mmol/L 141 mmol/L Potassium Level 4.3 mmol/L 4.0 mmol/L Chloride Level 105.0 mmol/L 106.0 mmol/L Carbon Dioxide Level 27.2 mmol/L 29.6 mmol/L Anion Gap 13.1 9.4 Blood Urea Nitrogen 14 mg/dL 12 mg/dL Creatinine 1.20 mg/dL 1.12 mg/dL Estimated GFR () 53.7 58.2 Est GFR (CKD-EPI)(Non-Afr Togolese) 44.4 48.1 BUN/Creatinine Ratio 11.0 10.0 Glucose Level 134 mg/dL 145 mg/dL Calcium Level 9.1 mg/dL 8.4 mg/dL Total Bilirubin 0.5 mg/dL 0.7 mg/dL Aspartate Amino Transf (AST/SGOT) 13 U/L 36 U/L Alanine Aminotransferase (ALT/SGPT) 19 U/L 40 U/L Alkaline Phosphatase 91 U/L 91 U/L Total Protein 7.1 g/dL 5.9 g/dL Albumin 3.7 g/dL 3.0 g/dL Globulin 3.4 2.9 Albumin/Globulin Ratio 1.088 1.034 Urine Collection Type UNKNOWN Urine Color YELLOW Urine Appearance CLEAR Urine Bilirubin NEGATIVE Urine Ketones NEGATIVE Urine Specific [place] >1.030 Urine pH 5.0 Urine Protein NEGATIVE Urine Urobilinogen NORMAL Urine Nitrate NEGATIVE Urine Leukocyte Esterase NEGATIVE Urine Glucose (Auto)(UA) NEGATIVE Urine Blood MODERATE Urine RBC 2-5 RBC/HPF Urine WBC 0-2 WBC/HPF Urine Squamous Epithelial Cells FEW #/HPF Urine Bacteria NONE SEEN Current Medications Medications (Trade) Dose Ordered Sig/Renée PRN Reason Start Time Stop Time Status Last Admin Acetaminophen (Tylenol) 1,000 mg Q6HR 06/06/20 18:00 07/06/20 17:59 06/06/20 18:09 Cefazolin Sodium/ Dextrose 50 ml @ 50 mls/hr Q8H 06/06/20 19:00 06/07/20 11:59 06/06/20 18:11 Diazepam (Valium) 5 mg Q6HR PRN MUSCLE SPASM 06/05/20 20:30 07/05/20 20:29 06/06/20 00:00 Docusate Sodium (Colace) 100 mg DAILY 06/07/20 09:00 07/07/20 08:59 Famotidine (Pepcid) 20 mg DAILY 06/07/20 09:00 07/07/20 08:59 Rivaroxaban (Xarelto) 10 mg Q24HRS 06/07/20 15:00 07/07/20 14:59 Throat Lozenges (Cepacol Sore Throat Lozenge) 1 each PRN PRN SORE THROAT 06/06/20 15:00 07/06/20 14:59 Tramadol HCl (Ultram) 50 mg Q6H PRN PAIN 1 - 3 06/06/20 15:00 07/06/20 14:59 Tramadol HCl (Ultram) 100 mg Q6H PRN PAIN 4 - 6 06/06/20 15:00 07/06/20 14:59 06/06/20 15:45 LEVEL 1 SEPSIS INFECTION CRITE: ABX Therapy, Recent Invasive Procedure LEVEL 2-SIRS (LIST ALL THAT AP: None/Not assessed Cardiovascular Evidence: Not Assessed or None Hematologic Evidence: None/Not assessed Hepatic Evidence: None/Not assessed Metabolic Evidence: None/Not assessed Neurological Evidence: None/Not assessed Respiratory Evidence: Need for O2 to keep>90% Renal Evidence: None/Not assessed O2 Sat by Pulse Oximetry: 97 Oxygen Flow Rate: 2.00 Assessment/Plan Assessment/Plan Assessment/Plan Continue to monitor hemoglobin hematocrit. Start the patient on CPAP 12 cm of water at night during sleep. To restart warfarin once no signs of active bleed. PT/OT eval and treat GI and DVT prophylaxis Problems: (1) Fracture, femur Status: Acute Assessment & Plan: s/p operative repair, will need rehab placement, PT/OT ordered ICD Code: S72.90XA - Unspecified fracture of unspecified femur, initial encounter for closed fracture SNOMED: 60087018 (2) Morbid obesity with BMI of 50.0-59.9, adult Status: Chronic Assessment & Plan: will ultimately need weight loss, however, this will be delayed by wound healing ICD Code: E66.01 - Morbid (severe) obesity due to excess calories; Z68.43 - Body mass index [BMI] 50.0-59.9, adult SNOMED: 627349495, [id number], [id number] (3) Atrial fibrillation Status: Chronic Assessment & Plan: will switch back to warfarin today based upon cost of xarelto ICD Code: I48.91 - Unspecified atrial fibrillation SNOMED: 78121868 (4) Apnea, sleep Status: Chronic Assessment & Plan: CPAP at night, 12cm [facility] home setting ICD Code: G47.30 - Sleep apnea, unspecified SNOMED: [id number] Plan Continue to monitor hemoglobin hematocrit. Start the patient on CPAP 12 cm of water at night during sleep. To restart warfarin once no signs of active bleed. PT/OT eval and treat GI and DVT prophylaxis Problem Qualifiers (1) Fracture, femur: Encounter type: initial encounter Femur location: shaft Fracture type: cindi sed Fracture morphology: transverse Fracture alignment: displaced Late rality: right Qualified Codes: S72.321A - Displaced transverse fracture of shaft of right femur, initial encounter for closed fracture GAEL SCHUMACHER MD Jun 10, 2020 08:25
[2020-06-10 08:40] VITALS: BP 116/50
[2020-06-10 08:45] LABS: RED CELL DISTRIBUTION WIDTH 13.7 % (11.5-14.5)
--- NOTE | 2020-06-10 08:48 | PRM.PN ---
Subjective Subjective Date: Jun 10, 2020 Time: 08:42 Subjective patient laying in bed, denies pain appetite good VSS labs reviewed; stable NWB STEPHONE, shelbie VTE VTE Risk Total Score: 2 VTE Risk Score VTE Risk: Score 0-1 = Low Risk (Aggressive mobilization; early ambulation; no VTE prophylaxis required) Score 2: Moderate Risk (Intermittent/Pneumatic Compression Device OR Lovenox/Heparin/Coumadin) Score 3-4: High Risk (Intermittent/Pneumatic Compression Device AND Lovenox/Heparin/Coumadin) Score > or =5: Highest Risk (Intermittent/Pneumatic Compression Device AND Lovenox/Heparin/Coumadin) Antico:Hep/LMWH/Coum/Xarelto: Yes Mechanical device ordered: Yes Reasons not ordering prophylax: Blood coag disorder Review of Systems Constitutional: No: Fever, Chills, Sweats Eyes: No: Vision change, Conjunctivae inflammation, Eyelid inflammation, Other, Redness ENT: No: Ear pain, Ear discharge, Nose pain, Nose discharge, Nose congestion, Mouth pain, Mouth swelling, Throat pain, Throat swelling Respiratory: No: Cough, Dry, Shortness of breath, SOB with excertion, Wheezing, Hemoptysis, Pleuritic Pain, Sputum, Wheezing Cardiovascular: No: Chest Pain, Palpitations, Orthopnea, Paroxysmal Noc. Dyspnea, Edema, Lt Headedness Gastrointestinal: No: Nausea, Vomiting, Abdominal Pain, Diarrhea, Constipation, Melena, Hematochezia Genitourinary: No Dysuria, No Frequency, No Incontinence, No Hematuria, No Retention Musculoskeletal: leg pain Skin: No: Rash, Lesions, Jaundice, Bruising, Other Neurological: No: Weakness, Numbness, Incoordination, Change in speech Allergies: Coded Allergies: No Known Allergies (Unverified , 06/05/20) Scheduled Aspirin (Aspirin), 1 TAB PO DAILY, (Reported) Bupropion Hcl (Bupropion Xl), 3 TAB PO DAILY, (Reported) Buspirone Hcl (Buspirone Hcl), 1 TAB PO TID, (Reported) Citalopram Hydrobromide (Citalopram Hbr), 1 TAB PO DAILY, (Reported) Flecainide Acetate (Flecainide Acetate), 50 MG PO BID, (Reported) Oxybutynin Chloride (Oxybutynin Chloride Er), 1 TAB PO DAILY, (Reported) Spironolactone 25MG (Aldactone 25MG), 1 TAB PO DAILY, (Reported) Warfarin Sodium (Warfarin Sodium), 1.5 TAB PO M-W-, (Reported) Warfarin Sodium (Warfarin Sodium), 1 TAB PO [id number], (Reported) Objective Vitals and I/O Vital Sign - Last 24 Hours 06/09/20 06/09/20 06/09/20 06/09/20 08:50 13:10 16:33 20:00 Temp 99.6 101.7 Pulse 88 97 74 Resp 18 20 20 B/P (MAP) 142/60 (87) 137/58 (84) Pulse Ox 95 99 74 O2 Delivery Nasal Cannula Room Air Nasal Canula Nasal Cannula O2 Flow Rate 2.00 2.00 2.00 FiO2 28 06/09/20 06/10/20 06/10/20 06/10/20 20:32 00:30 06:15 08:28 Temp 99.4 100.6 99.2 Pulse 67 65 66 81 Resp 20 20 20 20 B/P (MAP) 101/60 (74) 114/76 (89) 119/69 (86) Pulse Ox 94 95 97 97 O2 Delivery Nasal Canula Nasal Canula Nasal Canula Nasal Cannula O2 Flow Rate 2.00 2.00 2.00 2.00 06/10/20 08:40 Temp 99.0 Pulse 64 Resp 18 B/P (MAP) 116/50 (72) Pulse Ox 96 Intake and Output 06/10/20 07:00 Intake Total 1080 ml Output Total 800 ml Balance 280 ml General: Alert, Oriented X3, Cooperative, No acute distress HEENT: Atraumatic, PERRLA, EOMI, Mucous membr. moist/pink, Other (glasses) Neck: Supple Lungs: Clear to auscultation, Normal air movement Heart: Regular rate, Normal S1, Normal S2, Other (Irregular) Abdomen: Normal bowel sounds, Soft, No tenderness Extremities: No clubbing, No edema, Normal pulses, Other (right leg immobilizer intact, prevenia intact. Neuros intact) Skin: No significant lesion Neuro: Normal speech, Strength at 5/5 X4 ext, Normal tone Psych/Mental Status: Mental status NL, Mood NL All Results(Lab/Rad) Laboratory Tests Test 06/05/20 20:25 06/06/20 04:45 Prothrombin Time 22.6 SEC 15.1 SEC Prothrombin Time INR (Non-Therap) 2.2 1.5 White Blood Count 8.2 10^3/uL Red Blood Count 3.92 10^6/uL Hemoglobin 11.8 g/dL Hematocrit 37.1 % Mean Corpuscular Volume 94.6 fL Mean Corpuscular Hemoglobin 30.1 pg Mean Corpuscular Hemoglobin Concent 31.8 g/dL Red Cell Distribution Width 13.2 % Platelet Count 171 10^3/uL Mean Platelet Volume 8.9 fL Sodium Level 141 mmol/L Potassium Level 4.0 mmol/L Chloride Level 106.0 mmol/L Carbon Dioxide Level 29.6 mmol/L Anion Gap 9.4 Blood Urea Nitrogen 12 mg/dL Creatinine 1.12 mg/dL Estimated GFR () 58.2 Est GFR (CKD-EPI)(Non-Afr [place]) 48.1 BUN/Creatinine Ratio 10.0 Glucose Level 145 mg/dL Calcium Level 8.4 mg/dL Total Bilirubin 0.7 mg/dL Aspartate Amino Transf (AST/SGOT) 36 U/L Alanine Aminotransferase (ALT/SGPT) 40 U/L Alkaline Phosphatase 91 U/L Total Protein 5.9 g/dL Albumin 3.0 g/dL Globulin 2.9 Albumin/Globulin Ratio 1.034 Current Medications Medications (Trade) Dose Ordered Sig/Renée Route PRN Reason Start Time Stop Time Status Last Admin Dose Admin Diphtheria/ Tetanus/Acell Pertussis (Adacel Vial) 0.5 ml ONCE ONCE IM 06/05/20 10:30 06/05/20 10:31 DC 06/05/20 10:29 Diphtheria/ Tetanus/Acell Pertussis (Adacel Vial) 0.5 ml STK-MED ONCE IM 06/05/20 10:27 06/05/20 10:27 DC Hydromorphone HCl (Dilaudid) 1 mg STAT STAT IV 06/05/20 11:47 06/05/20 11:50 DC 06/05/20 12:26 Hydromorphone HCl (Dilaudid) 2 mg STK-MED ONCE .ROUTE 06/05/20 11:53 06/05/20 11:54 DC Propofol (Diprivan) 200 mg STK-MED ONCE IV 06/05/20 11:58 06/05/20 11:58 DC Sodium Chloride 1,000 ml @ ud STK-MED ONCE .ROUTE 06/05/20 11:58 06/05/20 11:58 DC Cefazolin Sodium 3 gm/Sodium Chloride 100 ml @ 100 mls/hr OT ONCE IV 06/06/20 11:00 06/06/20 11:59 DC Tramadol HCl (Ultram) 50 mg STK-MED ONCE .ROUTE 06/05/20 16:54 06/05/20 16:54 DC Tramadol HCl (Ultram) 50 mg Q6HR PRN PO PAIN 4 - 6 06/05/20 17:00 06/06/20 15:57 DC 06/05/20 17:10 Hydromorphone HCl (Dilaudid) 2 mg STK-MED ONCE .ROUTE 06/05/20 17:49 06/05/20 17:49 DC Hydromorphone HCl (Dilaudid) 1 mg OT PRN IV PAIN 7 - 10 06/05/20 18:00 06/06/20 02:25 DC 06/05/20 18:04 Fentanyl Citrate (Sublimaze) 50 mcg STK-MED ONCE .ROUTE 06/05/20 18:17 06/05/20 18:17 DC Fentanyl Citrate (Sublimaze) 25 mcg OT ONCE IV 06/05/20 19:30 06/06/20 02:25 DC 06/05/20 18:45 Tramadol HCl (Ultram) 100 mg Q4HR PRN PO PAIN 4 - 6 06/05/20 20:30 06/06/20 15:58 DC 06/05/20 22:21 Diazepam (Valium) 5 mg Q6HR PRN PO MUSCLE SPASM 06/05/20 20:30 07/05/20 20:29 06/06/20 00:00 Sodium Chloride 100 ml @ ud STK-MED ONCE IV 06/05/20 21:35 06/05/20 21:35 DC Hydromorphone HCl (Dilaudid) 1 mg OT ONCE IV 06/06/20 02:30 06/06/20 02:31 DC 06/06/20 06:08 Hydromorphone HCl (Dilaudid) 2 mg STK-MED ONCE .ROUTE 06/06/20 06:07 06/06/20 06:07 DC Sodium Chloride 100 ml @ ud STK-MED ONCE IV 06/06/20 06:36 06/06/20 06:36 DC Diphenhydramine HCl (Benadryl) 25 mg OT ONCE PO 06/06/20 10:00 06/06/20 10:01 DC 06/06/20 09:49 Cefazolin Sodium (Ancef) 1 gm STK-MED ONCE .ROUTE 06/06/20 09:42 06/06/20 09:43 DC Sodium Chloride 100 ml @ ud STK-MED ONCE IV 06/06/20 09:42 06/06/20 09:43 DC Propofol (Diprivan) 200 mg STK-MED ONCE IV 06/06/20 10:55 06/06/20 10:55 DC Fentanyl Citrate (Sublimaze) 50 mcg STK-MED ONCE .ROUTE 06/06/20 10:56 06/06/20 10:57 DC Ondansetron HCl (Zofran) 4 mg STK-MED ONCE .ROUTE 06/06/20 10:57 06/06/20 10:57 DC Lidocaine HCl (Lidocaine 2% Vial) 500 mg STK-MED ONCE .ROUTE 06/06/20 10:58 06/06/20 10:58 DC Ketorolac Tromethamine (Toradol) 30 mg STK-MED ONCE .ROUTE 06/06/20 10:59 06/06/20 10:59 DC Rocuronium Haskins (Rocuronium Haskins) 50 mg STK-MED ONCE IV 06/06/20 11:00 06/06/20 11:00 DC Sodium Chloride (Sodium Chloride Irr Bottle) 1,000 ml STK-MED ONCE IR 06/06/20 11:24 06/06/20 11:24 DC Sodium Chloride 250 ml @ ud STK-MED ONCE IV 06/06/20 11:24 06/06/20 11:24 DC Hetastarch/Sodium Chloride 500 ml @ ud STK-MED ONCE IV 06/06/20 12:17 06/06/20 12:17 DC Tramadol HCl (Ultram) 50 mg Q6H PRN PO PAIN 1 - 3 06/06/20 15:00 07/06/20 14:59 Tramadol HCl (Ultram) 100 mg Q6H PRN PO PAIN 4 - 6 06/06/20 15:00 07/06/20 14:59 06/06/20 15:45 Rivaroxaban (Xarelto) 10 mg Q24HRS PO 06/07/20 15:00 07/07/20 14:59 Docusate Sodium (Colace) 100 mg DAILY PO 06/07/20 09:00 07/07/20 08:59 Throat Lozenges (Cepacol Sore Throat Lozenge) 1 each PRN PRN MM SORE THROAT 06/06/20 15:00 07/06/20 14:59 Famotidine (Pepcid) 20 mg DAILY PO 06/07/20 09:00 07/07/20 08:59 Cefazolin Sodium/ Dextrose (Ancef 2 Gm/D5W 50ml) 2 gm Q8 IV 06/06/20 22:00 06/06/20 16:05 DC Acetaminophen (Tylenol) 1,000 mg Q6HR PO 06/06/20 18:00 07/06/20 17:59 06/06/20 18:09 Acetaminophen 100 ml @ ud STK-MED ONCE IV 06/06/20 15:03 06/06/20 15:03 DC Acetaminophen (Ofirmev) 1,000 mg OT ONCE IV 06/06/20 15:00 06/06/20 15:37 DC 06/06/20 15:08 Tramadol HCl (Ultram) 50 mg STK-MED ONCE .ROUTE 06/06/20 15:42 06/06/20 15:42 DC Tramadol HCl (Ultram) 50 mg STK-MED ONCE .ROUTE 06/06/20 15:42 06/06/20 15:43 DC Cefazolin Sodium/ Dextrose 50 ml @ 50 mls/hr Q8H IV 06/06/20 19:00 06/07/20 11:59 06/06/20 18:11 Course Sepsis Screening Results: Posi: POSITIVE Sepsis Qualifier/Stage: SEPSIS RISK Duration or Total Time Spent w: 60 min Vitals & review Data Vital Sign - Last 24 Hours 06/05/20 06/05/20 06/05/20 06/06/20 19:57 23:21 23:24 00:05 Temp 98.6 99.4 Pulse 64 64 65 Resp 18 18 18 B/P (MAP) 102/65 (77) 120/74 (89) Pulse Ox 95 96 95 O2 Delivery Nasal Canula Nasal Cannula Nasal Cannula Nasal Canula O2 Flow Rate 2.00 2.00 2.00 06/06/20 06/06/20 06/06/20 06/06/20 04:53 08:03 10:00 14:24 Temp 99.4 98.4 Pulse 67 63 63 Resp 18 16 16 B/P (MAP) 97/64 (75) 100/59 (73) Pulse Ox 97 93 93 O2 Delivery Nasal Canula Nasal Canula Nasal Cannula O2 Flow Rate 2.00 2.00 10 06/06/20 06/06/20 06/06/20 06/06/20 14:24 14:35 14:45 14:55 Temp 100.8 100.8 100.4 Pulse 73 73 75 69 Resp 16 16 18 16 B/P (MAP) 127/79 (95) 128/90 (103) 107/38 (61) 115/67 (83) Pulse Ox 98 98 99 O2 Delivery Non-Rebreather Non-Rebreather Non-Rebreather Non-Rebreather O2 Flow Rate 10 10 10 10 06/06/20 06/06/20 06/06/20 06/06/20 15:05 15:15 15:25 15:35 Pulse 68 71 67 66 Resp 16 14 16 16 B/P (MAP) 123/79 (94) 120/75 (90) 135/98 (110) 126/79 (95) Pulse Ox 99 100 94 95 O2 Delivery Nasal Canula Nasal Canula Nasal Canula Nasal Canula Non-Rebreather Non-Rebreather O2 Flow Rate 3 3 3 3 06/06/20 06/06/20 06/06/20 15:45 15:55 16:45 Temp 99.9 Pulse 66 66 Resp 16 16 B/P (MAP) 122/76 (91) 120/80 (93) Pulse Ox 97 95 O2 Delivery Nasal Canula Nasal Canula Nasal Cannula Non-Rebreather O2 Flow Rate 3 3 2.00 Intake and Output 06/06/20 07:00 Intake Total 1966 ml Output Total 450 ml Balance 1516 ml Laboratory Tests Test 06/05/20 10:43 06/05/20 18:00 06/05/20 20:25 06/06/20 04:45 White Blood Count 9.9 10^3/uL 8.2 10^3/uL Red Blood Count 4.93 10^6/uL 3.92 10^6/uL Hemoglobin 14.9 g/dL 11.8 g/dL Hematocrit 45.9 % 37.1 % Mean Corpuscular Volume 93.1 fL 94.6 fL Mean Corpuscular Hemoglobin 30.2 pg 30.1 pg Mean Corpuscular Hemoglobin Concent 32.5 g/dL 31.8 g/dL Red Cell Distribution Width 13.2 % 13.2 % Platelet Count 208 10^3/uL 171 10^3/uL Mean Platelet Volume 8.9 fL 8.9 fL Neutrophils (%) (Auto) 80.7 % Lymphocytes (%) (Auto) 14.3 % Monocytes (%) (Auto) 4.4 % Neutrophils # (Auto) 8.0 10^3/uL Lymphocytes # (Auto) 1.41 10^3/uL1 Monocytes # (Auto) 0.4 10^3/uL Absolute Immature Granulocyte (auto 0.03 10^3 u/L Absolute Eosinophils (auto) 0.0 10^3/uL Immature Granulocytes % 0.30 % Eosinophils % 0.2 % Basophils % 0.1 % Basophils # 0.0 10^3/uL Prothrombin Time 27.0 SEC 22.6 SEC 15.1 SEC Prothrombin Time INR (Non-Therap) 2.7 2.2 1.5 Activated Partial Thromboplast Time 26.9 SEC Sodium Level 141 mmol/L 141 mmol/L Potassium Level 4.3 mmol/L 4.0 mmol/L Chloride Level 105.0 mmol/L 106.0 mmol/L Carbon Dioxide Level 27.2 mmol/L 29.6 mmol/L Anion Gap 13.1 9.4 Blood Urea Nitrogen 14 mg/dL 12 mg/dL Creatinine 1.20 mg/dL 1.12 mg/dL Estimated GFR () 53.7 58.2 Est GFR (CKD-EPI)(Non-Afr [place]) 44.4 48.1 BUN/Creatinine Ratio 11.0 10.0 Glucose Level 134 mg/dL 145 mg/dL Calcium Level 9.1 mg/dL 8.4 mg/dL Total Bilirubin 0.5 mg/dL 0.7 mg/dL Aspartate Amino Transf (AST/SGOT) 13 U/L 36 U/L Alanine Aminotransferase (ALT/SGPT) 19 U/L 40 U/L Alkaline Phosphatase 91 U/L 91 U/L Total Protein 7.1 g/dL 5.9 g/dL Albumin 3.7 g/dL 3.0 g/dL Globulin 3.4 2.9 Albumin/Globulin Ratio 1.088 1.034 Urine Collection Type UNKNOWN Urine Color YELLOW Urine Appearance CLEAR Urine Bilirubin NEGATIVE Urine Ketones NEGATIVE Urine Specific [place] >1.030 Urine pH 5.0 Urine Protein NEGATIVE Urine Urobilinogen NORMAL Urine Nitrate NEGATIVE Urine Leukocyte Esterase NEGATIVE Urine Glucose (Auto)(UA) NEGATIVE Urine Blood MODERATE Urine RBC 2-5 RBC/HPF Urine WBC 0-2 WBC/HPF Urine Squamous Epithelial Cells FEW #/HPF Urine Bacteria NONE SEEN Current Medications Medications (Trade) Dose Ordered Sig/Renée PRN Reason Start Time Stop Time Status Last Admin Acetaminophen (Tylenol) 1,000 mg Q6HR 06/06/20 18:00 07/06/20 17:59 06/06/20 18:09 Cefazolin Sodium/ Dextrose 50 ml @ 50 mls/hr Q8H 06/06/20 19:00 06/07/20 11:59 06/06/20 18:11 Diazepam (Valium) 5 mg Q6HR PRN MUSCLE SPASM 06/05/20 20:30 07/05/20 20:29 06/06/20 00:00 Docusate Sodium (Colace) 100 mg DAILY 06/07/20 09:00 07/07/20 08:59 Famotidine (Pepcid) 20 mg DAILY 06/07/20 09:00 07/07/20 08:59 Rivaroxaban (Xarelto) 10 mg Q24HRS 06/07/20 15:00 07/07/20 14:59 Throat Lozenges (Cepacol Sore Throat Lozenge) 1 each PRN PRN SORE THROAT 06/06/20 15:00 07/06/20 14:59 Tramadol HCl (Ultram) 50 mg Q6H PRN PAIN 1 - 3 06/06/20 15:00 07/06/20 14:59 Tramadol HCl (Ultram) 100 mg Q6H PRN PAIN 4 - 6 06/06/20 15:00 07/06/20 14:59 06/06/20 15:45 LEVEL 1 SEPSIS INFECTION CRITE: ABX Therapy, Recent Invasive Procedure LEVEL 2-SIRS (LIST ALL THAT AP: None/Not assessed Cardiovascular Evidence: Not Assessed or None Hematologic Evidence: None/Not assessed Hepatic Evidence: None/Not assessed Metabolic Evidence: None/Not assessed Neurological Evidence: None/Not assessed Respiratory Evidence: Need for O2 to keep>90% Renal Evidence: None/Not assessed O2 Sat by Pulse Oximetry: 96 Oxygen Flow Rate: 2.00 Assessment/Plan Assessment/Plan Problems: (1) Fracture, femur Status: Acute ICD Code: S72.90XA - Unspecified fracture of unspecified femur, initial enc ounter for closed fracture SNOMED: [id number] Plan Right femur fracture- ORIF POD #4. Right knee immobilizer. NWB RLE. PT/OT eval and treat. keep morfin intact due to NWB status, incontinent and morbidly obese fall and safety precautions Plan: placement in [place] for rehab pending Problem Qualifiers (1) Fracture, femur: Encounter type: subsequent encounter Femur location: shaft Fracture type: closed Fracture morphology: transverse Fracture alignment: displaced Laterality: right TYRONE BERNAL NP Jun 10, 2020 08:48
[2020-06-10] MEDS: NEURONTIN PO SCH (09:23)
[2020-06-10] MEDS: PEPCID PO SCH (09:24)
[2020-06-10] MEDS: COLACE PO SCH (09:27)
--- NOTE | 2020-06-10 10:00 | NUR ---
DISCHARGE PLAN REFERRAL FAXED TO [facility] 06/07/20. PATIENT ACCEPTED ON 06/10/20 @ 1000. DISCHARGE PLAN IS FOR PATIENT TO D/C TO [facility] IN [place], [facility]. EMS TO TRANSPORT.
--- NOTE | 2020-06-10 11:10 | PRM.PN ---
Subjective Subjective Date: Jun 10, 2020 Time: 11:07 Subjective Pain controlled Afebrile VSS Pt accepted in [facility] Pt prefers to F/U with her regular Ortho surgeon in [place] Needs to be Nonweight bearing for 6 weeks Ok to remove dressing on Needs to maintain morfin for now Needs ambulance for transfer VTE VTE Risk Total Score: 2 VTE Risk Score VTE Risk: Score 0-1 = Low Risk (Aggressive mobilization; early ambulation; no VTE prophylaxis required) Score 2: Moderate Risk (Intermittent/Pneumatic Compression Device OR Lovenox/Heparin/Coumadin) Score 3-4: High Risk (Intermittent/Pneumatic Compression Device AND Lovenox/Heparin/Coumadin) Score > or =5: Highest Risk (Intermittent/Pneumatic Compression Device AND Lovenox/Heparin/Coumadin) Antico:Hep/LMWH/Coum/Xarelto: Yes Mechanical device ordered: Yes Reasons not ordering prophylax: Blood coag disorder Review of Systems Constitutional: No: Fever, Chills, Sweats Eyes: No: Vision change, Conjunctivae inflammation, Eyelid inflammation, Other, Redness ENT: No: Ear pain, Ear discharge, Nose pain, Nose discharge, Nose congestion, Mouth pain, Mouth swelling, Throat pain, Throat swelling Respiratory: No: Cough, Dry, Shortness of breath, SOB with excertion, Wheezing, Hemoptysis, Pleuritic Pain, Sputum, Wheezing Cardiovascular: No: Chest Pain, Palpitations, Orthopnea, Paroxysmal Noc. Dyspnea, Edema, Lt Headedness Gastrointestinal: No: Nausea, Vomiting, Abdominal Pain, Diarrhea, Constipation, Melena, Hematochezia Genitourinary: No Dysuria, No Frequency, No Incontinence, No Hematuria, No Retention Musculoskeletal: leg pain Skin: No: Rash, Lesions, Jaundice, Bruising, Other Neurological: No: Weakness, Numbness, Incoordination, Change in speech Allergies: Coded Allergies: No Known Allergies (Unverified , 06/05/20) Scheduled Aspirin (Aspirin), 1 TAB PO DAILY, (Reported) Bupropion Hcl (Bupropion Xl), 3 TAB PO DAILY, (Reported) Buspirone Hcl (Buspirone Hcl), 1 TAB PO TID, (Reported) Citalopram Hydrobromide (Citalopram Hbr), 1 TAB PO DAILY, (Reported) Flecainide Acetate (Flecainide Acetate), 50 MG PO BID, (Reported) Oxybutynin Chloride (Oxybutynin Chloride Er), 1 TAB PO DAILY, (Reported) Spironolactone 25MG (Aldactone 25MG), 1 TAB PO DAILY, (Reported) Warfarin Sodium (Warfarin Sodium), 1.5 TAB PO M-W-, (Reported) Warfarin Sodium (Warfarin Sodium), 1 TAB PO [id number], (Reported) Objective Vitals and I/O Vital Sign - Last 24 Hours 06/09/20 06/09/20 06/09/20 06/09/20 13:10 16:33 20:00 20:32 Temp 99.6 101.7 99.4 Pulse 97 74 67 Resp 20 20 20 B/P (MAP) 142/60 (87) 137/58 (84) 101/60 (74) Pulse Ox 99 74 94 O2 Delivery Room Air Nasal Canula Nasal Cannula Nasal Canula O2 Flow Rate 2.00 2.00 2.00 06/10/20 06/10/20 06/10/20 06/10/20 00:30 06:15 08:28 08:40 Temp 100.6 99.2 99.0 Pulse 65 66 81 64 Resp 20 20 20 18 B/P (MAP) 114/76 (89) 119/69 (86) 116/50 (72) Pulse Ox 95 97 97 96 O2 Delivery Nasal Canula Nasal Canula Nasal Cannula O2 Flow Rate 2.00 2.00 2.00 Intake and Output 06/10/20 07:00 Intake Total 1080 ml Output Total 800 ml Balance 280 ml General: Alert, Oriented X3, Cooperative, No acute distress HEENT: Atraumatic, PERRLA, EOMI, Mucous membr. moist/pink, Other (glasses) Neck: Supple Lungs: Clear to auscultation, Normal air movement Heart: Regular rate, Normal S1, Normal S2, Other (Irregular) Abdomen: Normal bowel sounds, Soft, No tenderness Extremities: No clubbing, No edema, Normal pulses, Other (right leg immobilizer intact, prevenia intact. Neuros intact) Skin: No significant lesion Neuro: Normal speech, Strength at 5/5 X4 ext, Normal tone Psych/Mental Status: Mental status NL, Mood NL All Results(Lab/Rad) Laboratory Tests Test 06/05/20 20:25 06/06/20 04:45 Prothrombin Time 22.6 SEC 15.1 SEC Prothrombin Time INR (Non-Therap) 2.2 1.5 White Blood Count 8.2 10^3/uL Red Blood Count 3.92 10^6/uL Hemoglobin 11.8 g/dL Hematocrit 37.1 % Mean Corpuscular Volume 94.6 fL Mean Corpuscular Hemoglobin 30.1 pg Mean Corpuscular Hemoglobin Concent 31.8 g/dL Red Cell Distribution Width 13.2 % Platelet Count 171 10^3/uL Mean Platelet Volume 8.9 fL Sodium Level 141 mmol/L Potassium Level 4.0 mmol/L Chloride Level 106.0 mmol/L Carbon Dioxide Level 29.6 mmol/L Anion Gap 9.4 Blood Urea Nitrogen 12 mg/dL Creatinine 1.12 mg/dL Estimated GFR () 58.2 Est GFR (CKD-EPI)(Non-Afr [place] Citizen) 48.1 BUN/Creatinine Ratio 10.0 Glucose Level 145 mg/dL Calcium Level 8.4 mg/dL Total Bilirubin 0.7 mg/dL Aspartate Amino Transf (AST/SGOT) 36 U/L Alanine Aminotransferase (ALT/SGPT) 40 U/L Alkaline Phosphatase 91 U/L Total Protein 5.9 g/dL Albumin 3.0 g/dL Globulin 2.9 Albumin/Globulin Ratio 1.034 Current Medications Medications (Trade) Dose Ordered Sig/Renée Route PRN Reason Start Time Stop Time Status Last Admin Dose Admin Diphtheria/ Tetanus/Acell Pertussis (Adacel Vial) 0.5 ml ONCE ONCE IM 06/05/20 10:30 06/05/20 10:31 DC 06/05/20 10:29 Diphtheria/ Tetanus/Acell Pertussis (Adacel Vial) 0.5 ml STK-MED ONCE IM 06/05/20 10:27 06/05/20 10:27 DC Hydromorphone HCl (Dilaudid) 1 mg STAT STAT IV 06/05/20 11:47 06/05/20 11:50 DC 06/05/20 12:26 Hydromorphone HCl (Dilaudid) 2 mg STK-MED ONCE .ROUTE 06/05/20 11:53 06/05/20 11:54 DC Propofol (Diprivan) 200 mg STK-MED ONCE IV 06/05/20 11:58 06/05/20 11:58 DC Sodium Chloride 1,000 ml @ ud STK-MED ONCE .ROUTE 06/05/20 11:58 06/05/20 11:58 DC Cefazolin Sodium 3 gm/Sodium Chloride 100 ml @ 100 mls/hr OT ONCE IV 06/06/20 11:00 06/06/20 11:59 DC Tramadol HCl (Ultram) 50 mg STK-MED ONCE .ROUTE 06/05/20 16:54 06/05/20 16:54 DC Tramadol HCl (Ultram) 50 mg Q6HR PRN PO PAIN 4 - 6 06/05/20 17:00 06/06/20 15:57 DC 06/05/20 17:10 Hydromorphone HCl (Dilaudid) 2 mg STK-MED ONCE .ROUTE 06/05/20 17:49 06/05/20 17:49 DC Hydromorphone HCl (Dilaudid) 1 mg OT PRN IV PAIN 7 - 10 06/05/20 18:00 06/06/20 02:25 DC 06/05/20 18:04 Fentanyl Citrate (Sublimaze) 50 mcg STK-MED ONCE .ROUTE 06/05/20 18:17 06/05/20 18:17 DC Fentanyl Citrate (Sublimaze) 25 mcg OT ONCE IV 06/05/20 19:30 06/06/20 02:25 DC 06/05/20 18:45 Tramadol HCl (Ultram) 100 mg Q4HR PRN PO PAIN 4 - 6 06/05/20 20:30 06/06/20 15:58 DC 06/05/20 22:21 Diazepam (Valium) 5 mg Q6HR PRN PO MUSCLE SPASM 06/05/20 20:30 07/05/20 20:29 06/06/20 00:00 Sodium Chloride 100 ml @ ud STK-MED ONCE IV 06/05/20 21:35 06/05/20 21:35 DC Hydromorphone HCl (Dilaudid) 1 mg OT ONCE IV 06/06/20 02:30 06/06/20 02:31 DC 06/06/20 06:08 Hydromorphone HCl (Dilaudid) 2 mg STK-MED ONCE .ROUTE 06/06/20 06:07 06/06/20 06:07 DC Sodium Chloride 100 ml @ ud STK-MED ONCE IV 06/06/20 06:36 06/06/20 06:36 DC Diphenhydramine HCl (Benadryl) 25 mg OT ONCE PO 06/06/20 10:00 06/06/20 10:01 DC 06/06/20 09:49 Cefazolin Sodium (Ancef) 1 gm STK-MED ONCE .ROUTE 06/06/20 09:42 06/06/20 09:43 DC Sodium Chloride 100 ml @ ud STK-MED ONCE IV 06/06/20 09:42 06/06/20 09:43 DC Propofol (Diprivan) 200 mg STK-MED ONCE IV 06/06/20 10:55 06/06/20 10:55 DC Fentanyl Citrate (Sublimaze) 50 mcg STK-MED ONCE .ROUTE 06/06/20 10:56 06/06/20 10:57 DC Ondansetron HCl (Zofran) 4 mg STK-MED ONCE .ROUTE 06/06/20 10:57 06/06/20 10:57 DC Lidocaine HCl (Lidocaine 2% Vial) 500 mg STK-MED ONCE .ROUTE 06/06/20 10:58 06/06/20 10:58 DC Ketorolac Tromethamine (Toradol) 30 mg STK-MED ONCE .ROUTE 06/06/20 10:59 06/06/20 10:59 DC Rocuronium [place] (Rocuronium [place]) 50 mg STK-MED ONCE IV 06/06/20 11:00 06/06/20 11:00 DC Sodium Chloride (Sodium Chloride Irr Bottle) 1,000 ml STK-MED ONCE IR 06/06/20 11:24 06/06/20 11:24 DC Sodium Chloride 250 ml @ ud STK-MED ONCE IV 06/06/20 11:24 06/06/20 11:24 DC Hetastarch/Sodium Chloride 500 ml @ ud STK-MED ONCE IV 06/06/20 12:17 06/06/20 12:17 DC Tramadol HCl (Ultram) 50 mg Q6H PRN PO PAIN 1 - 3 06/06/20 15:00 07/06/20 14:59 Tramadol HCl (Ultram) 100 mg Q6H PRN PO PAIN 4 - 6 06/06/20 15:00 07/06/20 14:59 06/06/20 15:45 Rivaroxaban (Xarelto) 10 mg Q24HRS PO 06/07/20 15:00 07/07/20 14:59 Docusate Sodium (Colace) 100 mg DAILY PO 06/07/20 09:00 07/07/20 08:59 Throat Lozenges (Cepacol Sore Throat Lozenge) 1 each PRN PRN MM SORE THROAT 06/06/20 15:00 07/06/20 14:59 Famotidine (Pepcid) 20 mg DAILY PO 06/07/20 09:00 07/07/20 08:59 Cefazolin Sodium/ Dextrose (Ancef 2 Gm/D5W 50ml) 2 gm Q8 IV 06/06/20 22:00 06/06/20 16:05 DC Acetaminophen (Tylenol) 1,000 mg Q6HR PO 06/06/20 18:00 07/06/20 17:59 06/06/20 18:09 Acetaminophen 100 ml @ ud STK-MED ONCE IV 06/06/20 15:03 06/06/20 15:03 DC Acetaminophen (Ofirmev) 1,000 mg OT ONCE IV 06/06/20 15:00 06/06/20 15:37 DC 06/06/20 15:08 Tramadol HCl (Ultram) 50 mg STK-MED ONCE .ROUTE 06/06/20 15:42 06/06/20 15:42 DC Tramadol HCl (Ultram) 50 mg STK-MED ONCE .ROUTE 06/06/20 15:42 06/06/20 15:43 DC Cefazolin Sodium/ Dextrose 50 ml @ 50 mls/hr Q8H IV 06/06/20 19:00 06/07/20 11:59 06/06/20 18:11 Course Sepsis Screening Results: Posi: POSITIVE Sepsis Qualifier/Stage: SEPSIS RISK Duration or Total Time Spent w: 60 min Vitals & review Data Vital Sign - Last 24 Hours 06/05/20 06/05/20 06/05/20 06/06/20 19:57 23:21 23:24 00:05 Temp 98.6 99.4 Pulse 64 64 65 Resp 18 18 18 B/P (MAP) 102/65 (77) 120/74 (89) Pulse Ox 95 96 95 O2 Delivery Nasal Canula Nasal Cannula Nasal Cannula Nasal Canula O2 Flow Rate 2.00 2.00 2.00 06/06/20 06/06/20 06/06/20 06/06/20 04:53 08:03 10:00 14:24 Temp 99.4 98.4 Pulse 67 63 63 Resp 18 16 16 B/P (MAP) 97/64 (75) 100/59 (73) Pulse Ox 97 93 93 O2 Delivery Nasal Canula Nasal Canula Nasal Cannula O2 Flow Rate 2.00 2.00 10 06/06/20 06/06/20 06/06/20 06/06/20 14:24 14:35 14:45 14:55 Temp 100.8 100.8 100.4 Pulse 73 73 75 69 Resp 16 16 18 16 B/P (MAP) 127/79 (95) 128/90 (103) 107/38 (61) 115/67 (83) Pulse Ox 98 98 99 O2 Delivery Non-Rebreather Non-Rebreather Non-Rebreather Non-Rebreather O2 Flow Rate 10 10 10 10 06/06/20 06/06/20 06/06/20 06/06/20 15:05 15:15 15:25 15:35 Pulse 68 71 67 66 Resp 16 14 16 16 B/P (MAP) 123/79 (94) 120/75 (90) 135/98 (110) 126/79 (95) Pulse Ox 99 100 94 95 O2 Delivery Nasal Canula Nasal Canula Nasal Canula Nasal Canula Non-Rebreather Non-Rebreather O2 Flow Rate 3 3 3 3 06/06/20 06/06/20 06/06/20 15:45 15:55 16:45 Temp 99.9 Pulse 66 66 Resp 16 16 B/P (MAP) 122/76 (91) 120/80 (93) Pulse Ox 97 95 O2 Delivery Nasal Canula Nasal Canula Nasal Cannula Non-Rebreather O2 Flow Rate 3 3 2.00 Intake and Output 06/06/20 07:00 Intake Total 1966 ml Output Total 450 ml Balance 1516 ml Laboratory Tests Test 06/05/20 10:43 06/05/20 18:00 06/05/20 20:25 06/06/20 04:45 White Blood Count 9.9 10^3/uL 8.2 10^3/uL Red Blood Count 4.93 10^6/uL 3.92 10^6/uL Hemoglobin 14.9 g/dL 11.8 g/dL Hematocrit 45.9 % 37.1 % Mean Corpuscular Volume 93.1 fL 94.6 fL Mean Corpuscular Hemoglobin 30.2 pg 30.1 pg Mean Corpuscular Hemoglobin Concent 32.5 g/dL 31.8 g/dL Red Cell Distribution Width 13.2 % 13.2 % Platelet Count 208 10^3/uL 171 10^3/uL Mean Platelet Volume 8.9 fL 8.9 fL Neutrophils (%) (Auto) 80.7 % Lymphocytes (%) (Auto) 14.3 % Monocytes (%) (Auto) 4.4 % Neutrophils # (Auto) 8.0 10^3/uL Lymphocytes # (Auto) 1.41 10^3/uL1 Monocytes # (Auto) 0.4 10^3/uL Absolute Immature Granulocyte (auto 0.03 10^3 u/L Absolute Eosinophils (auto) 0.0 10^3/uL Immature Granulocytes % 0.30 % Eosinophils % 0.2 % Basophils % 0.1 % Basophils # 0.0 10^3/uL Prothrombin Time 27.0 SEC 22.6 SEC 15.1 SEC Prothrombin Time INR (Non-Therap) 2.7 2.2 1.5 Activated Partial Thromboplast Time 26.9 SEC Sodium Level 141 mmol/L 141 mmol/L Potassium Level 4.3 mmol/L 4.0 mmol/L Chloride Level 105.0 mmol/L 106.0 mmol/L Carbon Dioxide Level 27.2 mmol/L 29.6 mmol/L Anion Gap 13.1 9.4 Blood Urea Nitrogen 14 mg/dL 12 mg/dL Creatinine 1.20 mg/dL 1.12 mg/dL Estimated GFR () 53.7 58.2 Est GFR (CKD-EPI)(Non-Afr [place] Citizen) 44.4 48.1 BUN/Creatinine Ratio 11.0 10.0 Glucose Level 134 mg/dL 145 mg/dL Calcium Level 9.1 mg/dL 8.4 mg/dL Total Bilirubin 0.5 mg/dL 0.7 mg/dL Aspartate Amino Transf (AST/SGOT) 13 U/L 36 U/L Alanine Aminotransferase (ALT/SGPT) 19 U/L 40 U/L Alkaline Phosphatase 91 U/L 91 U/L Total Protein 7.1 g/dL 5.9 g/dL Albumin 3.7 g/dL 3.0 g/dL Globulin 3.4 2.9 Albumin/Globulin Ratio 1.088 1.034 Urine Collection Type UNKNOWN Urine Color YELLOW Urine Appearance CLEAR Urine Bilirubin NEGATIVE Urine Ketones NEGATIVE Urine Specific [place] >1.030 Urine pH 5.0 Urine Protein NEGATIVE Urine Urobilinogen NORMAL Urine Nitrate NEGATIVE Urine Leukocyte Esterase NEGATIVE Urine Glucose (Auto)(UA) NEGATIVE Urine Blood MODERATE Urine RBC 2-5 RBC/HPF Urine WBC 0-2 WBC/HPF Urine Squamous Epithelial Cells FEW #/HPF Urine Bacteria NONE SEEN Current Medications Medications (Trade) Dose Ordered Sig/Renée PRN Reason Start Time Stop Time Status Last Admin Acetaminophen (Tylenol) 1,000 mg Q6HR 06/06/20 18:00 07/06/20 17:59 06/06/20 18:09 Cefazolin Sodium/ Dextrose 50 ml @ 50 mls/hr Q8H 06/06/20 19:00 06/07/20 11:59 06/06/20 18:11 Diazepam (Valium) 5 mg Q6HR PRN MUSCLE SPASM 06/05/20 20:30 07/05/20 20:29 06/06/20 00:00 Docusate Sodium (Colace) 100 mg DAILY 06/07/20 09:00 07/07/20 08:59 Famotidine (Pepcid) 20 mg DAILY 06/07/20 09:00 07/07/20 08:59 Rivaroxaban (Xarelto) 10 mg Q24HRS 06/07/20 15:00 07/07/20 14:59 Throat Lozenges (Cepacol Sore Throat Lozenge) 1 each PRN PRN SORE THROAT 06/06/20 15:00 07/06/20 14:59 Tramadol HCl (Ultram) 50 mg Q6H PRN PAIN 1 - 3 06/06/20 15:00 07/06/20 14:59 Tramadol HCl (Ultram) 100 mg Q6H PRN PAIN 4 - 6 06/06/20 15:00 07/06/20 14:59 06/06/20 15:45 LEVEL 1 SEPSIS INFECTION CRITE: ABX Therapy, Recent Invasive Procedure LEVEL 2-SIRS (LIST ALL THAT AP: None/Not assessed Cardiovascular Evidence: Not Assessed or None Hematologic Evidence: None/Not assessed Hepatic Evidence: None/Not assessed Metabolic Evidence: None/Not assessed Neurological Evidence: None/Not assessed Respiratory Evidence: Need for O2 to keep>90% Renal Evidence: None/Not assessed O2 Sat by Pulse Oximetry: 96 Oxygen Flow Rate: 2.00 Assessment/Plan Assessment/Plan Assessment/Plan Right femur fracture- ORIF POD #4. Right knee immobilizer. NWB RLE. PT/OT eval and treat. keep morfin intact due to NWB status, incontinent and morbidly obese fall and safety precautions Plan: placement in [facility] for rehab pending Plan Right femur fracture- ORIF POD #4. Right knee immobilizer. NWB RLE. PT/OT eval and treat. keep morfin intact due to NWB status, incontinent and morbidly obese fall and safety precautions Plan: placement in [facility] for rehab pending DOMINICK WAHL MD Jun 10, 2020 11:10
--- NOTE | 2020-06-10 11:13 | PRM.DC ---
Discharge Summary Date of Discharge: Jun 10, 2020 Time of Request to Discharge: 15:00 Reason for Visit: Fall Hospital Course Ms. Wilson is a pleasant 70-year-old female who presents after a fall which upon radiographic evaluation was found to have caused a right distal femur fract ure. She underwent Surgical repair of the same, and is now discharged to a rehabilitation facility for ongoing recuperation prior to eventual discharge home. Of note, she was on xarelto postop, but will resume warfarin upon discharge both for post fracture prophylaxis and atrial fibrillation propylaxis. General: Alert, Oriented X3, Cooperative HEENT: PERRLA, EOMI Neck: Supple, No thyromegaly Lungs: Clear to auscultation, Normal air movement Heart: Regular rate, Normal S1, No murmurs Abdomen: Normal bowel sounds, Soft, No tenderness Extremities: No clubbing, No cyanosis, No edema, Other (right knee immobilizer in place) Skin: No breakdown, No significant lesion Neuro: Normal gait, Normal speech, Strength at 5/5 X4 ext Psych/Mental Status: Mental status NL, Mood NL Scheduled Aspirin (Aspirin), 1 TAB PO DAILY, (Reported) Bupropion Hcl (Bupropion Xl), 3 TAB PO DAILY, (Reported) Buspirone Hcl (Buspirone Hcl), 1 TAB PO TID, (Reported) Citalopram Hydrobromide (Citalopram Hbr), 1 TAB PO DAILY, (Reported) Flecainide Acetate (Flecainide Acetate), 50 MG PO BID, (Reported) Oxybutynin Chloride (Oxybutynin Chloride Er), 1 TAB PO DAILY, (Reported) Spironolactone 25MG (Aldactone 25MG), 1 TAB PO DAILY, (Reported) Warfarin Sodium (Warfarin Sodium), 1.5 TAB PO M-W-F, (Reported) Warfarin Sodium (Warfarin Sodium), 1 TAB PO [id number], (Reported) Sepsis Evaluation @ Discharge Vital Sign - Last 24 Hours 06/05/20 06/05/20 06/05/20 06/06/20 19:57 23:21 23:24 00:05 Temp 98.6 99.4 Pulse 64 64 65 Resp 18 18 18 B/P (MAP) 102/65 (77) 120/74 (89) Pulse Ox 95 96 95 O2 Delivery Nasal Canula Nasal Cannula Nasal Cannula Nasal Canula O2 Flow Rate 2.00 2.00 2.00 06/06/20 06/06/20 06/06/20 06/06/20 04:53 08:03 10:00 14:24 Temp 99.4 98.4 Pulse 67 63 63 Resp 18 16 16 B/P (MAP) 97/64 (75) 100/59 (73) Pulse Ox 97 93 93 O2 Delivery Nasal Canula Nasal Canula Nasal Cannula O2 Flow Rate 2.00 2.00 10 06/06/20 06/06/20 06/06/20 06/06/20 14:24 14:35 14:45 14:55 Temp 100.8 100.8 100.4 Pulse 73 73 75 69 Resp 16 16 18 16 B/P (MAP) 127/79 (95) 128/90 (103) 107/38 (61) 115/67 (83) Pulse Ox 98 98 99 O2 Delivery Non-Rebreather Non-Rebreather Non-Rebreather Non-Rebreather O2 Flow Rate 10 10 10 10 06/06/20 06/06/20 06/06/20 06/06/20 15:05 15:15 15:25 15:35 Pulse 68 71 67 66 Resp 16 14 16 16 B/P (MAP) 123/79 (94) 120/75 (90) 135/98 (110) 126/79 (95) Pulse Ox 99 100 94 95 O2 Delivery Nasal Canula Nasal Canula Nasal Canula Nasal Canula Non-Rebreather Non-Rebreather O2 Flow Rate 3 3 3 3 06/06/20 06/06/20 06/06/20 15:45 15:55 16:45 Temp 99.9 Pulse 66 66 Resp 16 16 B/P (MAP) 122/76 (91) 120/80 (93) Pulse Ox 97 95 O2 Delivery Nasal Canula Nasal Canula Nasal Cannula Non-Rebreather O2 Flow Rate 3 3 2.00 Intake and Output 06/06/20 07:00 Intake Total 1966 ml Output Total 450 ml Balance 1516 ml Laboratory Tests Test 06/05/20 10:43 06/05/20 18:00 06/05/20 20:25 06/06/20 04:45 White Blood Count 9.9 10^3/uL 8.2 10^3/uL Red Blood Count 4.93 10^6/uL 3.92 10^6/uL Hemoglobin 14.9 g/dL 11.8 g/dL Hematocrit 45.9 % 37.1 % Mean Corpuscular Volume 93.1 fL 94.6 fL Mean Corpuscular Hemoglobin 30.2 pg 30.1 pg Mean Corpuscular Hemoglobin Concent 32.5 g/dL 31.8 g/dL Red Cell Distribution Width 13.2 % 13.2 % Platelet Count 208 10^3/uL 171 10^3/uL Mean Platelet Volume 8.9 fL 8.9 fL Neutrophils (%) (Auto) 80.7 % Lymphocytes (%) (Auto) 14.3 % Monocytes (%) (Auto) 4.4 % Neutrophils # (Auto) 8.0 10^3/uL Lymphocytes # (Auto) 1.41 10^3/uL1 Monocytes # (Auto) 0.4 10^3/uL Absolute Immature Granulocyte (auto 0.03 10^3 u/L Absolute Eosinophils (auto) 0.0 10^3/uL Immature Granulocytes % 0.30 % Eosinophils % 0.2 % Basophils % 0.1 % Basophils # 0.0 10^3/uL Prothrombin Time 27.0 SEC 22.6 SEC 15.1 SEC Prothrombin Time INR (Non-Therap) 2.7 2.2 1.5 Activated Partial Thromboplast Time 26.9 SEC Sodium Level 141 mmol/L 141 mmol/L Potassium Level 4.3 mmol/L 4.0 mmol/L Chloride Level 105.0 mmol/L 106.0 mmol/L Carbon Dioxide Level 27.2 mmol/L 29.6 mmol/L Anion Gap 13.1 9.4 Blood Urea Nitrogen 14 mg/dL 12 mg/dL Creatinine 1.20 mg/dL 1.12 mg/dL Estimated GFR () 53.7 58.2 Est GFR (CKD-EPI)(Non-Afr Dutch) 44.4 48.1 BUN/Creatinine Ratio 11.0 10.0 Glucose Level 134 mg/dL 145 mg/dL Calcium Level 9.1 mg/dL 8.4 mg/dL Total Bilirubin 0.5 mg/dL 0.7 mg/dL Aspartate Amino Transf (AST/SGOT) 13 U/L 36 U/L Alanine Aminotransferase (ALT/SGPT) 19 U/L 40 U/L Alkaline Phosphatase 91 U/L 91 U/L Total Protein 7.1 g/dL 5.9 g/dL Albumin 3.7 g/dL 3.0 g/dL Globulin 3.4 2.9 Albumin/Globulin Ratio 1.088 1.034 Urine Collection Type UNKNOWN Urine Color YELLOW Urine Appearance CLEAR Urine Bilirubin NEGATIVE Urine Ketones NEGATIVE Urine Specific [place] >1.030 Urine pH 5.0 Urine Protein NEGATIVE Urine Urobilinogen NORMAL Urine Nitrate NEGATIVE Urine Leukocyte Esterase NEGATIVE Urine Glucose (Auto)(UA) NEGATIVE Urine Blood MODERATE Urine RBC 2-5 RBC/HPF Urine WBC 0-2 WBC/HPF Urine Squamous Epithelial Cells FEW #/HPF Urine Bacteria NONE SEEN Current Medications Medications (Trade) Dose Ordered Sig/Renée PRN Reason Start Time Stop Time Status Last Admin Acetaminophen (Tylenol) 1,000 mg Q6HR 06/06/20 18:00 07/06/20 17:59 06/06/20 18:09 Cefazolin Sodium/ Dextrose 50 ml @ 50 mls/hr Q8H 06/06/20 19:00 06/07/20 11:59 06/06/20 18:11 Diazepam (Valium) 5 mg Q6HR PRN MUSCLE SPASM 06/05/20 20:30 07/05/20 20:29 06/06/20 00:00 Docusate Sodium (Colace) 100 mg DAILY 06/07/20 09:00 07/07/20 08:59 Famotidine (Pepcid) 20 mg DAILY 06/07/20 09:00 07/07/20 08:59 Rivaroxaban (Xarelto) 10 mg Q24HRS 06/07/20 15:00 07/07/20 14:59 Throat Lozenges (Cepacol Sore Throat Lozenge) 1 each PRN PRN SORE THROAT 06/06/20 15:00 07/06/20 14:59 Tramadol HCl (Ultram) 50 mg Q6H PRN PAIN 1 - 3 06/06/20 15:00 07/06/20 14:59 Tramadol HCl (Ultram) 100 mg Q6H PRN PAIN 4 - 6 06/06/20 15:00 07/06/20 14:59 06/06/20 15:45 Course Sepsis Screening Results: Posi: POSITIVE Sepsis Qualifier/Stage: SEPSIS RISK Duration or Total Time Spent w: 60 min Vitals & review Data Vital Sign - Last 24 Hours 06/05/20 06/05/20 06/05/20 06/06/20 19:57 23:21 23:24 00:05 Temp 98.6 99.4 Pulse 64 64 65 Resp 18 18 18 B/P (MAP) 102/65 (77) 120/74 (89) Pulse Ox 95 96 95 O2 Delivery Nasal Canula Nasal Cannula Nasal Cannula Nasal Canula O2 Flow Rate 2.00 2.00 2.00 06/06/20 06/06/20 06/06/20 06/06/20 04:53 08:03 10:00 14:24 Temp 99.4 98.4 Pulse 67 63 63 Resp 18 16 16 B/P (MAP) 97/64 (75) 100/59 (73) Pulse Ox 97 93 93 O2 Delivery Nasal Canula Nasal Canula Nasal Cannula O2 Flow Rate 2.00 2.00 10 06/06/20 06/06/20 06/06/20 06/06/20 14:24 14:35 14:45 14:55 Temp 100.8 100.8 100.4 Pulse 73 73 75 69 Resp 16 16 18 16 B/P (MAP) 127/79 (95) 128/90 (103) 107/38 (61) 115/67 (83) Pulse Ox 98 98 99 O2 Delivery Non-Rebreather Non-Rebreather Non-Rebreather Non-Rebreather O2 Flow Rate 10 10 10 10 06/06/20 06/06/20 06/06/20 06/06/20 15:05 15:15 15:25 15:35 Pulse 68 71 67 66 Resp 16 14 16 16 B/P (MAP) 123/79 (94) 120/75 (90) 135/98 (110) 126/79 (95) Pulse Ox 99 100 94 95 O2 Delivery Nasal Canula Nasal Canula Nasal Canula Nasal Canula Non-Rebreather Non-Rebreather O2 Flow Rate 3 3 3 3 06/06/20 06/06/20 06/06/20 15:45 15:55 16:45 Temp 99.9 Pulse 66 66 Resp 16 16 B/P (MAP) 122/76 (91) 120/80 (93) Pulse Ox 97 95 O2 Delivery Nasal Canula Nasal Canula Nasal Cannula Non-Rebreather O2 Flow Rate 3 3 2.00 Intake and Output 06/06/20 07:00 Intake Total 1966 ml Output Total 450 ml Balance 1516 ml Laboratory Tests Test 06/05/20 10:43 06/05/20 18:00 06/05/20 20:25 06/06/20 04:45 White Blood Count 9.9 10^3/uL 8.2 10^3/uL Red Blood Count 4.93 10^6/uL 3.92 10^6/uL Hemoglobin 14.9 g/dL 11.8 g/dL Hematocrit 45.9 % 37.1 % Mean Corpuscular Volume 93.1 fL 94.6 fL Mean Corpuscular Hemoglobin 30.2 pg 30.1 pg Mean Corpuscular Hemoglobin Concent 32.5 g/dL 31.8 g/dL Red Cell Distribution Width 13.2 % 13.2 % Platelet Count 208 10^3/uL 171 10^3/uL Mean Platelet Volume 8.9 fL 8.9 fL Neutrophils (%) (Auto) 80.7 % Lymphocytes (%) (Auto) 14.3 % Monocytes (%) (Auto) 4.4 % Neutrophils # (Auto) 8.0 10^3/uL Lymphocytes # (Auto) 1.41 10^3/uL1 Monocytes # (Auto) 0.4 10^3/uL Absolute Immature Granulocyte (auto 0.03 10^3 u/L Absolute Eosinophils (auto) 0.0 10^3/uL Immature Granulocytes % 0.30 % Eosinophils % 0.2 % Basophils % 0.1 % Basophils # 0.0 10^3/uL Prothrombin Time 27.0 SEC 22.6 SEC 15.1 SEC Prothrombin Time INR (Non-Therap) 2.7 2.2 1.5 Activated Partial Thromboplast Time 26.9 SEC Sodium Level 141 mmol/L 141 mmol/L Potassium Level 4.3 mmol/L 4.0 mmol/L Chloride Level 105.0 mmol/L 106.0 mmol/L Carbon Dioxide Level 27.2 mmol/L 29.6 mmol/L Anion Gap 13.1 9.4 Blood Urea Nitrogen 14 mg/dL 12 mg/dL Creatinine 1.20 mg/dL 1.12 mg/dL Estimated GFR () 53.7 58.2 Est GFR (CKD-EPI)(Non-Afr Dutch) 44.4 48.1 BUN/Creatinine Ratio 11.0 10.0 Glucose Level 134 mg/dL 145 mg/dL Calcium Level 9.1 mg/dL 8.4 mg/dL Total Bilirubin 0.5 mg/dL 0.7 mg/dL Aspartate Amino Transf (AST/SGOT) 13 U/L 36 U/L Alanine Aminotransferase (ALT/SGPT) 19 U/L 40 U/L Alkaline Phosphatase 91 U/L 91 U/L Total Protein 7.1 g/dL 5.9 g/dL Albumin 3.7 g/dL 3.0 g/dL Globulin 3.4 2.9 Albumin/Globulin Ratio 1.088 1.034 Urine Collection Type UNKNOWN Urine Color YELLOW Urine Appearance CLEAR Urine Bilirubin NEGATIVE Urine Ketones NEGATIVE Urine Specific [place] >1.030 Urine pH 5.0 Urine Protein NEGATIVE Urine Urobilinogen NORMAL Urine Nitrate NEGATIVE Urine Leukocyte Esterase NEGATIVE Urine Glucose (Auto)(UA) NEGATIVE Urine Blood MODERATE Urine RBC 2-5 RBC/HPF Urine WBC 0-2 WBC/HPF Urine Squamous Epithelial Cells FEW #/HPF Urine Bacteria NONE SEEN Current Medications Medications (Trade) Dose Ordered Sig/Renée PRN Reason Start Time Stop Time Status Last Admin Acetaminophen (Tylenol) 1,000 mg Q6HR 06/06/20 18:00 07/06/20 17:59 06/06/20 18:09 Cefazolin Sodium/ Dextrose 50 ml @ 50 mls/hr Q8H 06/06/20 19:00 06/07/20 11:59 06/06/20 18:11 Diazepam (Valium) 5 mg Q6HR PRN MUSCLE SPASM 06/05/20 20:30 07/05/20 20:29 06/06/20 00:00 Docusate Sodium (Colace) 100 mg DAILY 06/07/20 09:00 07/07/20 08:59 Famotidine (Pepcid) 20 mg DAILY 06/07/20 09:00 07/07/20 08:59 Rivaroxaban (Xarelto) 10 mg Q24HRS 06/07/20 15:00 07/07/20 14:59 Throat Lozenges (Cepacol Sore Throat Lozenge) 1 each PRN PRN SORE THROAT 06/06/20 15:00 07/06/20 14:59 Tramadol HCl (Ultram) 50 mg Q6H PRN PAIN 1 - 3 06/06/20 15:00 07/06/20 14:59 Tramadol HCl (Ultram) 100 mg Q6H PRN PAIN 4 - 6 06/06/20 15:00 07/06/20 14:59 06/06/20 15:45 LEVEL 1 SEPSIS INFECTION CRITE: ABX Therapy, Recent Invasive Procedure LEVEL 2-SIRS (LIST ALL THAT AP: None/Not assessed Cardiovascular Evidence: Not Assessed or None Hematologic Evidence: None/Not assessed Hepatic Evidence: None/Not assessed Metabolic Evidence: None/Not assessed Neurological Evidence: None/Not assessed Respiratory Evidence: Need for O2 to keep>90% Renal Evidence: None/Not assessed O2 Sat by Pulse Oximetry: 96 Oxygen Flow Rate: 2.00 Plan Problems: (1) Fracture, femur Status: Acute ICD Code: S72.90XA - Unspecified fracture of unspecified femur, initial encounter for closed fracture SNOMED: 50347077 Assessment & Plan: s/p operative repair, pending rehab placement (2) Atrial fibrillation Status: Chronic ICD Code: I48.91 - Unspecified atrial fibrillation SNOMED: 92292721 Assessment & Plan: c/w home metoprolol and flecainide, resuming warfarin up on discharge (3) Apnea, sleep Status: Chronic ICD Code: G47.30 - Sleep apnea, unspecified SNOMED: [id number] Assessment & Plan: CPAP at night, 12cm [place] Problem Qualifiers (1) Fracture, femur: Encounter type: subsequent encounter Femur location: shaft Fracture type: closed Fracture morphology: transverse Fracture alignment: displaced Laterality: right GAEL SCHUMACHER MD Jun 10, 2020 11:13
--- NOTE | 2020-06-10 11:45 | NUR ---
STATUS PT IS BEING DISCHARGED; MIDLINE ACCESS DC'D; CATHETER INTACT; SITE WITHOUT ANY REDNESS OR EDEMA. URINE SPECIMEN OBTAINED VIA GREEN CATHETER.
[2020-06-10 12:03] LABS: BILIRUBIN,URINE NEGATIVE (NEGATIVE); UA COLOR YELLOW
[2020-06-10 12:04] LABS: YEAST,URINE RARE
[2020-06-10 12:52] VITALS: BP 118/57
--- NOTE | 2020-06-10 15:21 | NUR ---
DISCHARGE PT HAS BEEN DISCHARGED TO [facility]. REPORT CALLED TO EZEQUIEL. PT LEFT VIA AMBULANCE IN THE COMPANY OF CREW.
[2020-06-10 15:25] VITALS: BP 118/57
== END 2020-06-10 15:20 | DRG 481 ==
LOC: ER 10:15 → EDBD 10:15 → MS 12:23
PROVIDERS: ADMIT Pediatrics; ATTEND Pediatrics
PROC: 2W3QX1Z Immobilization of Right Lower Leg using Splint (ICD-10-PCS; 2020-06-05)
PROC: 05HY33Z Insertion of Infusion Device into Upper Vein, Percutaneous Approach (ICD-10-PCS; 2020-06-05)
PROC: 0QSB04Z Reposition Right Lower Femur with Internal Fixation Device, Open Approach (ICD-10-PCS; principal; 2020-06-06 10:55)
PROC: 30233N1 Transfusion of Nonautologous Red Blood Cells into Peripheral Vein, Percutaneous Approach (ICD-10-PCS; 2020-06-07)
PROC: 5A09357 Assistance with Respiratory Ventilation, Less than 24 Consecutive Hours, Continuous Positive Airway Pressure (ICD-10-PCS; 2020-06-08)
DX: S72.401A Unspecified fracture of lower end of right femur, initial encounter for closed fracture (principal); M97.11XA Periprosthetic fracture around internal prosthetic right knee joint, initial encounter; I48.20 Chronic atrial fibrillation, unspecified; Z68.43 Body mass index [BMI] 50.0-59.9, adult; F32.9 Major depressive disorder, single episode, unspecified; F41.9 Anxiety disorder, unspecified; W01.0XXA Fall on same level from slipping, tripping and stumbling without subsequent striking against object, initial encounter; E66.01 Morbid (severe) obesity due to excess calories; G47.30 Sleep apnea, unspecified; G47.33 Obstructive sleep apnea (adult) (pediatric); I10 Essential (primary) hypertension; Z79.01 Long term (current) use of anticoagulants; Z79.82 Long term (current) use of aspirin; Z90.710 Acquired absence of both cervix and uterus; Z95.0 Presence of cardiac pacemaker; Y93.89 Activity, other specified; Y92.89 Other specified places as the place of occurrence of the external cause; Y99.8 Other external cause status; Z90.49 Acquired absence of other specified parts of digestive tract
CPT/HCPCS: 36415; 36430; 36569; 71045; 73560; 76000; 80048; 80053; 81000; 81003; 85014; 85018; 85025; 85027; 85610; 85730; 86885; 86900; 86901; 86923; 87086; 90715; 93005; 97163; 97166; 99285; A4217; A6550; C1713; G0378; J0131; J0690; J1100; J1170; J1885; J2001; J2405; J3010; J3490; J7030; J7040; J7050; J7120; P9016; Q0163; 73550-RT; 97530-GP; 97535-GO; J3430